=== PATIENT | female | born 1990 | race Caucasian/White ===

== ENCOUNTER 2020-04-08 22:27 | Inpatient (IN) | payer OTHER ==
[~2020-04-08] VITALS: Ht 165.1 cm; Wt 70.9 kg
[2020-04-08 22:45] VITALS: BP 185/108
--- NOTE | 2020-04-08 22:50 | NUR ---
Patient admitted to room 104 from [facility] ED via EMS at 2230, accompanied by Power Transformer Repairer/EMT. Patient alert, oriented to self, knows she is in the hospital but unable to recall which hospital, and is only oriented to year--unable to correctly state day, date, or year, and she is also very forgetful and impulsive. Patient oriented to ICU routine, Nursing call light, TV/Bed control, activity (BR), diet (NPO), Side rail policy, smoking policy, visitation policy with Covid patients, Numeric pain scale, and POC. Dr Wiggins called prior to patient arrival for admit orders to include ativan/haldol for alcohol withdrawal (CIWA)--see orders. See admission information/assessment/CIWA to follow.
[2020-04-08 23:00] VITALS: BP 164/118
--- NOTE | 2020-04-08 23:00 | NUR ---
After explanation to patient, #18 [place] inserted using sterile technique with immediate return of clear straw urine. Patient tolerated procedure well.
[2020-04-08 23:15] VITALS: BP 178/122
[2020-04-08 23:30] VITALS: BP 170/98
[2020-04-08] MEDS ORDERED: cloNIDine HCL 0.1 MG TABLET PO PRN (23:30)
[2020-04-08 23:45] VITALS: BP 162/119
[2020-04-08] MEDS: IV RINGERS,LACTATED 1000ML 1,000 ML IV SCH (23:53)
[2020-04-08 23:59] VITALS: BP 172/120
[2020-04-09] VITALS (24 sets, daily range): BP systolic 145–189; BP diastolic 89–124
[2020-04-09 00:31] LABS: CALCIUM 8.8 mg/dL (8.5-10.1); CREATININE 0.7 mg/dL (0.6-1.0); GFR 98.3; MAGNESIUM 1.9 mg/dL (1.8-2.4); POTASSIUM 3.7 mmol/L (3.5-5.1)
[2020-04-09] MEDS: HALOPERIDOL LACTATE 5 MG/ML VIAL. IVP PRN (01:46)
[2020-04-09] MEDS ORDERED: ATROPINE 0.5 MG/5 ML DISP.SYRINGE. IV PRN (03:00)
[2020-04-09] MEDS ORDERED: IV NORMAL SALINE 500ML BAG 500 ML IV PRN ×2 (03:00→11:30)
[2020-04-09] MEDS: DEXMEDETOMIDINE 400 MCG in IV NORMAL SALINE 100ML 96 ML IV PRN ×4 (03:27→21:22)
[2020-04-09] MEDS: LABETALOL 20 MG/4 ML DISP.SYRIN. IVP PRN ×2 (03:57→17:10)
--- NOTE | 2020-04-09 04:15 | NUR ---
From 49 to 249 patient was given total 14MG Ativan IVP plus 5MG Haldol IVP and patient continued to be veru restless and getting out of bed with CIWA as high as 26 even after medications, SBP elevated to 180's with DBP up to 120's. Patient snoring respirations are now much louder, speech is more garbled and swelling of tongue ahd increased involving almost the entirety of the tongue; RR mid to upper 20's and O2 saturation 92-95%. Dr Feliciano hansen, returned page at 249 and notified of above. Orders received to start Precedex for sedation and give Labetalol 10MG Q2HR PRN IVP and may give up to 30MG Q10MIN until SBP <180. See orders, CIWA, and Vital signs. Right nare nasopharyngeal airway placed for worsening snoring respiration and concern with airway; snoring immediately stopped, RR dropped to 16 and O2 saturation increased consistently to the mid 90's. Will continue to monitor and titrate Precedex for CIWA <6.
[2020-04-09 08:00] LABS: BASO # 0.1 x10^3/uL (0.0-0.2); BASO % 1 % (0-3); EOS % 0 % (0-3); HEMATOCRIT 45.5 % (36.0-47.0); HEMOGLOBIN 15.2 g/dL (12.0-15.5); LYMPH # 0.8 x10^3/uL (1.0-4.8); LYMPH % 10 % (24-48); MEAN CORPUSCULAR HEMOGLOBIN 33 pg (25-35); MEAN CORPUSCULAR HGB CONC 34 g/dL (31-37); MEAN CORPUSCULAR VOLUME 98 fL (79-100); MONO # 0.6 x10^3/uL (0.0-1.1); MONO % 8 % (0-9); NEUT # 6.1 x10^3/uL (1.8-7.7); NEUT % 80 % (31-73); PLATELET COUNT 135 x10^3/uL (140-400); RED BLOOD COUNT 4.65 x10^6/uL (3.50-5.40); RED CELL DISTRIBUTION WIDTH 13.4 % (11.5-14.5); WHITE BLOOD COUNT 7.6 x10^3/uL (4.0-11.0)
--- NOTE | 2020-04-09 08:19 | PDOC1 ---
History and Physical Date of Admission Date of Admission DATE: 04/09/20 TIME: 08:17 Identification/Chief Complaint Chief Complaint dictated Past Medical History Psych: Addictions Family History Family History: Hypertension Social History Smoke: <1 pack per day ALCOHOL: heavy Drugs: Cocaine Current Medications Current Medications Current Medications Lorazepam (Ativan) 4 mg PRN Q1HR PRN PO For CIWA 8-14; Start 04/08/20 at 23:30 Lorazepam (Ativan) 8 mg PRN Q1HR PRN PO For CIWA 15 or greater; Start 04/08/20 at 23:30 Lorazepam (Ativan Inj) 2 mg PRN Q1HR PRN IV For CIWA 8-14; Start 04/08/20 at 23:30 Lorazepam (Ativan Inj) 4 mg PRN Q1HR PRN IV For CIWA 15 or greater Last administered on 04/09/20at 00:52; Start 04/08/20 at 23:30 Haloperidol Lactate (Haldol Inj) 5 mg PRN Q4HRS PRN IVP Hallucinatns,Confusn,Delirium Last administered on 04/09/20at 01:46; Start 04/08/20 at 23:30 Clonidine HCl (Catapres) 0.1 mg PRN Q1HR PRN PO SBP > 180 OR DBP > 100, MRX3 Last administered on 04/09/20at 00:15; Start 04/08/20 at 23:30 Lorazepam (Ativan Inj) 2 mg PRN Q15MIN PRN IV SEE COMMENTS Last administered on 04/08/20at 23:48; Start 04/08/20 at 23:30 Lorazepam (Ativan Inj) 4 mg PRN Q15MIN PRN IV SEE COMMENTS Last administered on 04/09/20at 02:34; Start 04/08/20 at 23:30 Levetiracetam 500 mg/Dextrose 105 ml @ 420 mls/hr Q12HR IV ; Start 04/09/20 at 09:00 Ringer's Solution 1,000 ml @ 100 mls/hr Q10H IV Last administered on 04/08/20at 23:53; Start 04/08/20 at 23:30 Labetalol HCl (Normodyne Iv Push) 10 mg PRN Q2HRS PRN IVP HYPERTENSION Last administered on 04/09/20at 03:57; Start 04/09/20 at 03:00 Dexmedetomidine HCl 400 mcg/ Sodium Chloride 100 ml @ 0 mls/hr CONT PRN IV PER PROTOCOL Last administered on 04/09/20at 03:27; Start 04/09/20 at 03:00 Sodium Chloride 500 ml @ 500 mls/hr 1X PRN PRN IV SEE COMMENTS; Start 04/09/20 at 03:00 Atropine Sulfate (ATROPINE 0.5mg SYRINGE) 0.5 mg PRN Q5MIN PRN IV SEE COMMENTS; Start 04/09/20 at 03:00 Allergies Allergies: Coded Allergies: No Known Drug Allergies (Unverified , 04/08/20) ROS Review of System unable to participate General: YES: Chills Physical Exam General: Cooperative, Other (sedated) Lungs: Clear to auscultation Heart: RRR Breasts: Not examined Abdomen: Normal bowel sounds, Soft Rectal Exam: not examined PELVIC: Examination not indicated Extremities: No cyanosis Vitals Vitals Vital Signs Date Time Temp Pulse Resp B/P (MAP) Pulse Ox O2 Delivery O2 Flow Rate FiO2 04/09/20 07:48 Room Air 04/09/20 07:00 77 14 146/109 (121) 95 04/09/20 04:00 98.8 98.8 Labs Labs Laboratory Tests Test 04/08/20 23:51 04/09/20 07:30 Sodium Level 134 mmol/L (136-145) Potassium Level 3.7 mmol/L (3.5-5.1) Chloride Level 98 mmol/L (98-107) Carbon Dioxide Level 27 mmol/L (21-32) Anion Gap 9 (6-14) Blood Urea Nitrogen 8 mg/dL (7-20) Creatinine 0.7 mg/dL (0.6-1.0) Estimated GFR (Cockcroft-Gault) 98.3 Glucose Level 81 mg/dL (70-99) Calcium Level 8.8 mg/dL (8.5-10.1) Magnesium Level 1.9 mg/dL (1.8-2.4) White Blood Count 7.6 x10^3/uL (4.0-11.0) Red Blood Count 4.65 x10^6/uL (3.50-5.40) Hemoglobin 15.2 g/dL (12.0-15.5) Hematocrit 45.5 % (36.0-47.0) Mean Corpuscular Volume 98 fL (79-100) Mean Corpuscular Hemoglobin 33 pg (25-35) Mean Corpuscular Hemoglobin Concent 34 g/dL (31-37) Red Cell Distribution Width 13.4 % (11.5-14.5) Platelet Count 135 x10^3/uL (140-400) Neutrophils (%) (Auto) 80 % (31-73) Lymphocytes (%) (Auto) 10 % (24-48) Monocytes (%) (Auto) 8 % (0-9) Eosinophils (%) (Auto) 0 % (0-3) Basophils (%) (Auto) 1 % (0-3) Neutrophils # (Auto) 6.1 x10^3/uL (1.8-7.7) Lymphocytes # (Auto) 0.8 x10^3/uL (1.0-4.8) Monocytes # (Auto) 0.6 x10^3/uL (0.0-1.1) Eosinophils # (Auto) 0.0 x10^3/uL (0.0-0.7) Basophils # (Auto) 0.1 x10^3/uL (0.0-0.2) Laboratory Tests Test 04/08/20 23:51 04/09/20 07:30 Sodium Level 134 mmol/L (136-145) Potassium Level 3.7 mmol/L (3.5-5.1) Chloride Level 98 mmol/L (98-107) Carbon Dioxide Level 27 mmol/L (21-32) Anion Gap 9 (6-14) Blood Urea Nitrogen 8 mg/dL (7-20) Creatinine 0.7 mg/dL (0.6-1.0) Estimated GFR (Cockcroft-Gault) 98.3 Glucose Level 81 mg/dL (70-99) Calcium Level 8.8 mg/dL (8.5-10.1) Magnesium Level 1.9 mg/dL (1.8-2.4) White Blood Count 7.6 x10^3/uL (4.0-11.0) Red Blood Count 4.65 x10^6/uL (3.50-5.40) Hemoglobin 15.2 g/dL (12.0-15.5) Hematocrit 45.5 % (36.0-47.0) Mean Corpuscular Volume 98 fL (79-100) Mean Corpuscular Hemoglobin 33 pg (25-35) Mean Corpuscular Hemoglobin Concent 34 g/dL (31-37) Red Cell Distribution Width 13.4 % (11.5-14.5) Platelet Count 135 x10^3/uL (140-400) Neutrophils (%) (Auto) 80 % (31-73) Lymphocytes (%) (Auto) 10 % (24-48) Monocytes (%) (Auto) 8 % (0-9) Eosinophils (%) (Auto) 0 % (0-3) Basophils (%) (Auto) 1 % (0-3) Neutrophils # (Auto) 6.1 x10^3/uL (1.8-7.7) Lymphocytes # (Auto) 0.8 x10^3/uL (1.0-4.8) Monocytes # (Auto) 0.6 x10^3/uL (0.0-1.1) Eosinophils # (Auto) 0.0 x10^3/uL (0.0-0.7) Basophils # (Auto) 0.1 x10^3/uL (0.0-0.2) VTE Prophylaxis Ordered VTE Prophylaxis Devices: No VTE Pharmacological Prophylaxi: Yes Assessment/Plan Assessment/Plan impression SEIZURE, Suspect from alcohol withdrawal, Recurrent hx BINGE DRINKING POLYSUBSTANCE ABUSE HX AMS with disconjugate gaze possible aspiration pneumonia lactic acidosis, possibly from seizure, r/o sepsis ELEVATED LFT'S, TREND TONGUE EDEMA plan blood and urine cultures seizure precautions emperic iv antibiotics ID CONSULT Neurology consult MRI BRAIN dvt prophylaxis GI PROPHYLAXIS ASPIRATION PRECAUTIONS BEAUTY ADVISOR CONSULT IV FLUID SUPPORT NASAL TRUMPET iv thiamine dictated 43 min cc time Justifications for Admission Other Justification BRISA GARRETT MD Apr 09, 2020 08:19
[2020-04-09] MEDS ORDERED: IV NORMAL SALINE 1000ML BAG 1,000 ML IV SCH ×2 (08:45→11:30)
[2020-04-09] MEDS: IV RINGERS,LACTATED 1000ML 1,000 ML IV SCH (08:57)
[2020-04-09] MEDS: levETIRAcetam 500 MG in IV DEXTROSE 5% 100ML 100 ML IV SCH ×2 (08:58→20:54)
--- NOTE | 2020-04-09 09:10 | PDOC2 ---
NEUROLOGY CONSULT Date of Service DOS: DATE: 04/09/20 TIME: 08:53 Reason for Consult Reason for Consult: Seizures, altered mental status Referring Physician Referring Physician: Dr. Ramirez Source Source: Chart review History of Present Illness History of Present Illness The patient is a 29-year-old female brought to the [facility] emergency department by emergency medical services with seizure activity. She was with a friend visiting from [place] for a . They had been drinking a lot of alcohol 04/03-04/04, less on 04/05, last drink on 04/07. The patient also did cocaine a couple weeks ago. 04/08, patient was complaining of fevers, chills, later found by the friend on the floor with abnormal body movements. Emergency medical services arrived, patient declined transfer, but shortly after that, she had another seizure, emergency medical services returned and transferred her to the emergency department. She was somewhat confused in the emergency depar tment. She had another seizure in the emergency department and bit her tongue. There was tongue swelling. Patient reduced [place] Coma Scale to 7, intubation was contemplated, but mental status rapidly improved. She still has a swollen tongue, though. Apparently there is no past history of stroke, seizure, or head injury. No one is available to give further history. She was started on levetiracetam. Here in the [place] intensive care unit the patient is on a Precedex drip and a nasal trumpet, but has not required intubation. She has had no further seizures. Past Medical History Cardiovascular: HTN Psych: Anxiety, Addictions, Depression, Other (Bulimia) Past Surgical History Past Surgical History: No pertinent history Family History Family History: CAD, Hypertension Social History Social History Does drink alcohol, use cocaine, is employed, single, lives in [place] Current Medications Current Medications Current Medications Lorazepam (Ativan) 4 mg PRN Q1HR PRN PO For CIWA 8-14; Start 04/08/20 at 23:30 Lorazepam (Ativan) 8 mg PRN Q1HR PRN PO For CIWA 15 or greater; Start 04/08/20 at 23:30 Lorazepam (Ativan Inj) 2 mg PRN Q1HR PRN IV For CIWA 8-14; Start 04/08/20 at 23:30 Lorazepam (Ativan Inj) 4 mg PRN Q1HR PRN IV For CIWA 15 or greater Last administered on 04/09/20at 00:52; Start 04/08/20 at 23:30 Haloperidol Lactate (Haldol Inj) 5 mg PRN Q4HRS PRN IVP Hallucinatns,Confusn,Delirium Last administered on 04/09/20at 01:46; Start 04/08/20 at 23:30 Clonidine HCl (Catapres) 0.1 mg PRN Q1HR PRN PO SBP > 180 OR DBP > 100, MRX3 Last administered on 04/09/20at 00:15; Start 04/08/20 at 23:30 Lorazepam (Ativan Inj) 2 mg PRN Q15MIN PRN IV SEE COMMENTS Last administered on 04/08/20at 23:48; Start 04/08/20 at 23:30 Lorazepam (Ativan Inj) 4 mg PRN Q15MIN PRN IV SEE COMMENTS Last administered on 04/09/20at 02:34; Start 04/08/20 at 23:30 Levetiracetam 500 mg/Dextrose 105 ml @ 420 mls/hr Q12HR IV ; Start 04/09/20 at 09:00 Ringer's Solution 1,000 ml @ 100 mls/hr Q10H IV Last administered on 04/08/20at 23:53; Start 04/08/20 at 23:30 Labetalol HCl (Normodyne Iv Push) 10 mg PRN Q2HRS PRN IVP HYPERTENSION Last administered on 04/09/20at 03:57; Start 04/09/20 at 03:00 Dexmedetomidine HCl 400 mcg/ Sodium Chloride 100 ml @ 0 mls/hr CONT PRN IV PER PROTOCOL Last administered on 04/09/20at 03:27; Start 04/09/20 at 03:00 Sodium Chloride 500 ml @ 500 mls/hr 1X PRN PRN IV SEE COMMENTS; Start 04/09/20 at 03:00 Atropine Sulfate (ATROPINE 0.5mg SYRINGE) 0.5 mg PRN Q5MIN PRN IV SEE COMMENTS; Start 04/09/20 at 03:00 Sodium Chloride 1,000 ml @ 50 mls/hr Q20H IV ; Start 04/09/20 at 08:45 Allergies Allergies: Coded Allergies: No Known Drug Allergies (Unverified , 04/08/20) ROS Review of System Unobtainable Physical Exam Physical Examination General: Well-developed, well-nourished white female in no acute distress HEENT: Normocephalic. Tongue is swollen. Temporal arteriespulsatile and nontender. Neck: Supple without bruit, no meningismus Musculoskeletal: Stability:see neurologic. Gait exam:see neurologic. Tone:see neurologic.Strength:see neurologic. Neurological: Mental Status:orientation, memory, attention span/concentration, language, fund of knowledge: Sedated, nasal trumpet in place, minimal response to pain. Cranial Nerves:Pupils equal and reactive to light, extraocular movements areintact, but gaze is disconjugate. There is no facial asymmetry.All other cranial related problems are negative except as mentioned before.Reflexes:2+ and symmetric with flexor plantar responses. Motor:Slight withdrawal to pain, with normal tone and bulk. Coordination and gait:Not cooperative. Sensory:Not cooperative. Vitals VITALS Vital Signs Date Time Temp Pulse Resp B/P (MAP) Pulse Ox O2 Delivery O2 Flow Rate FiO2 04/09/20 07:48 Room Air 04/09/20 07:00 77 14 146/109 (121) 95 04/09/20 04:00 98.8 98.8 Labs Labs Laboratory Tests Test 04/08/20 23:51 04/09/20 07:30 Sodium Level 134 mmol/L (136-145) Potassium Level 3.7 mmol/L (3.5-5.1) Chloride Level 98 mmol/L (98-107) Carbon Dioxide Level 27 mmol/L (21-32) Anion Gap 9 (6-14) Blood Urea Nitrogen 8 mg/dL (7-20) Creatinine 0.7 mg/dL (0.6-1.0) Estimated GFR (Cockcroft-Gault) 98.3 Glucose Level 81 mg/dL (70-99) Calcium Level 8.8 mg/dL (8.5-10.1) Magnesium Level 1.9 mg/dL (1.8-2.4) White Blood Count 7.6 x10^3/uL (4.0-11.0) Red Blood Count 4.65 x10^6/uL (3.50-5.40) Hemoglobin 15.2 g/dL (12.0-15.5) Hematocrit 45.5 % (36.0-47.0) Mean Corpuscular Volume 98 fL (79-100) Mean Corpuscular Hemoglobin 33 pg (25-35) Mean Corpuscular Hemoglobin Concent 34 g/dL (31-37) Red Cell Distribution Width 13.4 % (11.5-14.5) Platelet Count 135 x10^3/uL (140-400) Neutrophils (%) (Auto) 80 % (31-73) Lymphocytes (%) (Auto) 10 % (24-48) Monocytes (%) (Auto) 8 % (0-9) Eosinophils (%) (Auto) 0 % (0-3) Basophils (%) (Auto) 1 % (0-3) Neutrophils # (Auto) 6.1 x10^3/uL (1.8-7.7) Lymphocytes # (Auto) 0.8 x10^3/uL (1.0-4.8) Monocytes # (Auto) 0.6 x10^3/uL (0.0-1.1) Eosinophils # (Auto) 0.0 x10^3/uL (0.0-0.7) Basophils # (Auto) 0.1 x10^3/uL (0.0-0.2) Laboratory Tests Test 04/08/20 23:51 04/09/20 07:30 Sodium Level 134 mmol/L (136-145) Potassium Level 3.7 mmol/L (3.5-5.1) Chloride Level 98 mmol/L (98-107) Carbon Dioxide Level 27 mmol/L (21-32) Anion Gap 9 (6-14) Blood Urea Nitrogen 8 mg/dL (7-20) Creatinine 0.7 mg/dL (0.6-1.0) Estimated GFR (Cockcroft-Gault) 98.3 Glucose Level 81 mg/dL (70-99) Calcium Level 8.8 mg/dL (8.5-10.1) Magnesium Level 1.9 mg/dL (1.8-2.4) White Blood Count 7.6 x10^3/uL (4.0-11.0) Red Blood Count 4.65 x10^6/uL (3.50-5.40) Hemoglobin 15.2 g/dL (12.0-15.5) Hematocrit 45.5 % (36.0-47.0) Mean Corpuscular Volume 98 fL (79-100) Mean Corpuscular Hemoglobin 33 pg (25-35) Mean Corpuscular Hemoglobin Concent 34 g/dL (31-37) Red Cell Distribution Width 13.4 % (11.5-14.5) Platelet Count 135 x10^3/uL (140-400) Neutrophils (%) (Auto) 80 % (31-73) Lymphocytes (%) (Auto) 10 % (24-48) Monocytes (%) (Auto) 8 % (0-9) Eosinophils (%) (Auto) 0 % (0-3) Basophils (%) (Auto) 1 % (0-3) Neutrophils # (Auto) 6.1 x10^3/uL (1.8-7.7) Lymphocytes # (Auto) 0.8 x10^3/uL (1.0-4.8) Monocytes # (Auto) 0.6 x10^3/uL (0.0-1.1) Eosinophils # (Auto) 0.0 x10^3/uL (0.0-0.7) Basophils # (Auto) 0.1 x10^3/uL (0.0-0.2) [facility] labs: Laboratory Tests Test 04/08/20 16:15 04/08/20 16:55 04/08/20 17:55 White Blood Count 5.1 x10^3/uL (4.0-11.0) Red Blood Count 5.16 x10^6/uL (3.50-5.40) Hemoglobin 17.0 g/dL (12.0-15.5) H Hematocrit 51.4 % (36.0-47.0) H Mean Corpuscular Volume 100 fL (79-100) Mean Corpuscular Hemoglobin 33 pg (25-35) Mean Corpuscular Hemoglobin Concent 33 g/dL (31-37) Red Cell Distribution Width 13.4 % (11.5-14.5) Platelet Count 150 x10^3/uL (140-400) Neutrophils (%) (Auto) 71 % (31-73) Lymphocytes (%) (Auto) 19 % (24-48) L Monocytes (%) (Auto) 8 % (0-9) Eosinophils (%) (Auto) 1 % (0-3) Basophils (%) (Auto) 1 % (0-3) Neutrophils # (Auto) 3.6 x10^3uL (1.8-7.7) Lymphocytes # (Auto) 1.0 x10^3/uL (1.0-4.8) Monocytes # (Auto) 0.4 x10^3/uL (0.0-1.1) Eosinophils # (Auto) 0.0 x10^3/uL (0.0-0.7) Basophils # (Auto) 0.1 x10^3/uL (0.0-0.2) Sodium Level 137 mmol/L (136-145) Potassium Level 3.9 mmol/L (3.5-5.1) Chloride Level 98 mmol/L (98-107) Carbon Dioxide Level 21 mmol/L (21-32) Anion Gap 18 (6-14) H Blood Urea Nitrogen 10 mg/dL (7-20) Creatinine 1.0 mg/dL (0.6-1.0) Estimated GFR (Cockcroft-Gault) 65.1 BUN/Creatinine Ratio 10 (6-20) Glucose Level 154 mg/dL (70-99) H Calcium Level 10.2 mg/dL (8.5-10.1) H Magnesium Level 1.3 mg/dL (1.8-2.4) L Total Bilirubin 1.5 mg/dL (0.2-1.0) H Aspartate Amino Transferase (AST) 215 U/L (15-37) H Alanine Aminotransferase (ALT) 117 U/L (14-59) H Alkaline Phosphatase 90 U/L (46-116) Troponin I Quantitative < 0.017 ng/mL (0-0.055) Total Protein 8.7 g/dL (6.4-8.2) H Albumin 3.8 g/dL (3.4-5.0) Albumin/Globulin Ratio 0.8 (1.0-1.7) L Lipase 235 U/L (73-393) Serum Test, Qualitative Negative (NEG) Salicylates Level < 2.8 mg/dL (2.8-20.0) L Salicylate Last Dose Date Unknown Salicylate Last Dose Time Unknown Acetaminophen Level < 2.0 mcg/mL (10-30) L Acetaminophen Last Dose Date Unknown Acetaminophen Last Dose Time Unknown Ethyl Alcohol Level < 10 mg/dL (0-10) Lactic Acid Level 9.3 mmol/L (0.4-2.0) *H Ammonia 22 mcmol/L (11-34) Urine Collection Type U cath Urine Color Yellow Urine Clarity Clear Urine pH 6.0 Urine Specific [place] 1.025 Urine Protein >100 mg/dl (NEG-TRACE) Urine Glucose (UA) Neg mg/dL (NEG) Urine Ketones (Stick) Neg mg/dL (NEG) Urine Blood Mod (NEG) Urine Nitrite Neg (NEG) Urine Bilirubin Neg (NEG) Urine Urobilinogen Dipstick 0.2 mg/dL (0.2 mg/dL) Urine Leukocyte Esterase Neg (NEG) Urine RBC 6-10 /HPF (0-2) Urine WBC 1-4 /HPF (0-4) Urine Squamous Epithelial Cells Few /LPF Urine Bacteria 0 /HPF (0-FEW) Urine Hyaline Casts Occ /HPF Urine Mucus Slight /LPF Urine Opiates Screen Neg (NEG) Urine Methadone Screen Neg (NEG) Urine Barbiturates Neg (NEG) Urine Phencyclidine Screen Neg (NEG) Urine Amphetamine/Methamphetamine Neg (NEG) Urine Benzodiazepines Screen Neg (NEG) Urine Cocaine Screen Neg (NEG) Urine Cannabinoids Screen Neg (NEG) Urine Ethyl Alcohol Neg (NEG) Vital Signs: Vital Signs Date Time Temp Pulse Resp B/P (MAP) Pulse Ox O2 Delivery O2 Flow Rate FiO2 04/08/20 18:26 94 16 142/102 (115) 97 Room Air 04/08/20 17:[address] head and cervical spine. CTA head and neck INDICATION: Altered mental status TECHNIQUE: Sequential axial images through the head and cervical spine were obtained without the administration of IV contrast. Sequential axial images through the head and neck were obtained following the administration of 100 mL of Isovue-370. 3-D reformatted images were reconstructed from the axial data and reviewed. Comparisons: None FINDINGS: Head: No focal parenchymal lesion or hemorrhage is identified. There is no midline shift or sulcal effacement. No acute vascular territory infarction is identified. Berrios-white distinction is preserved. The ventricular system is within normal limits without compression hydrocephalus. The basal cisterns are well maintained. The visualized portions of the paranasal sinuses and mastoid air cells are well- pneumatized. No acute fractures. Cervical spine: Straightening of the cervical spine which may be positional. Vertebral body heights are well-maintained. Fracture to the cervical spine is not identified. No significant spondylotic change in the cervical spine. Visualized paraspinal soft tissues are unremarkable. CTA NECK: Visualized portions of thoracic aorta are unremarkable. Standard three-vessel aortic arch anatomy. Right common carotid artery is patent without evidence of stenosis, occlusion or aneurysm. Cervical segment of the right internal carotid artery is patent without evidence of stenosis, occlusion or aneurysm. Left common carotid artery is patent without evidence stenosis, occlusion or aneurysm. Cervical segment of the left internal carotid artery is patent without evidence stenosis, occlusion or aneurysm. Right vertebral artery is patent to the basilar confluence without evidence of stenosis, occlusion or aneurysm. Left vertebral artery is patent to basilar confluence without evidence of stenosis, occlusion or aneurysm. Visualized paraspinal soft tissues are unremarkable. CTA head: Intracranial segments of the right internal carotid artery are patent without evidence of stenosis, occlusion or aneurysm. Right MCA is patent. Right RONI is patent. Cranial segments of the left internal carotid artery are patent without evidence of stenosis, occlusion or aneurysm. Left MCA is patent. Left RONI is patent. Basilar artery is patent without evidence of stenosis, occlusion or aneurysm. service center coordinator are patent bilaterally. origin of the left JUKEBOX OPERATOR. IMPRESSION: 1. No acute intracranial abnormality. 2. Negative CT C-spine for acute traumatic injury. 3. Patent intracranial and cervical arterial vasculature without evidence of stenosis, occlusion or aneurysm. Assessment/Plan Assessment/Plan Impression: New seizures in a patient with drug and substance abuse, psychiatric disease, stress from friend's , but she also had some fevers and chills raising the possibility of infection Disconjugate gaze Initially had lactic acidosis Recommendations: Stat MRI of the brain Continue levetiracetam Continue Precedex Thiamine Discussed with Dr. Ramirez Thank you for letting me help with the patient's care. RASHEED TRACY MD Apr 09, 2020 09:10
[2020-04-09 09:33] LABS: ALBUMIN 3.2 g/dL (3.4-5.0); ALBUMIN/GLOBULIN RATIO 0.7 (1.0-1.7); CALCIUM 8.6 mg/dL (8.5-10.1); CREATININE 0.7 mg/dL (0.6-1.0); GFR 98.3; MAGNESIUM 1.8 mg/dL (1.8-2.4); POTASSIUM 3.4 mmol/L (3.5-5.1); TOTAL BILIRUBIN 1.6 mg/dL (0.2-1.0); TOTAL PROTEIN 7.6 g/dL (6.4-8.2)
[2020-04-09 09:34] LABS: BILIRUBIN,URINE NEGATIVE (NEG); CLARITY,URINE CLEAR; COLOR,URINE YELLOW; NITRITE,URINE NEGATIVE (NEG); PROTEIN,URINE 100 mg/dL (NEG-TRACE)
[2020-04-09 09:35] LABS: BASE EXCESS ABG -3 mmol/L (-3-3); HCO3 ABG 20 mmol/L (21-28); PCO2 ABG 31 mmHg (35-46); PO2 ABG 70 mmHg (85-108); SAT O2 ABG 95 % (92-99)
[2020-04-09 09:38] LABS: FIO2 ABG 21/RA
[2020-04-09 09:43] LABS: AMPHETAMINE/METHAMPHETAMINE NEG (NEG); BARBITURATES NEG (NEG); BENZODIAZEPINES NEG (NEG); CANNABINOIDS NEG (NEG); COCAINE NEG (NEG); METHADONE NEG (NEG); OPIATES NEG (NEG); PHENCYCLIDINE NEG (NEG)
[2020-04-09 09:46] LABS: BACTERIA,URINE FEW /HPF (0-FEW)
[2020-04-09] MEDS: THIAMINE IM 200 MG/2 ML VIAL. IM SCH (09:55)
[2020-04-09] MEDS ORDERED: ONDANSETRON PF 4 MG/2 ML VIAL. IVP PRN (10:15)
[2020-04-09] MEDS ORDERED: MAGNESIUM HYDROXIDE 2,400 MG/30 ML ORAL.SUSP. PO PRN (10:15)
[2020-04-09] MEDS ORDERED: hydrALAZINE 20 MG/ML VIAL. IVP PRN (10:15)
[2020-04-09] MEDS ORDERED: MAG HYDROX/ALUMINUM HYD/SIMETH 30 ML ORAL.SUSP PO PRN (10:15)
[2020-04-09] MEDS ORDERED: CALCIUM CARBONATE 500 MG TAB.CHEW PO PRN (10:15)
[2020-04-09] MEDS ORDERED: 0.9 % SODIUM CHLORIDE 10 ML DISP.SYRIN. IV PRN (10:15)
[2020-04-09] MEDS ORDERED: POTASSIUM CHLORIDE 20 MEQ TABLET.ER. PO ONE (10:15)
[2020-04-09] MEDS ORDERED: PROCHLORPERAZINE 25 MG SUPP.RECT. PR PRN (10:15)
[2020-04-09] MEDS: hydrALAZINE 20 MG/ML VIAL. IVP PRN ×2 (10:50→23:04)
[2020-04-09] MEDS ORDERED: cefTRIAXone IV Push 1 GM VIAL. IVP SCH (11:00)
[2020-04-09] MEDS ORDERED: cloNIDine TTS-1 1 PATCH PATCH.TDWK TD SCH (11:00)
[2020-04-09] MEDS ORDERED: VANCOMYCIN PER PHARMACY MC PRN (11:15)
--- NOTE | 2020-04-09 11:28 | PDOC ---
Infectious Disease Note Vital Sign Vital Signs Vital Signs Date Time Temp Pulse Resp B/P (MAP) Pulse Ox O2 Delivery O2 Flow Rate FiO2 04/09/20 11:00 82 16 146/95 (112) 94 Room Air 04/09/20 08:00 98.1 98.1 Labs Lab Laboratory Tests Test 04/08/20 23:51 04/09/20 07:30 04/09/20 09:08 04/09/20 09:10 Sodium Level 134 mmol/L (136-145) 138 mmol/L (136-145) Potassium Level 3.7 mmol/L (3.5-5.1) 3.4 mmol/L (3.5-5.1) Chloride Level 98 mmol/L (98-107) 100 mmol/L (98-107) Carbon Dioxide Level 27 mmol/L (21-32) 25 mmol/L (21-32) Anion Gap 9 (6-14) 13 (6-14) Blood Urea Nitrogen 8 mg/dL (7-20) 7 mg/dL (7-20) Creatinine 0.7 mg/dL (0.6-1.0) 0.7 mg/dL (0.6-1.0) Estimated GFR (Cockcroft-Gault) 98.3 98.3 Glucose Level 81 mg/dL (70-99) 99 mg/dL (70-99) Calcium Level 8.8 mg/dL (8.5-10.1) 8.6 mg/dL (8.5-10.1) Magnesium Level 1.9 mg/dL (1.8-2.4) 1.8 mg/dL (1.8-2.4) White Blood Count 7.6 x10^3/uL (4.0-11.0) Red Blood Count 4.65 x10^6/uL (3.50-5.40) Hemoglobin 15.2 g/dL (12.0-15.5) Hematocrit 45.5 % (36.0-47.0) Mean Corpuscular Volume 98 fL (79-100) Mean Corpuscular Hemoglobin 33 pg (25-35) Mean Corpuscular Hemoglobin Concent 34 g/dL (31-37) Red Cell Distribution Width 13.4 % (11.5-14.5) Platelet Count 135 x10^3/uL (140-400) Neutrophils (%) (Auto) 80 % (31-73) Lymphocytes (%) (Auto) 10 % (24-48) Monocytes (%) (Auto) 8 % (0-9) Eosinophils (%) (Auto) 0 % (0-3) Basophils (%) (Auto) 1 % (0-3) Neutrophils # (Auto) 6.1 x10^3/uL (1.8-7.7) Lymphocytes # (Auto) 0.8 x10^3/uL (1.0-4.8) Monocytes # (Auto) 0.6 x10^3/uL (0.0-1.1) Eosinophils # (Auto) 0.0 x10^3/uL (0.0-0.7) Basophils # (Auto) 0.1 x10^3/uL (0.0-0.2) BUN/Creatinine Ratio 10 (6-20) Total Bilirubin 1.6 mg/dL (0.2-1.0) Aspartate Amino Transf (AST/SGOT) 106 U/L (15-37) Alanine Aminotransferase (ALT/SGPT) 86 U/L (14-59) Alkaline Phosphatase 69 U/L (46-116) Lactate Dehydrogenase 347 U/L (81-234) Total Protein 7.6 g/dL (6.4-8.2) Albumin 3.2 g/dL (3.4-5.0) Albumin/Globulin Ratio 0.7 (1.0-1.7) Thyroid Stimulating Hormone (TSH) 3.111 uIU/mL (0.358-3.74) Ethyl Alcohol Level < 10 mg/dL (0-10) O2 Saturation 95 % (92-99) Arterial Blood pH 7.43 (7.35-7.45) Arterial Blood pCO2 at Patient Temp 31 mmHg (35-46) Arterial Blood pO2 at Patient Temp 70 mmHg (85-108) Arterial Blood HCO3 20 mmol/L (21-28) Arterial Blood Base Excess -3 mmol/L (-3-3) FiO2 21/ SARS-CoV-2 Antigen (Rapid) Negative (NEGATIVE) Test 04/09/20 09:20 Urine Collection Type Unknown Urine Color Yellow Urine Clarity Clear Urine pH 7.0 (<5.0-8.0) Urine Specific [place] 1.010 (1.000-1.030) Urine Protein 100 mg/dL (NEG-TRACE) Urine Glucose (UA) Negative mg/dL (NEG) Urine Ketones (Stick) 15 mg/dL (NEG) Urine Blood Large (NEG) Urine Nitrite Negative (NEG) Urine Bilirubin Negative (NEG) Urine Urobilinogen Dipstick 1.0 mg/dL (0.2 mg/dL) Urine Leukocyte Esterase Trace (NEG) Urine RBC 3-5 /HPF (0-2) Urine WBC 5-10 /HPF (0-4) Urine Bacteria Few /HPF (0-FEW) Urine Opiates Screen Neg (NEG) Urine Methadone Screen Neg (NEG) Urine Barbiturates Neg (NEG) Urine Phencyclidine Screen Neg (NEG) Urine Amphetamine/Methamphetamine Neg (NEG) Urine Benzodiazepines Screen Neg (NEG) Urine Cocaine Screen Neg (NEG) Urine Cannabinoids Screen Neg (NEG) Urine Ethyl Alcohol Neg (NEG) Objective Assessment Encephalopathy, post-ictal New-onset seizure Aspiration suspected Lactic acidosis Transaminitis Hypertension h/o ETOH/drug abuse Plan Plan of Care Discussed with nursing MRI brain pending Change ceftriaxone to cefepime Continue Vanco Start acyclovir, Monitor renal functions closely Maintain aspiration precaution Follow-up labs and cultures Thank you Attending Co-Sign Patient seen and examined. Discussed with DIRECTOR QUALITY SYSTEMS. Co- formulated assessment and plan, Critically ill MIGUEL ÁNGEL COPELAND APRN Apr 09, 2020 11:28 PEPE GALEANO MD Apr 09, 2020 12:11
[2020-04-09] MEDS ORDERED: IV NORMAL SALINE 1000ML BAG 1,000 ML IV PRN (11:30)
[2020-04-09 11:41] LABS: D-DIMER 2.09 ug/mlFEU (0.00-0.50)
--- NOTE | 2020-04-09 11:51 | PDOC ---
PULMONARY PROGRESS NOTES DATE: 04/09/20 TIME: 11:44 Vitals Vital Signs Date Time Temp Pulse Resp B/P (MAP) Pulse Ox O2 Delivery O2 Flow Rate FiO2 04/09/20 11:33 Room Air 04/09/20 11:00 82 16 146/95 (112) 94 04/09/20 08:00 98.1 98.1 Labs Laboratory Tests Test 04/08/20 23:51 04/09/20 07:30 04/09/20 09:08 04/09/20 09:10 Sodium Level 134 mmol/L (136-145) 138 mmol/L (136-145) Potassium Level 3.7 mmol/L (3.5-5.1) 3.4 mmol/L (3.5-5.1) Chloride Level 98 mmol/L (98-107) 100 mmol/L (98-107) Carbon Dioxide Level 27 mmol/L (21-32) 25 mmol/L (21-32) Anion Gap 9 (6-14) 13 (6-14) Blood Urea Nitrogen 8 mg/dL (7-20) 7 mg/dL (7-20) Creatinine 0.7 mg/dL (0.6-1.0) 0.7 mg/dL (0.6-1.0) Estimated GFR (Cockcroft-Gault) 98.3 98.3 Glucose Level 81 mg/dL (70-99) 99 mg/dL (70-99) Calcium Level 8.8 mg/dL (8.5-10.1) 8.6 mg/dL (8.5-10.1) Magnesium Level 1.9 mg/dL (1.8-2.4) 1.8 mg/dL (1.8-2.4) White Blood Count 7.6 x10^3/uL (4.0-11.0) Red Blood Count 4.65 x10^6/uL (3.50-5.40) Hemoglobin 15.2 g/dL (12.0-15.5) Hematocrit 45.5 % (36.0-47.0) Mean Corpuscular Volume 98 fL (79-100) Mean Corpuscular Hemoglobin 33 pg (25-35) Mean Corpuscular Hemoglobin Concent 34 g/dL (31-37) Red Cell Distribution Width 13.4 % (11.5-14.5) Platelet Count 135 x10^3/uL (140-400) Neutrophils (%) (Auto) 80 % (31-73) Lymphocytes (%) (Auto) 10 % (24-48) Monocytes (%) (Auto) 8 % (0-9) Eosinophils (%) (Auto) 0 % (0-3) Basophils (%) (Auto) 1 % (0-3) Neutrophils # (Auto) 6.1 x10^3/uL (1.8-7.7) Lymphocytes # (Auto) 0.8 x10^3/uL (1.0-4.8) Monocytes # (Auto) 0.6 x10^3/uL (0.0-1.1) Eosinophils # (Auto) 0.0 x10^3/uL (0.0-0.7) Basophils # (Auto) 0.1 x10^3/uL (0.0-0.2) Fibrinogen 400 mg/dL (200-440) D-Dimer (Nica) 2.09 ug/mlFEU (0.00-0.50) BUN/Creatinine Ratio 10 (6-20) Total Bilirubin 1.6 mg/dL (0.2-1.0) Aspartate Amino Transf (AST/SGOT) 106 U/L (15-37) Alanine Aminotransferase (ALT/SGPT) 86 U/L (14-59) Alkaline Phosphatase 69 U/L (46-116) Lactate Dehydrogenase 347 U/L (81-234) C-Reactive Protein, Quantitative 0.8 mg/L (0-3.3) Total Protein 7.6 g/dL (6.4-8.2) Albumin 3.2 g/dL (3.4-5.0) Albumin/Globulin Ratio 0.7 (1.0-1.7) Thyroid Stimulating Hormone (TSH) 3.111 uIU/mL (0.358-3.74) Ethyl Alcohol Level < 10 mg/dL (0-10) O2 Saturation 95 % (92-99) Arterial Blood pH 7.43 (7.35-7.45) Arterial Blood pCO2 at Patient Temp 31 mmHg (35-46) Arterial Blood pO2 at Patient Temp 70 mmHg (85-108) Arterial Blood HCO3 20 mmol/L (21-28) Arterial Blood Base Excess -3 mmol/L (-3-3) FiO2 21/ra SARS-CoV-2 Antigen (Rapid) Negative (NEGATIVE) Test 04/09/20 09:20 Urine Collection Type Unknown Urine Color Yellow Urine Clarity Clear Urine pH 7.0 (<5.0-8.0) Urine Specific [place] 1.010 (1.000-1.030) Urine Protein 100 mg/dL (NEG-TRACE) Urine Glucose (UA) Negative mg/dL (NEG) Urine Ketones (Stick) 15 mg/dL (NEG) Urine Blood Large (NEG) Urine Nitrite Negative (NEG) Urine Bilirubin Negative (NEG) Urine Urobilinogen Dipstick 1.0 mg/dL (0.2 mg/dL) Urine Leukocyte Esterase Trace (NEG) Urine RBC 3-5 /HPF (0-2) Urine WBC 5-10 /HPF (0-4) Urine Bacteria Few /HPF (0-FEW) Urine Opiates Screen Neg (NEG) Urine Methadone Screen Neg (NEG) Urine Barbiturates Neg (NEG) Urine Phencyclidine Screen Neg (NEG) Urine Amphetamine/Methamphetamine Neg (NEG) Urine Benzodiazepines Screen Neg (NEG) Urine Cocaine Screen Neg (NEG) Urine Cannabinoids Screen Neg (NEG) Urine Ethyl Alcohol Neg (NEG) Laboratory Tests Test 04/08/20 23:51 04/09/20 07:30 04/09/20 09:08 04/09/20 09:10 Sodium Level 134 mmol/L (136-145) 138 mmol/L (136-145) Potassium Level 3.7 mmol/L (3.5-5.1) 3.4 mmol/L (3.5-5.1) Chloride Level 98 mmol/L (98-107) 100 mmol/L (98-107) Carbon Dioxide Level 27 mmol/L (21-32) 25 mmol/L (21-32) Anion Gap 9 (6-14) 13 (6-14) Blood Urea Nitrogen 8 mg/dL (7-20) 7 mg/dL (7-20) Creatinine 0.7 mg/dL (0.6-1.0) 0.7 mg/dL (0.6-1.0) Estimated GFR (Cockcroft-Gault) 98.3 98.3 Glucose Level 81 mg/dL (70-99) 99 mg/dL (70-99) Calcium Level 8.8 mg/dL (8.5-10.1) 8.6 mg/dL (8.5-10.1) Magnesium Level 1.9 mg/dL (1.8-2.4) 1.8 mg/dL (1.8-2.4) White Blood Count 7.6 x10^3/uL (4.0-11.0) Red Blood Count 4.65 x10^6/uL (3.50-5.40) Hemoglobin 15.2 g/dL (12.0-15.5) Hematocrit 45.5 % (36.0-47.0) Mean Corpuscular Volume 98 fL (79-100) Mean Corpuscular Hemoglobin 33 pg (25-35) Mean Corpuscular Hemoglobin Concent 34 g/dL (31-37) Red Cell Distribution Width 13.4 % (11.5-14.5) Platelet Count 135 x10^3/uL (140-400) Neutrophils (%) (Auto) 80 % (31-73) Lymphocytes (%) (Auto) 10 % (24-48) Monocytes (%) (Auto) 8 % (0-9) Eosinophils (%) (Auto) 0 % (0-3) Basophils (%) (Auto) 1 % (0-3) Neutrophils # (Auto) 6.1 x10^3/uL (1.8-7.7) Lymphocytes # (Auto) 0.8 x10^3/uL (1.0-4.8) Monocytes # (Auto) 0.6 x10^3/uL (0.0-1.1) Eosinophils # (Auto) 0.0 x10^3/uL (0.0-0.7) Basophils # (Auto) 0.1 x10^3/uL (0.0-0.2) Fibrinogen 400 mg/dL (200-440) D-Dimer (Nica) 2.09 ug/mlFEU (0.00-0.50) BUN/Creatinine Ratio 10 (6-20) Total Bilirubin 1.6 mg/dL (0.2-1.0) Aspartate Amino Transf (AST/SGOT) 106 U/L (15-37) Alanine Aminotransferase (ALT/SGPT) 86 U/L (14-59) Alkaline Phosphatase 69 U/L (46-116) Lactate Dehydrogenase 347 U/L (81-234) C-Reactive Protein, Quantitative 0.8 mg/L (0-3.3) Total Protein 7.6 g/dL (6.4-8.2) Albumin 3.2 g/dL (3.4-5.0) Albumin/Globulin Ratio 0.7 (1.0-1.7) Thyroid Stimulating Hormone (TSH) 3.111 uIU/mL (0.358-3.74) Ethyl Alcohol Level < 10 mg/dL (0-10) O2 Saturation 95 % (92-99) Arterial Blood pH 7.43 (7.35-7.45) Arterial Blood pCO2 at Patient Temp 31 mmHg (35-46) Arterial Blood pO2 at Patient Temp 70 mmHg (85-108) Arterial Blood HCO3 20 mmol/L (21-28) Arterial Blood Base Excess -3 mmol/L (-3-3) FiO2 SARS-CoV-2 Antigen (Rapid) Negative (NEGATIVE) Test 04/09/20 09:20 Urine Collection Type Unknown Urine Color Yellow Urine Clarity Clear Urine pH 7.0 (<5.0-8.0) Urine Specific [place] 1.010 (1.000-1.030) Urine Protein 100 mg/dL (NEG-TRACE) Urine Glucose (UA) Negative mg/dL (NEG) Urine Ketones (Stick) 15 mg/dL (NEG) Urine Blood Large (NEG) Urine Nitrite Negative (NEG) Urine Bilirubin Negative (NEG) Urine Urobilinogen Dipstick 1.0 mg/dL (0.2 mg/dL) Urine Leukocyte Esterase Trace (NEG) Urine RBC 3-5 /HPF (0-2) Urine WBC 5-10 /HPF (0-4) Urine Bacteria Few /HPF (0-FEW) Urine Opiates Screen Neg (NEG) Urine Methadone Screen Neg (NEG) Urine Barbiturates Neg (NEG) Urine Phencyclidine Screen Neg (NEG) Urine Amphetamine/Methamphetamine Neg (NEG) Urine Benzodiazepines Screen Neg (NEG) Urine Cocaine Screen Neg (NEG) Urine Cannabinoids Screen Neg (NEG) Urine Ethyl Alcohol Neg (NEG) Impression . Full note dictated Respiratory distress secondary to recent seizure swollen tongue Fever work-up in progress MRI of the head pending. TONNY PYLE MD Apr 09, 2020 11:51
[2020-04-09] MEDS ORDERED: VANCOMYCIN 1.75 GM in IV NORMAL SALINE 500ML BAG 500 ML IV ONE (12:00)
[2020-04-09] MEDS: IPRATRPIUM/ALBUTEROL 0.5/2.5MG 3 ML NEBU. NEB SCH ×3 (12:00→20:20)
--- NOTE | 2020-04-09 12:12 | PDOC2 ---
JOI FRANCOIS [employer] PIPE FINISHER 04/09/20 1212: CARDIAC CONSULT DATE OF CONSULT Date of Consult DATE: 04/09/20 TIME: 11:45 REASON FOR CONSULT Reason for Consult: Severe HTN REFERRING PHYSICIAN Referring Physician: Fullbright SOURCE Source: Chart review HISTORY OF PRESENT ILLNESS HISTORY OF PRESENT ILLNESS This is a 29 yo female admitted for altered mental status. Pt recently attended a and was noted to be heavily druinking ETOH. Unclear what type and how often. She does have hx of alcoholism as well as cocaine use. She was noted by her friend on the floor having seizure like activity and unresponsive and noted that she bit her tongue. [facility] already lucid only for EMS to come back as she had another seizure like activity. It appears that she is visiting from [place]. No family is available at this time. She was then transferred to [facility] for further neuro evaluation and treatment. Presently she is sedated and has a nasal trumphe t due to swollen tongue from injury. Consult is for uncontrolled HTN. No associated chest pain SOA at the time of seizures. No arrhythmia episodes so far. No known cardiac hx and no hx of seizures. Unclear exactly her underlying mental health issues and could not conffirm any home meds. PAST MEDICAL HISTORY Past Medical History HTN, addictions, Bulimia?, anxiety PAST SURGICAL HISTORY Past Surgical History: No pertinent history FAMILY HISTORY Family History: Family History Unknown SOCIAL HISTORY ALCOHOL: heavy Drugs: Cocaine CURRENT MEDICATIONS CURRENT MEDICATIONS Current Medications Medications (Trade) Dose Ordered Sig/Stephanie Route PRN Reason Start Time Stop Time Status Last Admin Dose Admin Lorazepam (Ativan Inj) 2 mg PRN Q1HR PRN IV For CIWA 8-14 04/08/20 23:30 04/09/20 09:52 Lorazepam (Ativan Inj) 4 mg PRN Q1HR PRN IV For CIWA 15 or greater 04/08/20 23:30 04/09/20 00:52 Haloperidol Lactate (Haldol Inj) 5 mg PRN Q4HRS PRN IVP Hallucinatns,Confusn,Delirium 04/08/20 23:30 04/09/20 01:46 Clonidine HCl (Catapres) 0.1 mg PRN Q1HR PRN PO SBP > 180 OR DBP > 100, MRX3 04/08/20 23:30 04/09/20 00:15 Lorazepam (Ativan Inj) 2 mg PRN Q15MIN PRN IV SEE COMMENTS 04/08/20 23:30 04/08/20 23:48 Lorazepam (Ativan Inj) 4 mg PRN Q15MIN PRN IV SEE COMMENTS 04/08/20 23:30 04/09/20 02:34 Levetiracetam 500 mg/Dextrose 105 ml @ 420 mls/hr Q12HR IV 04/09/20 09:00 04/09/20 08:58 Ringer's Solution 1,000 ml @ 100 mls/hr Q10H IV 04/08/20 23:30 04/09/20 08:57 Labetalol HCl (Normodyne Iv Push) 10 mg PRN Q2HRS PRN IVP HYPERTENSION-1ST CHOICE 04/09/20 03:00 04/09/20 03:57 Dexmedetomidine HCl 400 mcg/ Sodium Chloride 100 ml @ 0 mls/hr CONT PRN IV PER PROTOCOL 04/09/20 03:00 04/09/20 09:15 Thiamine HCl (Thiamine Im) 100 mg DAILY IM 04/09/20 10:00 04/09/20 09:55 Hydralazine HCl (Apresoline Inj) 10 mg PRN Q4HRS PRN IVP ELEVATED BP, SEE COMMENTS 04/09/20 10:15 04/09/20 10:50 Ceftriaxone Sodium (Rocephin) 1 gm Q24H IVP 04/09/20 11:00 04/09/20 10:53 Clonidine HCl (Catapres Tts-1) 1 patch WEEKLY TD 04/09/20 11:00 04/09/20 10:57 ALLERGIES ALLERGIES: Coded Allergies: No Known Drug Allergies (Unverified , 04/08/20) ROS Review of System unreliable, sedated PHYSICAL EXAM General: Oriented X3, No acute distress HEENT: Atraumatic, Other (swollen tongue, nasal trumphet in place) Lungs: Other (diminished bases) Heart: Regular rate (SR), Normal S1, Normal S2, No murmurs Extremities: No cyanosis, No edema Skin: Other (tongue injury) Neuro: Sensation intact, Other (sedated) MUSCULOSKELETAL: No deformity VITALS/I&O VITALS/I&O: Vital Signs Date Time Temp Pulse Resp B/P (MAP) Pulse Ox O2 Delivery O2 Flow Rate FiO2 04/09/20 11:33 Room Air 04/09/20 11:00 82 16 146/95 (112) 94 04/09/20 08:00 98.1 98.1 I & O 04/08/20 04/08/20 04/09/20 15:00 23:00 07:00 Output Total 810 ml Balance -810 ml LABS Lab: Laboratory Tests Test 04/08/20 23:51 04/09/20 07:30 04/09/20 09:08 04/09/20 09:10 Sodium Level 134 mmol/L (136-145) L 138 mmol/L (136-145) Potassium Level 3.7 mmol/L (3.5-5.1) 3.4 mmol/L (3.5-5.1) L Chloride Level 98 mmol/L (98-107) 100 mmol/L (98-107) Carbon Dioxide Level 27 mmol/L (21-32) 25 mmol/L (21-32) Anion Gap 9 (6-14) 13 (6-14) Blood Urea Nitrogen 8 mg/dL (7-20) 7 mg/dL (7-20) Creatinine 0.7 mg/dL (0.6-1.0) 0.7 mg/dL (0.6-1.0) Estimated GFR (Cockcroft-Gault) 98.3 98.3 Glucose Level 81 mg/dL (70-99) 99 mg/dL (70-99) Calcium Level 8.8 mg/dL (8.5-10.1) 8.6 mg/dL (8.5-10.1) Magnesium Level 1.9 mg/dL (1.8-2.4) 1.8 mg/dL (1.8-2.4) White Blood Count 7.6 x10^3/uL (4.0-11.0) Red Blood Count 4.65 x10^6/uL (3.50-5.40) Hemoglobin 15.2 g/dL (12.0-15.5) Hematocrit 45.5 % (36.0-47.0) Mean Corpuscular Volume 98 fL (79-100) Mean Corpuscular Hemoglobin 33 pg (25-35) Mean Corpuscular Hemoglobin Concent 34 g/dL (31-37) Red Cell Distribution Width 13.4 % (11.5-14.5) Platelet Count 135 x10^3/uL (140-400) L Neutrophils (%) (Auto) 80 % (31-73) H Lymphocytes (%) (Auto) 10 % (24-48) L Monocytes (%) (Auto) 8 % (0-9) Eosinophils (%) (Auto) 0 % (0-3) Basophils (%) (Auto) 1 % (0-3) Neutrophils # (Auto) 6.1 x10^3/uL (1.8-7.7) Lymphocytes # (Auto) 0.8 x10^3/uL (1.0-4.8) L Monocytes # (Auto) 0.6 x10^3/uL (0.0-1.1) Eosinophils # (Auto) 0.0 x10^3/uL (0.0-0.7) Basophils # (Auto) 0.1 x10^3/uL (0.0-0.2) Fibrinogen 400 mg/dL (200-440) D-Dimer (Nica) 2.09 ug/mlFEU (0.00-0.50) H BUN/Creatinine Ratio 10 (6-20) Total Bilirubin 1.6 mg/dL (0.2-1.0) H Aspartate Amino Transferase (AST) 106 U/L (15-37) H Alanine Aminotransferase (ALT) 86 U/L (14-59) H Alkaline Phosphatase 69 U/L (46-116) Lactate Dehydrogenase 347 U/L (81-234) H C-Reactive Protein, Quantitative 0.8 mg/L (0-3.3) Total Protein 7.6 g/dL (6.4-8.2) Albumin 3.2 g/dL (3.4-5.0) L Albumin/Globulin Ratio 0.7 (1.0-1.7) L Thyroid Stimulating Hormone (TSH) 3.111 uIU/mL (0.358-3.74) Ethyl Alcohol Level < 10 mg/dL (0-10) O2 Saturation 95 % (92-99) Arterial Blood pH 7.43 (7.35-7.45) Arterial Blood pCO2 at Patient Temp 31 mmHg (35-46) L Arterial Blood pO2 at Patient Temp 70 mmHg (85-108) L Arterial Blood HCO3 20 mmol/L (21-28) L Arterial Blood Base Excess -3 mmol/L (-3-3) FiO2 21/ra SARS-CoV-2 Antigen (Rapid) Negative (NEGATIVE) Test 04/09/20 09:20 04/09/20 11:43 Urine Collection Type Unknown Urine Color Yellow Urine Clarity Clear Urine pH 7.0 (<5.0-8.0) Urine Specific [place] 1.010 (1.000-1.030) Urine Protein 100 mg/dL (NEG-TRACE) Urine Glucose (UA) Negative mg/dL (NEG) Urine Ketones (Stick) 15 mg/dL (NEG) Urine Blood Large (NEG) Urine Nitrite Negative (NEG) Urine Bilirubin Negative (NEG) Urine Urobilinogen Dipstick 1.0 mg/dL (0.2 mg/dL) Urine Leukocyte Esterase Trace (NEG) Urine RBC 3-5 /HPF (0-2) Urine WBC 5-10 /HPF (0-4) Urine Bacteria Few /HPF (0-FEW) Urine Opiates Screen Neg (NEG) Urine Methadone Screen Neg (NEG) Urine Barbiturates Neg (NEG) Urine Phencyclidine Screen Neg (NEG) Urine Amphetamine/Methamphetamine Neg (NEG) Urine Benzodiazepines Screen Neg (NEG) Urine Cocaine Screen Neg (NEG) Urine Cannabinoids Screen Neg (NEG) Urine Ethyl Alcohol Neg (NEG) Glucose (Fingerstick) 105 mg/dL (70-99) H Laboratory Tests 04/09/20 07:30 Laboratory Tests 04/08/20 23:51 04/09/20 07:30 ASSESSMENT/PLAN ASSESSMENT/PLAN 1. New onset seizure with tongue injury and possible fall. Neurology following 2. ?Binge alcoholism with suspected withdrawal 3. Hypomagnesemia: corrected 4. Lactic acidosis 5. Hx of cocaine use: unclear last use 6. HTN urgency: possibly from withdrawal although EKG noted with LVH Recommendations 1. Currently on precedex, treat with PRN benzo per CIWA protocol 2. Currently NPO. Start on clonidine TTS-1, Hydralazine IV PRN 3. Will obtain TTE prior to DC. 4. IVF will add K 5. Supportive care CHANA REDDY MD 04/09/20 1682: CARDIAC CONSULT ASSESSMENT/PLAN ASSESSMENT/PLAN Patient seen and evaluated. I agree with our nurse practitioners assessment and plan. New onset seizure with tongue injury and possible fall. Neurology following Alcoholism with suspected withdrawal. Withdrawal protocol. Hypomagnesemia: corrected Hx of cocaine use HTN urgency: possibly from withdrawal although EKG noted with LVH. Continuing present medications as noted above. IV fluids. Echocardiogram. JOI FRANCOIS APRN Apr 09, 2020 12:12 CHANA REDDY MD Apr 09, 2020 17:56
[2020-04-09] MEDS: methylPREDNISolone SOD SUCC PF 125 MG/2 ML VIAL. IV SCH ×2 (13:10→21:58)
[2020-04-09] MEDS: CEFEPIME HCL IV Push 2 GM VIAL. IVP SCH ×2 (13:13→22:01)
[2020-04-09] MEDS: HEPARIN for SUB-Q USE 5,000 UNIT/ML VIAL. SQ SCH ×2 (13:19→22:01)
--- NOTE | 2020-04-09 13:33 | HP ---
ADMIT DATE: 04/08/2020 REASON FOR ADMISSION: Altered mental status, alcohol withdrawal, possible aspiration, apparent seizure. HISTORY OF PRESENT ILLNESS: This 29-year-old female was brought to the ER in [place] with seizure activity. She apparently had been visiting a friend from [place] for a and consumed a lot of alcohol 4 days prior to admission. Her last drink was 04/07/2020. Yesterday, she complained of fever and chills and was found by the friend on the apartment floor with abnormal activity, which appeared to be due to seizures. The patient declined transfer initially and then had another seizure. She was confused in the Emergency Room and thought that she was in [place]. There was tongue swelling however. The patient had a [place] coma scale of 7. Intubation was considered, though instead a nasal trumpet was inserted. She was started on IV Keppra and a Precedex drip. She has had no further seizures. Apparently, family states that she has a history of binge alcohol consumption. PAST MEDICAL HISTORY: Significant for alcohol abuse. Other than that, no other past history is available. The patient is sedated and unable to give an adequate history. There are no family members present. She is hypertensive. FAMILY HISTORY: Positive for hypertension. SOCIAL HISTORY: High alcohol consumption. Occasional tobacco use. Occasional cocaine abuse. REVIEW OF SYSTEMS: The patient is unable to provide history due to sedation, altered mental status. PHYSICAL EXAMINATION: VITAL SIGNS: Blood pressure is 146/109, temperature 98.8, O2 sat 95%. GENERAL: She is in no acute distress. NECK: Supple. HEENT: Tongue is swollen. LUNGS: Clear. NEUROLOGIC: Minimal response to pain. Gaze is disconjugate. There is no facial drooping. Reflexes are 2+ and symmetric. She has slight withdrawal to pain. Normal muscular tone and bulk. She is unable to provide gait testing, not cooperative with sensory and motor exam. ABDOMEN: Soft without tenderness. EXTREMITIES: Without edema. MRI of the head is currently pending. LABORATORY DATA: Sodium 134, potassium 3.7, BUN 8, creatinine 0.7, glucose 81, calcium 8.8, magnesium 1.9. White count 7.6, hemoglobin 15, MCV 98. Differential: 88% segs, 10% lymphocytes. Alcohol level is less than 10. Anion gap is 18. Repeat glucose is 154. Troponin less than 0.17. Lipase 235. Salicylate is less than 3.8. Ammonia level is 22. Lactic acid 9.3. UA, greater than 100 mg/dL protein. Moderate blood on UA. Leukocyte esterase is negative. Hyaline casts, occasional. Negative screen for THC, cocaine, PCP. Repeat blood pressure 142/107. CT head shows no fracture of the cervical spine. Ventricular system is within normal limits without compression or hydrocephalus. No vascular territory infarction is seen. No hemorrhage is identified. CTA of the neck shows negative C-spine for acute trauma. There is patent intracranial and cervical arterial vasculature without stenosis, occlusion or aneurysm. ASSESSMENT: 1. New-onset seizures. 2. History of polysubstance abuse. 3. History of psychiatric disease associated with stress. 4. ____ fever and chills, rule out sepsis. 5. Disconjugate gaze. 6. Lactic acidosis, which could be from alcohol withdrawal. 7. Possible aspiration. 8. Binge drinking. Plan: Continue IV Keppra, Precedex, thiamine. Stat MRI of the brain. Discussed the patient's initial care with Dr. Ward. We will plan to consult ID as well as Dr. Fitzpatrick, education coordinator. Blood cultures and urine culture. Initial series rapid test is negative. We will await PCR. She is currently PUI. Prognosis is guarded with her disconjugate gaze. Initially, she received Rocephin. We will add vancomycin pending ID consult. Sepsis bundle. BRISA GARRETT MD DR: TULIO/len JOB#: [id number] / [id number]
--- NOTE | 2020-04-09 13:39 | CONS ---
DATE OF CONSULTATION: 04/09/2020 INFECTIOUS DISEASE CONSULTATION REFERRING PHYSICIAN: Dr. Ramirez. REASON FOR CONSULTATION: Possible sepsis and aspiration. HISTORY OF PRESENT ILLNESS: This patient is a 29-year-old female who is encephalopathic, unable to provide history of present illness, past medical history or review of systems. According to the medical record, she has a history of alcoholism and drug abuse, who presented to [facility] after she was found down seizing. She was started on Keppra. She is in town from [place] for a . Apparently, she complained of having subjective fevers and chills earlier to her friend. In the Emergency Department, she was afebrile with a normal white blood cell count and a lactic acid of 9.3. Urine toxicology was negative. CT head, C-spine, and chest x-ray were negative. She was started on vancomycin and ceftriaxone. She was transferred to [place] for further evaluation and management. PAST MEDICAL HISTORY: Hypertension, bulimia, depression, anxiety, alcoholism, drug abuse, tobaccoism. REVIEW OF SYSTEMS: Unable to obtain as the patient is encephalopathic. FAMILY HISTORY: Hypertension, coronary artery disease. SOCIAL HISTORY: The patient lives at [place]. History of heavy alcohol and cocaine. ALLERGIES: No known drug allergies. MEDICATIONS: Vancomycin, ceftriaxone, Keppra. Other medications are available and have been reviewed on the MAR. REVIEW OF SYSTEMS: Unobtainable as the patient is encephalopathic. PHYSICAL EXAMINATION: VITAL SIGNS: Temperature 98.1, blood pressure 146/95, heart rate 82, respiratory rate 16, pulse oximetry 94% on room air. GENERAL: The patient is in bed, lethargic, fidgety with mittens on.. HEENT: Pupils equally round. Oral cavity is pink, swollen tongue. NECK: Supple. No nuchal rigidity. LUNGS: Mild congestion. No accessory muscle use. HEART: Normal S1 and S2 regular. ABDOMEN: Not distended, soft. No guarding. Bowel sounds present. EXTREMITIES: No gross edema or cyanosis. DERMATOLOGIC: Warm to touch. No signs of generalized rash. She has some acne on her face. Multiple tattoos. NEUROLOGIC: Very lethargic, does not respond to questions or follow commands and fidgety. LINES: Peripheral IV looks okay. LABORATORY DATA: Today's WBC 7.6, hemoglobin 15.2, platelets 135,000. Sodium 138, potassium 3.4, creatinine 0.7 with BUN at 7, glucose 99, lactic acid 0.9, total bilirubin 1.6, AST 106, ALT 86, LDH 347. Albumin 3.2. TSH 3.111. Procalcitonin 0.19. Urine toxicology negative. Urinalysis is positive for few WBC, trace leukocyte esterase, large blood, a few bacteria. Urine and blood cultures pending. COVID-19 negative. IMAGING: Per HPI. IMPRESSION: 1. Encephalopathy, postictal. 2. New-onset seizure. 3. Aspiration suspected. 4. Lactic acidosis. 5. Transaminitis. 6. Hypertension. 7. History of alcohol and drug abuse. PLAN: 1. MRI has been ordered. 2. Recommend switching ceftriaxone to cefepime and add acyclovir. 3. Continue the vancomycin per pharmacy protocol and monitor renal functions closely. 4. Continue vancomycin per pharmacy protocol. 5. Monitor renal function closely. 6. Maintain aspiration precautions. 7. Follow up culture results. 8. Supportive care. 9. Discussed with nursing. 10. Critically ill. Thank you, Dr. Ramirez, for asking us to participate in this patient's care. Should you have further questions or concerns, please call. The patient is seen and examined and plan of care implemented by Dr. Valentina Galeano. Pt seen and examined . D/W [employer]. Coformulated A/P with [employer]> VALENTINA GALEANO MD DR: MICHAEL/len JOB#: [id number] / [id number] TRENT
[2020-04-09] MEDS: ACYCLOVIR SODIUM IV SCH ×2 (14:20→22:00)
[2020-04-09] MEDS: DEXTROSE 5% IV SCH ×2 (14:20→22:00)
--- NOTE | 2020-04-09 15:34 | RAD ---
Portable chest x-ray without comparison for possible aspiration. FINDINGS: The lungs are clear. Cardiac mediastinum is unremarkable. No significant soft tissue or oss eous abnormalities are identified. IMPRESSION: 1. No acute cardiopulmonary abnormality. Electronically signed by: Steffen Mccurdy MD (04/09/2020 3:32 PM) [id number]
--- NOTE | 2020-04-09 16:12 | NUR ---
SS following for discharge planning. SS reviewed pt chart and discussed with pt RN. Pt is from home and is currently on room air. COVID19 negative. Pt has ETOH and alcohol withdrawal. Pt had seizure and bit her tongue causing severe swelling. Pt has Mitts. Pt on IV Acyclovir, IV Vancomycin, and IV Cefepime. Pt will need PAT team referral when medically appropriate. SS will continue to follow for discharge planning.
[2020-04-09] MEDS ORDERED: ACETAMINOPHEN 650 MG SUPP.RECT. PR PRN (19:30)
[2020-04-09] MEDS: VANCOMYCIN 1 GM in IV NORMAL SALINE 250ML 250 ML IV SCH (19:47)
[2020-04-09] MEDS: DOCUSATE SODIUM 100 MG CAPSULE. PO SCH (20:41)
[2020-04-09] MEDS: FAMOTIDINE 20 MG/2 ML VIAL IVP SCH (20:51)
--- NOTE | 2020-04-09 21:00 | CONS ---
DATE OF CONSULTATION: 04/09/2020 ATTENDING PHYSICIAN: Dr. Ramirez. REASON FOR CONSULTATION: The patient is seen in pulmonary consultation at the request of Dr. Ramirez for respiratory distress. HISTORY OF PRESENT ILLNESS: The patient is a 29-year-old brought from [facility] with seizure activity. She was visiting a friend from [place]. Apparently, she had some intake of alcohol on the , and . She also utilized some cocaine. She was complaining of fever, later she was found on the floor by a friend with abnormal movement. EMS was summoned. Initially, the patient declined transfer, but shortly thereafter she had another seizure. EMS returned and transferred to the Emergency Room. The patient had a postictal state and was confused. In the Emergency Department, she had another seizure, bit her tongue. The tongue currently is swollen. The patient does have some respiratory distress. As a consequence, I was asked to see her in consultation. She is currently not requiring any oxygen supplementation. She is on Precedex drip. She has been receiving some IV Keppra. She has a nasal trumpet. Respiratory status appears to be compensated at this time. She has been seen in consultation by Neurology, who recommended MRI. Continue levetiracetam and continue Precedex. She has been seen by Infectious Disease Service. She is currently on some antibiotics. She is on vancomycin and ceftriaxone. REVIEW OF SYSTEMS: Unobtainable secondary to the patient's condition. PAST MEDICAL HISTORY: Otherwise remarkable for anxiety, addiction, depression and bulimia. PAST SURGICAL HISTORY: No major surgeries recently. FAMILY HISTORY: Coronary artery disease and hypertension. SOCIAL HISTORY: She has a history of tobacco use and drug use. CURRENT MEDICATIONS: List was reviewed. PHYSICAL EXAMINATION: GENERAL: The patient did not appear to be in any respiratory distress. VITAL SIGNS: Stable. She is currently sedated with Precedex. She is on oxygen supplementation. Her tongue is swollen. LUNGS: Anteriorly scattered rhonchi. CARDIOVASCULAR: Regular rate and rhythm with S1 and S2, no S3. ABDOMEN: Soft, nontender and nondistended. EXTREMITIES: No clubbing or cyanosis. Minimal edema. NEUROLOGIC: The patient was sedated with Precedex. LABORATORY DATA: SARS-CoV-2 rapid test was negative. Toxicology screen was negative. UA was noted. Electrolytes: Potassium is low. AST and ALT are elevated. Albumin is low. Coags revealed an elevated D-dimer. White count was 7.6. Arterial blood gas; pH of 7.43, PaCO2 of 31 and PaO2 of 70 on room air. Chest x-ray was reviewed, clear. IMPRESSION: 1. Respiratory distress secondary to recent seizure, combination with swollen tongue, patient bit her tongue. She is currently not having any significant respiratory distress requiring intubation, no any additional measures. 2. Seizures. 3. History of polysubstance use. 4. Lactic acidosis secondary to seizures. 5. Fever, source of fever unclear. PLAN: 1. We will continue current support with empiric antibiotics, the patient has been seen by Infectious Disease Service. 2. MRI brain is pending. 3. Continue Precedex. 4. Anti-seizure medication per Neurology. I do appreciate the privilege in sharing in this patient's care. Total cumulative critical care time from 11:10 to 11:50. TONNY PYLE MD DR: LISA/len JOB#: [id number] / [id number]
[2020-04-09] MEDS: fentaNYL PF VIAL 100 MCG/2 ML VIAL IVP PRN (22:43)
[2020-04-09] MEDS ORDERED: IV RINGERS,LACTATED 1000ML 1,000 ML IV SCH (23:00)
[2020-04-10] VITALS (24 sets, daily range): BP systolic 107–185; BP diastolic 68–120
[2020-04-10] MEDS: VANCOMYCIN 1 GM in IV NORMAL SALINE 250ML 250 ML IV SCH (04:57)
[2020-04-10] MEDS: fentaNYL PF VIAL 100 MCG/2 ML VIAL IVP PRN (04:58)
--- NOTE | 2020-04-10 05:22 | RAD ---
Study: XR CHEST 1V Indication: Pneumonia. Comparison: 04/09/2020 Findings: Faint progression of hazy attenuation at the infrahilar right lung and basilar left lung. The costoph renic angles are able to be delineated. No pneumothorax. Unchanged cardiomediastinal silhouette and h sourav. Impression: Faintly more pronounced haziness at the infrahilar right lung and basilar left lung. This could be in part technical though atelectasis or evolving infiltrates are possible as well. Electronically signed by: ALEJANDRO ALMARAZ MD (04/10/2020 5:20 AM) [facility]
[2020-04-10 05:27] LABS: BASO % 0 % (0-3); EOS % 0 % (0-3); HEMOGLOBIN 15.3 g/dL (12.0-15.5); LYMPH # 0.3 x10^3/uL (1.0-4.8); LYMPH % 8 % (24-48); MEAN CORPUSCULAR HEMOGLOBIN 34 pg (25-35); MEAN CORPUSCULAR HGB CONC 34 g/dL (31-37); MEAN CORPUSCULAR VOLUME 99 fL (79-100); MONO # 0.1 x10^3/uL (0.0-1.1); MONO % 2 % (0-9); NEUT # 4.2 x10^3/uL (1.8-7.7); NEUT % 91 % (31-73); PLATELET COUNT 126 x10^3/uL (140-400); RED BLOOD COUNT 4.57 x10^6/uL (3.50-5.40); RED CELL DISTRIBUTION WIDTH 13.5 % (11.5-14.5); WHITE BLOOD COUNT 4.6 x10^3/uL (4.0-11.0)
[2020-04-10 05:37] LABS: PROTHROMBIN TIME PATIENT 12.6 SEC (11.7-14.0)
[2020-04-10 05:59] LABS: ALBUMIN/GLOBULIN RATIO 0.7 (1.0-1.7); CALCIUM 8.4 mg/dL (8.5-10.1); CREATININE 0.7 mg/dL (0.6-1.0); GFR 98.3; POTASSIUM 4.1 mmol/L (3.5-5.1); TOTAL BILIRUBIN 0.9 mg/dL (0.2-1.0); TOTAL PROTEIN 7.4 g/dL (6.4-8.2)
[2020-04-10] MEDS: methylPREDNISolone SOD SUCC PF 125 MG/2 ML VIAL. IV SCH ×3 (06:35→21:12)
[2020-04-10] MEDS: HEPARIN for SUB-Q USE 5,000 UNIT/ML VIAL. SQ SCH ×3 (06:36→21:14)
[2020-04-10] MEDS: CEFEPIME HCL IV Push 2 GM VIAL. IVP SCH ×3 (06:39→21:05)
[2020-04-10] MEDS: DEXTROSE 5% IV SCH (06:44)
[2020-04-10] MEDS: ACYCLOVIR SODIUM IV SCH (06:44)
[2020-04-10] MEDS: POTASSIUM CHLORIDE 20 MEQ TABLET.ER. PO SCH (07:51)
[2020-04-10] MEDS: DOCUSATE SODIUM 100 MG CAPSULE. PO SCH ×2 (07:51→19:47)
[2020-04-10] MEDS: FAMOTIDINE 20 MG/2 ML VIAL IVP SCH ×2 (08:19→21:12)
[2020-04-10] MEDS: levETIRAcetam 500 MG in IV DEXTROSE 5% 100ML 100 ML IV SCH ×2 (08:19→21:06)
[2020-04-10] MEDS: THIAMINE IM 200 MG/2 ML VIAL. IM SCH (08:19)
[2020-04-10] MEDS: DEXMEDETOMIDINE 400 MCG in IV NORMAL SALINE 100ML 96 ML IV PRN ×3 (08:25→19:40)
--- NOTE | 2020-04-10 08:36 | PDOC ---
PROGRESS NOTES Date of Service: DATE: 04/10/20 TIME: 08:[address] head shows no fracture of the cervical spine. Ventricular system is within normal limits without compression or hydrocephalus. No vascular territory infarction is seen. No hemorrhage is identified. CTA of the neck shows negative C-spine for acute trauma. There is patent intracranial and cervical arterial vasculature without stenosis, occlusion or aneurysm. ASSESSMENT: 1. New-onset seizures. 2. History of polysubstance abuse. 3. History of psychiatric disease associated with stress. 4. fever and chills, rule out sepsis. 5. Disconjugate gaze. possible cva 6. Lactic acidosis, which could be from alcohol withdrawal. 7. Possible aspiration. 8. Binge drinking.by hx Plan: Continue IV Keppra, Precedex, thiamine. MRI of the brain. Discussed the patient's initial care with Dr. Ward. plan icu bed consult ID consult Dr. Fitzpatrick, senior regulatory affairs specialist. Blood cultures and urine culture. Initial covid rapid test is negative. await PCR. currently PUI. Prognosis is guarded with her disconjugate gaze. received Rocephin. , start iv cefipime, acyclovir add vancomycin pending ID consult. Sepsis bundle. 04/10 nasal trumpet out, more alert, but encephalopathic Continue cefepime DC IV Vanco and acyclovir 34 min cc time CLAUDINE BERG MD,TONNY CHAN,KRISHNA STODDARD ORDERED: BCULT Procedure Result BLOOD CULTURE Preliminary NO GROWTH AFTER 1 DAY History of Present Illness History of Present Illness HISTORY OF PRESENT ILLNESS: This 29-year-old female was brought to the ER in [place] with seizure activity. She apparently had been visiting a friend from [place] for a and consumed a lot of alcohol 4 days prior to admission. Her last drink was 04/07/2020. Yesterday, she complained of fever and chills and was found by the friend on the apartment floor with abnormal activity, which appeared to be due to seizures. The patient declined transfer initially and then had another seizure. She was confused in the Emergency Room and thought that she was in [place]. There was tongue swelling however. The patient had a Yg coma scale of 7. Intubation was considered, though instead a nasal trumpet was inserted. She was started on IV Keppra and a Precedex drip. She has had no further seizures. Apparently, family states that she has a history of binge alcohol consumption. PAST MEDICAL HISTORY: Significant for alcohol abuse. Other than that, no other past history is available. The patient is sedated and unable to give an adequate history. There are no family members present. She is hypertensive. FAMILY HISTORY: Positive for hypertension. SOCIAL HISTORY: High alcohol consumption. Occasional tobacco use. Occasional cocaine abuse. REVIEW OF SYSTEMS: The patient is unable to provide history due to sedation, altered mental status. Vitals Vitals Vital Signs Date Time Temp Pulse Resp B/P (MAP) Pulse Ox O2 Delivery O2 Flow Rate FiO2 04/10/20 08:02 98.7 84 20 152/98 (116) 97 Venturi Mask 98.7 04/10/20 04:58 6.0 Physical Exam General: Alert, Cooperative, No acute distress Heart: Regular rate (SR), Normal S1, Normal S2, No murmurs Abdomen: Normal bowel sounds, Soft Extremities: No clubbing, No cyanosis, No edema Skin: Other (tongue injury) Labs LABS CLAUDINE BERG MD,TONNY CHAN,KRISHNA STODDARD ORDERED: BCULT Procedure Result BLOOD CULTURE Preliminary NO GROWTH AFTER 1 DAY Laboratory Tests Test 04/09/20 09:08 04/09/20 09:10 04/09/20 09:20 04/09/20 11:29 O2 Saturation 95 % (92-99) Arterial Blood pH 7.43 (7.35-7.45) Arterial Blood pCO2 at Patient Temp 31 mmHg (35-46) Arterial Blood pO2 at Patient Temp 70 mmHg (85-108) Arterial Blood HCO3 20 mmol/L (21-28) Arterial Blood Base Excess -3 mmol/L (-3-3) FiO2 21/ra SARS-CoV-2 Antigen (Rapid) Negative (NEGATIVE) Urine Collection Type Unknown Urine Color Yellow Urine Clarity Clear Urine pH 7.0 (<5.0-8.0) Urine Specific [place] 1.010 (1.000-1.030) Urine Protein 100 mg/dL (NEG-TRACE) Urine Glucose (UA) Negative mg/dL (NEG) Urine Ketones (Stick) 15 mg/dL (NEG) Urine Blood Large (NEG) Urine Nitrite Negative (NEG) Urine Bilirubin Negative (NEG) Urine Urobilinogen Dipstick 1.0 mg/dL (0.2 mg/dL) Urine Leukocyte Esterase Trace (NEG) Urine RBC 3-5 /HPF (0-2) Urine WBC 5-10 /HPF (0-4) Urine Bacteria Few /HPF (0-FEW) Urine Opiates Screen Neg (NEG) Urine Methadone Screen Neg (NEG) Urine Barbiturates Neg (NEG) Urine Phencyclidine Screen Neg (NEG) Urine Amphetamine/Methamphetamine Neg (NEG) Urine Benzodiazepines Screen Neg (NEG) Urine Cocaine Screen Neg (NEG) Urine Cannabinoids Screen Neg (NEG) Urine Ethyl Alcohol Neg (NEG) Lactic Acid Level 0.9 mmol/L (0.4-2.0) Test 04/09/20 11:43 04/09/20 15:53 04/10/20 04:30 Glucose (Fingerstick) 105 mg/dL (70-99) 150 mg/dL (70-99) White Blood Count 4.6 x10^3/uL (4.0-11.0) Red Blood Count 4.57 x10^6/uL (3.50-5.40) Hemoglobin 15.3 g/dL (12.0-15.5) Hematocrit 45.0 % (36.0-47.0) Mean Corpuscular Volume 99 fL (79-100) Mean Corpuscular Hemoglobin 34 pg (25-35) Mean Corpuscular Hemoglobin Concent 34 g/dL (31-37) Red Cell Distribution Width 13.5 % (11.5-14.5) Platelet Count 126 x10^3/uL (140-400) Neutrophils (%) (Auto) 91 % (31-73) Lymphocytes (%) (Auto) 8 % (24-48) Monocytes (%) (Auto) 2 % (0-9) Eosinophils (%) (Auto) 0 % (0-3) Basophils (%) (Auto) 0 % (0-3) Neutrophils # (Auto) 4.2 x10^3/uL (1.8-7.7) Lymphocytes # (Auto) 0.3 x10^3/uL (1.0-4.8) Monocytes # (Auto) 0.1 x10^3/uL (0.0-1.1) Eosinophils # (Auto) 0.0 x10^3/uL (0.0-0.7) Basophils # (Auto) 0.0 x10^3/uL (0.0-0.2) Prothrombin Time 12.6 SEC (11.7-14.0) Prothromb Time International Ratio 1.0 (0.8-1.1) Activated Partial Thromboplast Time 27 SEC (24-38) Sodium Level 137 mmol/L (136-145) Potassium Level 4.1 mmol/L (3.5-5.1) Chloride Level 102 mmol/L (98-107) Carbon Dioxide Level 19 mmol/L (21-32) Anion Gap 16 (6-14) Blood Urea Nitrogen 13 mg/dL (7-20) Creatinine 0.7 mg/dL (0.6-1.0) Estimated GFR (Cockcroft-Gault) 98.3 BUN/Creatinine Ratio 19 (6-20) Glucose Level 152 mg/dL (70-99) Calcium Level 8.4 mg/dL (8.5-10.1) Total Bilirubin 0.9 mg/dL (0.2-1.0) Aspartate Amino Transf (AST/SGOT) 55 U/L (15-37) Alanine Aminotransferase (ALT/SGPT) 61 U/L (14-59) Alkaline Phosphatase 61 U/L (46-116) Total Protein 7.4 g/dL (6.4-8.2) Albumin 3.0 g/dL (3.4-5.0) Albumin/Globulin Ratio 0.7 (1.0-1.7) Comment Review of Relevant I have reviewed the following items celsa (where applicable) has been applied. Labs Laboratory Tests Test 04/08/20 23:51 04/09/20 07:30 04/09/20 09:08 04/09/20 09:10 Sodium Level 134 mmol/L (136-145) 138 mmol/L (136-145) Potassium Level 3.7 mmol/L (3.5-5.1) 3.4 mmol/L (3.5-5.1) Chloride Level 98 mmol/L (98-107) 100 mmol/L (98-107) Carbon Dioxide Level 27 mmol/L (21-32) 25 mmol/L (21-32) Anion Gap 9 (6-14) 13 (6-14) Blood Urea Nitrogen 8 mg/dL (7-20) 7 mg/dL (7-20) Creatinine 0.7 mg/dL (0.6-1.0) 0.7 mg/dL (0.6-1.0) Estimated GFR (Cockcroft-Gault) 98.3 98.3 Glucose Level 81 mg/dL (70-99) 99 mg/dL (70-99) Calcium Level 8.8 mg/dL (8.5-10.1) 8.6 mg/dL (8.5-10.1) Magnesium Level 1.9 mg/dL (1.8-2.4) 1.8 mg/dL (1.8-2.4) White Blood Count 7.6 x10^3/uL (4.0-11.0) Red Blood Count 4.65 x10^6/uL (3.50-5.40) Hemoglobin 15.2 g/dL (12.0-15.5) Hematocrit 45.5 % (36.0-47.0) Mean Corpuscular Volume 98 fL (79-100) Mean Corpuscular Hemoglobin 33 pg (25-35) Mean Corpuscular Hemoglobin Concent 34 g/dL (31-37) Red Cell Distribution Width 13.4 % (11.5-14.5) Platelet Count 135 x10^3/uL (140-400) Neutrophils (%) (Auto) 80 % (31-73) Lymphocytes (%) (Auto) 10 % (24-48) Monocytes (%) (Auto) 8 % (0-9) Eosinophils (%) (Auto) 0 % (0-3) Basophils (%) (Auto) 1 % (0-3) Neutrophils # (Auto) 6.1 x10^3/uL (1.8-7.7) Lymphocytes # (Auto) 0.8 x10^3/uL (1.0-4.8) Monocytes # (Auto) 0.6 x10^3/uL (0.0-1.1) Eosinophils # (Auto) 0.0 x10^3/uL (0.0-0.7) Basophils # (Auto) 0.1 x10^3/uL (0.0-0.2) Fibrinogen 400 mg/dL (200-440) D-Dimer (Nica) 2.09 ug/mlFEU (0.00-0.50) BUN/Creatinine Ratio 10 (6-20) Total Bilirubin 1.6 mg/dL (0.2-1.0) Aspartate Amino Transf (AST/SGOT) 106 U/L (15-37) Alanine Aminotransferase (ALT/SGPT) 86 U/L (14-59) Alkaline Phosphatase 69 U/L (46-116) Lactate Dehydrogenase 347 U/L (81-234) C-Reactive Protein, Quantitative 0.8 mg/L (0-3.3) Total Protein 7.6 g/dL (6.4-8.2) Albumin 3.2 g/dL (3.4-5.0) Albumin/Globulin Ratio 0.7 (1.0-1.7) Procalcitonin 0.19 ng/mL (0.00-0.10) Thyroid Stimulating Hormone (TSH) 3.111 uIU/mL (0.358-3.74) Ethyl Alcohol Level < 10 mg/dL (0-10) O2 Saturation 95 % (92-99) Arterial Blood pH 7.43 (7.35-7.45) Arterial Blood pCO2 at Patient Temp 31 mmHg (35-46) Arterial Blood pO2 at Patient Temp 70 mmHg (85-108) Arterial Blood HCO3 20 mmol/L (21-28) Arterial Blood Base Excess -3 mmol/L (-3-3) FiO2 21/ SARS-CoV-2 Antigen (Rapid) Negative (NEGATIVE) Test 04/09/20 09:20 04/09/20 11:29 04/09/20 11:43 04/09/20 15:53 Urine Collection Type Unknown Urine Color Yellow Urine Clarity Clear Urine pH 7.0 (<5.0-8.0) Urine Specific [place] 1.010 (1.000-1.030) Urine Protein 100 mg/dL (NEG-TRACE) Urine Glucose (UA) Negative mg/dL (NEG) Urine Ketones (Stick) 15 mg/dL (NEG) Urine Blood Large (NEG) Urine Nitrite Negative (NEG) Urine Bilirubin Negative (NEG) Urine Urobilinogen Dipstick 1.0 mg/dL (0.2 mg/dL) Urine Leukocyte Esterase Trace (NEG) Urine RBC 3-5 /HPF (0-2) Urine WBC 5-10 /HPF (0-4) Urine Bacteria Few /HPF (0-FEW) Urine Opiates Screen Neg (NEG) Urine Methadone Screen Neg (NEG) Urine Barbiturates Neg (NEG) Urine Phencyclidine Screen Neg (NEG) Urine Amphetamine/Methamphetamine Neg (NEG) Urine Benzodiazepines Screen Neg (NEG) Urine Cocaine Screen Neg (NEG) Urine Cannabinoids Screen Neg (NEG) Urine Ethyl Alcohol Neg (NEG) Lactic Acid Level 0.9 mmol/L (0.4-2.0) Glucose (Fingerstick) 105 mg/dL (70-99) 150 mg/dL (70-99) Test 04/10/20 04:30 White Blood Count 4.6 x10^3/uL (4.0-11.0) Red Blood Count 4.57 x10^6/uL (3.50-5.40) Hemoglobin 15.3 g/dL (12.0-15.5) Hematocrit 45.0 % (36.0-47.0) Mean Corpuscular Volume 99 fL (79-100) Mean Corpuscular Hemoglobin 34 pg (25-35) Mean Corpuscular Hemoglobin Concent 34 g/dL (31-37) Red Cell Distribution Width 13.5 % (11.5-14.5) Platelet Count 126 x10^3/uL (140-400) Neutrophils (%) (Auto) 91 % (31-73) Lymphocytes (%) (Auto) 8 % (24-48) Monocytes (%) (Auto) 2 % (0-9) Eosinophils (%) (Auto) 0 % (0-3) Basophils (%) (Auto) 0 % (0-3) Neutrophils # (Auto) 4.2 x10^3/uL (1.8-7.7) Lymphocytes # (Auto) 0.3 x10^3/uL (1.0-4.8) Monocytes # (Auto) 0.1 x10^3/uL (0.0-1.1) Eosinophils # (Auto) 0.0 x10^3/uL (0.0-0.7) Basophils # (Auto) 0.0 x10^3/uL (0.0-0.2) Prothrombin Time 12.6 SEC (11.7-14.0) Prothromb Time International Ratio 1.0 (0.8-1.1) Activated Partial Thromboplast Time 27 SEC (24-38) Sodium Level 137 mmol/L (136-145) Potassium Level 4.1 mmol/L (3.5-5.1) Chloride Level 102 mmol/L (98-107) Carbon Dioxide Level 19 mmol/L (21-32) Anion Gap 16 (6-14) Blood Urea Nitrogen 13 mg/dL (7-20) Creatinine 0.7 mg/dL (0.6-1.0) Estimated GFR (Cockcroft-Gault) 98.3 BUN/Creatinine Ratio 19 (6-20) Glucose Level 152 mg/dL (70-99) Calcium Level 8.4 mg/dL (8.5-10.1) Total Bilirubin 0.9 mg/dL (0.2-1.0) Aspartate Amino Transf (AST/SGOT) 55 U/L (15-37) Alanine Aminotransferase (ALT/SGPT) 61 U/L (14-59) Alkaline Phosphatase 61 U/L (46-116) Total Protein 7.4 g/dL (6.4-8.2) Albumin 3.0 g/dL (3.4-5.0) Albumin/Globulin Ratio 0.7 (1.0-1.7) Laboratory Tests Test 04/09/20 09:08 04/09/20 09:10 04/09/20 09:20 04/09/20 11:29 O2 Saturation 95 % (92-99) Arterial Blood pH 7.43 (7.35-7.45) Arterial Blood pCO2 at Patient Temp 31 mmHg (35-46) Arterial Blood pO2 at Patient Temp 70 mmHg (85-108) Arterial Blood HCO3 20 mmol/L (21-28) Arterial Blood Base Excess -3 mmol/L (-3-3) FiO2 21/ SARS-CoV-2 Antigen (Rapid) Negative (NEGATIVE) Urine Collection Type Unknown Urine Color Yellow Urine Clarity Clear Urine pH 7.0 (<5.0-8.0) Urine Specific [place] 1.010 (1.000-1.030) Urine Protein 100 mg/dL (NEG-TRACE) Urine Glucose (UA) Negative mg/dL (NEG) Urine Ketones (Stick) 15 mg/dL (NEG) Urine Blood Large (NEG) Urine Nitrite Negative (NEG) Urine Bilirubin Negative (NEG) Urine Urobilinogen Dipstick 1.0 mg/dL (0.2 mg/dL) Urine Leukocyte Esterase Trace (NEG) Urine RBC 3-5 /HPF (0-2) Urine WBC 5-10 /HPF (0-4) Urine Bacteria Few /HPF (0-FEW) Urine Opiates Screen Neg (NEG) Urine Methadone Screen Neg (NEG) Urine Barbiturates Neg (NEG) Urine Phencyclidine Screen Neg (NEG) Urine Amphetamine/Methamphetamine Neg (NEG) Urine Benzodiazepines Screen Neg (NEG) Urine Cocaine Screen Neg (NEG) Urine Cannabinoids Screen Neg (NEG) Urine Ethyl Alcohol Neg (NEG) Lactic Acid Level 0.9 mmol/L (0.4-2.0) Test 04/09/20 11:43 04/09/20 15:53 04/10/20 04:30 Glucose (Fingerstick) 105 mg/dL (70-99) 150 mg/dL (70-99) White Blood Count 4.6 x10^3/uL (4.0-11.0) Red Blood Count 4.57 x10^6/uL (3.50-5.40) Hemoglobin 15.3 g/dL (12.0-15.5) Hematocrit 45.0 % (36.0-47.0) Mean Corpuscular Volume 99 fL (79-100) Mean Corpuscular Hemoglobin 34 pg (25-35) Mean Corpuscular Hemoglobin Concent 34 g/dL (31-37) Red Cell Distribution Width 13.5 % (11.5-14.5) Platelet Count 126 x10^3/uL (140-400) Neutrophils (%) (Auto) 91 % (31-73) Lymphocytes (%) (Auto) 8 % (24-48) Monocytes (%) (Auto) 2 % (0-9) Eosinophils (%) (Auto) 0 % (0-3) Basophils (%) (Auto) 0 % (0-3) Neutrophils # (Auto) 4.2 x10^3/uL (1.8-7.7) Lymphocytes # (Auto) 0.3 x10^3/uL (1.0-4.8) Monocytes # (Auto) 0.1 x10^3/uL (0.0-1.1) Eosinophils # (Auto) 0.0 x10^3/uL (0.0-0.7) Basophils # (Auto) 0.0 x10^3/uL (0.0-0.2) Prothrombin Time 12.6 SEC (11.7-14.0) Prothromb Time International Ratio 1.0 (0.8-1.1) Activated Partial Thromboplast Time 27 SEC (24-38) Sodium Level 137 mmol/L (136-145) Potassium Level 4.1 mmol/L (3.5-5.1) Chloride Level 102 mmol/L (98-107) Carbon Dioxide Level 19 mmol/L (21-32) Anion Gap 16 (6-14) Blood Urea Nitrogen 13 mg/dL (7-20) Creatinine 0.7 mg/dL (0.6-1.0) Estimated GFR (Cockcroft-Gault) 98.3 BUN/Creatinine Ratio 19 (6-20) Glucose Level 152 mg/dL (70-99) Calcium Level 8.4 mg/dL (8.5-10.1) Total Bilirubin 0.9 mg/dL (0.2-1.0) Aspartate Amino Transf (AST/SGOT) 55 U/L (15-37) Alanine Aminotransferase (ALT/SGPT) 61 U/L (14-59) Alkaline Phosphatase 61 U/L (46-116) Total Protein 7.4 g/dL (6.4-8.2) Albumin 3.0 g/dL (3.4-5.0) Albumin/Globulin Ratio 0.7 (1.0-1.7) Medications Current Medications Lorazepam (Ativan) 4 mg PRN Q1HR PRN PO For CIWA 8-14; Start 04/08/20 at 23:30 Lorazepam (Ativan) 8 mg PRN Q1HR PRN PO For CIWA 15 or greater; Start 04/08/20 at 23:30 Lorazepam (Ativan Inj) 2 mg PRN Q1HR PRN IV For CIWA 8-14 Last administered on 04/09/20at 09:52; Start 04/08/20 at 23:30 Lorazepam (Ativan Inj) 4 mg PRN Q1HR PRN IV For CIWA 15 or greater Last administered on 04/10/20at 05:00; Start 04/08/20 at 23:30 Haloperidol Lactate (Haldol Inj) 5 mg PRN Q4HRS PRN IVP Hallucinatns,Confusn,Delirium Last administered on 04/09/20at 01:46; Start 04/08/20 at 23:30 Clonidine HCl (Catapres) 0.1 mg PRN Q1HR PRN PO SBP > 180 OR DBP > 100, MRX3 Last administered on 04/09/20at 00:15; Start 04/08/20 at 23:30 Lorazepam (Ativan Inj) 2 mg PRN Q15MIN PRN IV SEE COMMENTS Last administered on 04/08/20at 23:48; Start 04/08/20 at 23:30 Lorazepam (Ativan Inj) 4 mg PRN Q15MIN PRN IV SEE COMMENTS Last administered on 04/09/20at 02:34; Start 04/08/20 at 23:30 Levetiracetam 500 mg/Dextrose 105 ml @ 420 mls/hr Q12HR IV Last administered on 04/10/20at 08:19; Start 04/09/20 at 09:00 Ringer's Solution 1,000 ml @ 100 mls/hr Q10H IV Last administered on 04/09/20at 08:57; Start 04/08/20 at 23:30; Stop 04/09/20 at 12:09; Status DC Labetalol HCl (Normodyne Iv Push) 10 mg PRN Q2HRS PRN IVP HYPERTENSION-1ST CHO ICE Last administered on 04/09/20at 17:10; Start 04/09/20 at 03:00 Dexmedetomidine HCl 400 mcg/ Sodium Chloride 100 ml @ 0 mls/hr CONT PRN IV PER PROTOCOL Last administered on 04/10/20at 08:25; Start 04/09/20 at 03:00 Sodium Chloride 500 ml @ 500 mls/hr 1X PRN PRN IV SEE COMMENTS; Start 04/09/20 at 03:00 Atropine Sulfate (ATROPINE 0.5mg SYRINGE) 0.5 mg PRN Q5MIN PRN IV SEE COMMENTS; Start 04/09/20 at 03:00 Sodium Chloride 1,000 ml @ 50 mls/hr Q20H IV ; Start 04/09/20 at 08:45; Stop 04/09/20 at 09:01; Status DC Thiamine HCl (Thiamine Im) 100 mg DAILY IM Last administered on 04/10/20at 08:19; Start 04/09/20 at 10:00 Hydralazine HCl (Apresoline Inj) 10 mg PRN Q4HRS PRN IVP ELEVATED BP, SEE COMMENTS Last administered on 04/09/20at 23:04; Start 04/09/20 at 10:15 Amlodipine Besylate (Norvasc) 5 mg DAILY PO ; Start 04/09/20 at 10:15 Ceftriaxone Sodium (Rocephin) 1 gm Q24H IVP Last administered on 04/09/20at 10:53; Start 04/09/20 at 11:00; Stop 04/09/20 at 12:06; Status DC Potassium Chloride (Klor-Con) 40 meq 1X ONCE PO ; Start 04/09/20 at 10:15; Stop 04/09/20 at 10:16; Status DC Potassium Chloride (Klor-Con) 20 meq DAILYWBKFT PO ; Start 04/10/20 at 08:00 Hydralazine HCl (Apresoline Inj) 10 mg PRN Q4HRS PRN IVP ELEVATED BP, SEE COMMENTS; Start 04/09/20 at 10:15; Status UNV Clonidine HCl (Catapres Tts-1) 1 patch WEEKLY TD Last administered on 04/09/20at 10:57; Start 04/09/20 at 11:00 Acetaminophen (Tylenol) 650 mg PRN Q6HRS PRN PO Headaches, Temp > 101.5'; Start 04/09/20 at 10:15 Lorazepam (Ativan Inj) 0.5 mg PRN Q6HRS PRN IVP ANXIETY / AGITATION; Start 04/09/20 at 10:15 Ondansetron HCl (Zofran) 4 mg PRN Q6HRS PRN IVP NAUSEA/VOMITING; Start 04/09/20 at 10:15 Prochlorperazine (Compazine) [address] NAUSEA/VOMITING; Start 04/09/20 at 10:15 Al Hydroxide/Mg Hydroxide (Mylanta Plus Xs) 30 ml PRN Q3HRS PRN PO HEARTBURN / GAS; Start 04/09/20 at 10:15 Calcium Carbonate/ Glycine (Tums) 500 mg PRN Q3HRS PRN PO HEARTBURN / GAS; Start 04/09/20 at 10:15 Famotidine (Pepcid Vial) 20 mg BID IVP Last administered on 04/10/20at 08:19; Start 04/09/20 at 21:00 Heparin Sodium (Porcine) (Heparin Sodium) 5,000 unit Q8HRS SQ Last administered on 04/10/20at 06:36; Start 04/09/20 at 14:00 Sodium Chloride (Normal Saline Flush) 3 ml QSHIFT PRN IV AFTER MEDS AND BLOOD DRAWS; Start 04/09/20 at 10:15 Docusate Sodium (Colace) 100 mg BID PO ; Start 04/09/20 at 21:00 Magnesium Hydroxide (Milk Of Magnesia) 2,400 mg PRN Q12HR PRN PO CONSTIPATION; Start 04/09/20 at 10:15 Vancomycin HCl (Vanco Per Pharmacy) 1 each PRN DAILY PRN MC SEE COMMENTS Last administered on 04/09/20at 13:43; Start 04/09/20 at 11:15 Sodium Chloride 1,000 ml @ 1,710 mls/hr Q36M IV ; Start 04/09/20 at 11:30; Stop 04/09/20 at 11:27; Status DC Sodium Chloride 500 ml @ 1,000 mls/hr PRN Q30MIN PRN IV SEE COMMENTS; Start 04/09/20 at 11:30; Stop 04/09/20 at 12:13; Status DC Albuterol/ Ipratropium (Duoneb) 3 ml RTQID NEB Last administered on 04/09/20at 20:20; Start 04/09/20 at 12:00 Sodium Chloride 1,000 ml @ 1,710 mls/hr Q36M PRN IV SEE COMMENTS; Start 04/09/20 at 11:30 Vancomycin HCl 1.75 gm/Sodium Chloride 500 ml @ 250 mls/hr 1X ONCE IV Last administered on 04/09/20at 12:06; Start 04/09/20 at 12:00; Stop 04/09/20 at 13:59; Status DC Acyclovir Sodium 575 mg/Dextrose 111.5 ml @ 111.5 mls/ hr Q8HRS IV Last admi nistered on 04/10/20at 06:44; Start 04/09/20 at 14:00 Cefepime HCl (Maxipime) 2 gm Q8HRS IVP Last administered on 04/10/20at 06:39; Start 04/09/20 at 14:00 Potassium Chloride/Sodium Chloride 1,000 ml @ 100 mls/hr Q10H IV Last administered on 04/09/20at 13:08; Start 04/09/20 at 12:15; Stop 04/09/20 at 22:14; Status DC Ringer's Solution 1,000 ml @ 100 mls/hr Q10H IV ; Start 04/09/20 at 23:00; Stop 04/10/20 at 01:06; Status DC Methylprednisolone Sodium Succinate (SOLU-Medrol 125MG VIAL) 100 mg Q8HRS IV Last administered on 04/10/20at 06:35; Start 04/09/20 at 14:00 Vancomycin HCl 1 gm/Sodium Chloride 250 ml @ 250 mls/hr Q8H IV Last administered on 04/10/20at 04:57; Start 04/09/20 at 20:00 Vancomycin HCl (Vancomycin Trough Level) 1 each 1X ONCE MC ; Start 04/10/20 at 11:30; Stop 04/10/20 at 11:31 Acetaminophen (Tylenol Supp) [address] Q6[address]RS [address] MILD PAIN / TEMP > 100.3'F Last administered on 04/09/20at 19:42; Start 04/09/20 at 19:30 Fentanyl Citrate (Fentanyl 2ml Vial) 50 mcg PRN Q2HR PRN IVP SEVERE PAIN 7-10 Last administered on 04/10/20at 04:58; Start 04/09/20 at 22:45 Vitals/I & O Vital Sign - Last 24 Hours 04/09/20 04/09/20 04/09/20 04/09/20 09:00 10:00 10:50 11:00 Pulse 68 70 70 82 Resp 18 16 16 B/P (MAP) 168/113 (131) 174/115 (134) 174/115 146/95 (112) Pulse Ox 96 95 94 O2 Delivery Room Air Room Air Room Air 04/09/20 04/09/20 04/09/20 04/09/20 11:33 12:00 12:28 13:00 Temp 99.4 99.4 Pulse 80 66 Resp 16 16 B/P (MAP) 146/102 (117) 189/119 (142) Pulse Ox 93 95 96 O2 Delivery Room Air Room Air Venturi Mask Room Air O2 Flow Rate 6.0 04/09/20 04/09/20 04/09/20 04/09/20 13:35 15:00 15:36 15:43 Pulse 79 80 Resp 21 30 B/P (MAP) 145/103 (117) 167/99 (121) Pulse Ox 93 91 94 O2 Delivery Venturi Mask Venturi Mask Venturi Mask Venturi Mask O2 Flow Rate 6.0 204/09/20 04/09/20 04/09/20 16:00 17:00 17:10 18:00 Temp 98.2 98.2 Pulse 67 78 72 84 Resp 34 28 25 B/P (MAP) 152/94 (113) 170/102 (124) 170/102 159/113 (128) Pulse Ox 96 95 97 O2 Delivery Venturi Mask Venturi Mask Venturi Mask 04/09/20 04/09/20 04/09/20 04/09/20 19:13 19:34 20:04 20:22 Temp 100.4 100.4 100.4 100.4 Pulse 79 102 Resp 18 22 B/P (MAP) 168/102 (124) 161/102 (121) Pulse Ox 96 98 98 O2 Delivery Venturi Mask Venturi Mask Venturi Mask Venturi Mask O2 Flow Rate 6.0 6.0 6.0 6.0 04/09/20 04/09/20 04/09/20 04/09/20 20:48 21:55 22:43 22:56 Temp 99.3 99.0 99.0 99.3 99.0 99.0 Pulse 92 97 91 Resp 18 17 20 B/P (MAP) 156/93 (114) 172/110 (130) 175/110 (131) Pulse Ox 99 97 99 95 O2 Delivery Venturi Mask Venturi Mask Venturi Mask Venturi Mask O2 Flow Rate 6.0 6.0 6.0 04/09/20 04/09/20 04/09/20 04/10/20 23:04 23:21 23:29 00:02 Pulse 91 93 Resp 22 20 B/P (MAP) 175/110 107/68 (81) Pulse Ox 95 95 O2 Delivery Venturi Mask Venturi Mask Venturi Mask O2 Flow Rate 6.0 04/10/20 04/10/20 04/10/20 04/10/20 01:00 01:00 02:00 03:00 Pulse 87 93 87 Resp 24 24 22 B/P (MAP) 131/73 (92) 135/85 (102) 146/90 (108) Pulse Ox 96 95 94 O2 Delivery Venturi Mask Venturi Mask Venturi Mask Venturi Mask O2 Flow Rate 6.0 04/10/20 04/10/20 04/10/20 04/10/20 04:00 04:00 04:58 05:00 Temp 98.3 98.3 Pulse 80 92 Resp 18 26 B/P (MAP) 140/98 (112) 172/111 (131) Pulse Ox 95 94 95 O2 Delivery Venturi Mask Venturi Mask Venturi Mask Venturi Mask O2 Flow Rate 6.0 6.0 04/10/20 04/10/20 04/10/20 04/10/20 05:25 06:00 07:00 07:51 Pulse 86 92 87 Resp 24 20 20 B/P (MAP) 161/105 (123) 158/107 (124) 158/107 Pulse Ox 95 95 97 O2 Delivery Venturi Mask Venturi Mask Venturi Mask 04/10/20 08:02 Temp 98.7 98.7 Pulse 84 Resp 20 B/P (MAP) 152/98 (116) Pulse Ox 97 O2 Delivery Venturi Mask Intake and Output 04/09/20 04/09/20 04/10/20 15:00 23:00 07:00 Intake Total 0 ml 466.5 ml 3483 ml Output Total 250 ml 675 ml 270 ml Balance -250 ml -208.5 ml 3213 ml Justicifation of Admission Dx: Justifications for Admission: Justification of Admission Dx: Yes Comments: sepsis BRISA GARRETT MD Apr 10, 2020 08:36
--- NOTE | 2020-04-10 08:45 | PDOC ---
PROGRESS NOTES Date of Service DATE: 04/10/20 TIME: 08:43 Assessment New seizures in a patient with drug and substance abuse, psychiatric disease, stress from friend's , but she also had some fevers and chills raising the possibility of infection Disconjugate gaze has resolved Initially had lactic acidosis Plan MRI of the brain on hold because she was unable to lie flat safely, now is more agitated and probably will not be cooperative Try for electroencephalogram Continue levetiracetam Continue Precedex Thiamine Subjective Difficult to understand her Objective Vital Signs Date Time Temp Pulse Resp B/P (MAP) Pulse Ox O2 Delivery O2 Flow Rate FiO2 04/10/20 08:02 98.7 84 20 152/98 (116) 97 Venturi Mask 98.7 04/10/20 04:58 6.0 Intake and Output 04/10/20 07:00 Intake Total 3949.5 ml Output Total 1195 ml Balance 2754.5 ml Intake Oral 0 ml IV Total 3949.5 ml Output Urine Total 1195 ml PHYSICAL EXAM Alert. Follows commands, cannot understand her speech due to swollen tongue PERRL. EOMI. CN: no focal findings. Muscle tone: normal. Muscle strength: 5/5 DTR: 2+ Plantar reflex: Dr. Gait: not examined in bed. Sensory exam: no abnormal findings. Cerebellar: Uncooperative with exam, no obvious ataxia No evidence of tremulousness Review of Relevant I have reviewed the following items celsa (where applicable) has been applied. Labs Laboratory Tests Test 04/08/20 23:51 04/09/20 07:30 04/09/20 09:08 04/09/20 09:10 Sodium Level 134 mmol/L (136-145) 138 mmol/L (136-145) Potassium Level 3.7 mmol/L (3.5-5.1) 3.4 mmol/L (3.5-5.1) Chloride Level 98 mmol/L (98-107) 100 mmol/L (98-107) Carbon Dioxide Level 27 mmol/L (21-32) 25 mmol/L (21-32) Anion Gap 9 (6-14) 13 (6-14) Blood Urea Nitrogen 8 mg/dL (7-20) 7 mg/dL (7-20) Creatinine 0.7 mg/dL (0.6-1.0) 0.7 mg/dL (0.6-1.0) Estimated GFR (Cockcroft-Gault) 98.3 98.3 Glucose Level 81 mg/dL (70-99) 99 mg/dL (70-99) Calcium Level 8.8 mg/dL (8.5-10.1) 8.6 mg/dL (8.5-10.1) Magnesium Level 1.9 mg/dL (1.8-2.4) 1.8 mg/dL (1.8-2.4) White Blood Count 7.6 x10^3/uL (4.0-11.0) Red Blood Count 4.65 x10^6/uL (3.50-5.40) Hemoglobin 15.2 g/dL (12.0-15.5) Hematocrit 45.5 % (36.0-47.0) Mean Corpuscular Volume 98 fL (79-100) Mean Corpuscular Hemoglobin 33 pg (25-35) Mean Corpuscular Hemoglobin Concent 34 g/dL (31-37) Red Cell Distribution Width 13.4 % (11.5-14.5) Platelet Count 135 x10^3/uL (140-400) Neutrophils (%) (Auto) 80 % (31-73) Lymphocytes (%) (Auto) 10 % (24-48) Monocytes (%) (Auto) 8 % (0-9) Eosinophils (%) (Auto) 0 % (0-3) Basophils (%) (Auto) 1 % (0-3) Neutrophils # (Auto) 6.1 x10^3/uL (1.8-7.7) Lymphocytes # (Auto) 0.8 x10^3/uL (1.0-4.8) Monocytes # (Auto) 0.6 x10^3/uL (0.0-1.1) Eosinophils # (Auto) 0.0 x10^3/uL (0.0-0.7) Basophils # (Auto) 0.1 x10^3/uL (0.0-0.2) Fibrinogen 400 mg/dL (200-440) D-Dimer (Nica) 2.09 ug/mlFEU (0.00-0.50) BUN/Creatinine Ratio 10 (6-20) Total Bilirubin 1.6 mg/dL (0.2-1.0) Aspartate Amino Transf (AST/SGOT) 106 U/L (15-37) Alanine Aminotransferase (ALT/SGPT) 86 U/L (14-59) Alkaline Phosphatase 69 U/L (46-116) Lactate Dehydrogenase 347 U/L (81-234) C-Reactive Protein, Quantitative 0.8 mg/L (0-3.3) Total Protein 7.6 g/dL (6.4-8.2) Albumin 3.2 g/dL (3.4-5.0) Albumin/Globulin Ratio 0.7 (1.0-1.7) Procalcitonin 0.19 ng/mL (0.00-0.10) Thyroid Stimulating Hormone (TSH) 3.111 uIU/mL (0.358-3.74) Ethyl Alcohol Level < 10 mg/dL (0-10) O2 Saturation 95 % (92-99) Arterial Blood pH 7.43 (7.35-7.45) Arterial Blood pCO2 at Patient Temp 31 mmHg (35-46) Arterial Blood pO2 at Patient Temp 70 mmHg (85-108) Arterial Blood HCO3 20 mmol/L (21-28) Arterial Blood Base Excess -3 mmol/L (-3-3) FiO2 SARS-CoV-2 Antigen (Rapid) Negative (NEGATIVE) Test 04/09/20 09:20 04/09/20 11:29 04/09/20 11:43 04/09/20 15:53 Urine Collection Type Unknown Urine Color Yellow Urine Clarity Clear Urine pH 7.0 (<5.0-8.0) Urine Specific [place] 1.010 (1.000-1.030) Urine Protein 100 mg/dL (NEG-TRACE) Urine Glucose (UA) Negative mg/dL (NEG) Urine Ketones (Stick) 15 mg/dL (NEG) Urine Blood Large (NEG) Urine Nitrite Negative (NEG) Urine Bilirubin Negative (NEG) Urine Urobilinogen Dipstick 1.0 mg/dL (0.2 mg/dL) Urine Leukocyte Esterase Trace (NEG) Urine RBC 3-5 /HPF (0-2) Urine WBC 5-10 /HPF (0-4) Urine Bacteria Few /HPF (0-FEW) Urine Opiates Screen Neg (NEG) Urine Methadone Screen Neg (NEG) Urine Barbiturates Neg (NEG) Urine Phencyclidine Screen Neg (NEG) Urine Amphetamine/Methamphetamine Neg (NEG) Urine Benzodiazepines Screen Neg (NEG) Urine Cocaine Screen Neg (NEG) Urine Cannabinoids Screen Neg (NEG) Urine Ethyl Alcohol Neg (NEG) Lactic Acid Level 0.9 mmol/L (0.4-2.0) Glucose (Fingerstick) 105 mg/dL (70-99) 150 mg/dL (70-99) Test 04/10/20 04:30 White Blood Count 4.6 x10^3/uL (4.0-11.0) Red Blood Count 4.57 x10^6/uL (3.50-5.40) Hemoglobin 15.3 g/dL (12.0-15.5) Hematocrit 45.0 % (36.0-47.0) Mean Corpuscular Volume 99 fL (79-100) Mean Corpuscular Hemoglobin 34 pg (25-35) Mean Corpuscular Hemoglobin Concent 34 g/dL (31-37) Red Cell Distribution Width 13.5 % (11.5-14.5) Platelet Count 126 x10^3/uL (140-400) Neutrophils (%) (Auto) 91 % (31-73) Lymphocytes (%) (Auto) 8 % (24-48) Monocytes (%) (Auto) 2 % (0-9) Eosinophils (%) (Auto) 0 % (0-3) Basophils (%) (Auto) 0 % (0-3) Neutrophils # (Auto) 4.2 x10^3/uL (1.8-7.7) Lymphocytes # (Auto) 0.3 x10^3/uL (1.0-4.8) Monocytes # (Auto) 0.1 x10^3/uL (0.0-1.1) Eosinophils # (Auto) 0.0 x10^3/uL (0.0-0.7) Basophils # (Auto) 0.0 x10^3/uL (0.0-0.2) Prothrombin Time 12.6 SEC (11.7-14.0) Prothromb Time International Ratio 1.0 (0.8-1.1) Activated Partial Thromboplast Time 27 SEC (24-38) Sodium Level 137 mmol/L (136-145) Potassium Level 4.1 mmol/L (3.5-5.1) Chloride Level 102 mmol/L (98-107) Carbon Dioxide Level 19 mmol/L (21-32) Anion Gap 16 (6-14) Blood Urea Nitrogen 13 mg/dL (7-20) Creatinine 0.7 mg/dL (0.6-1.0) Estimated GFR (Cockcroft-Gault) 98.3 BUN/Creatinine Ratio 19 (6-20) Glucose Level 152 mg/dL (70-99) Calcium Level 8.4 mg/dL (8.5-10.1) Total Bilirubin 0.9 mg/dL (0.2-1.0) Aspartate Amino Transf (AST/SGOT) 55 U/L (15-37) Alanine Aminotransferase (ALT/SGPT) 61 U/L (14-59) Alkaline Phosphatase 61 U/L (46-116) Total Protein 7.4 g/dL (6.4-8.2) Albumin 3.0 g/dL (3.4-5.0) Albumin/Globulin Ratio 0.7 (1.0-1.7) Laboratory Tests Test 04/09/20 09:08 04/09/20 09:10 04/09/20 09:20 04/09/20 11:29 O2 Saturation 95 % (92-99) Arterial Blood pH 7.43 (7.35-7.45) Arterial Blood pCO2 at Patient Temp 31 mmHg (35-46) Arterial Blood pO2 at Patient Temp 70 mmHg (85-108) Arterial Blood HCO3 20 mmol/L (21-28) Arterial Blood Base Excess -3 mmol/L (-3-3) FiO2 21/ra SARS-CoV-2 Antigen (Rapid) Negative (NEGATIVE) Urine Collection Type Unknown Urine Color Yellow Urine Clarity Clear Urine pH 7.0 (<5.0-8.0) Urine Specific [place] 1.010 (1.000-1.030) Urine Protein 100 mg/dL (NEG-TRACE) Urine Glucose (UA) Negative mg/dL (NEG) Urine Ketones (Stick) 15 mg/dL (NEG) Urine Blood Large (NEG) Urine Nitrite Negative (NEG) Urine Bilirubin Negative (NEG) Urine Urobilinogen Dipstick 1.0 mg/dL (0.2 mg/dL) Urine Leukocyte Esterase Trace (NEG) Urine RBC 3-5 /HPF (0-2) Urine WBC 5-10 /HPF (0-4) Urine Bacteria Few /HPF (0-FEW) Urine Opiates Screen Neg (NEG) Urine Methadone Screen Neg (NEG) Urine Barbiturates Neg (NEG) Urine Phencyclidine Screen Neg (NEG) Urine Amphetamine/Methamphetamine Neg (NEG) Urine Benzodiazepines Screen Neg (NEG) Urine Cocaine Screen Neg (NEG) Urine Cannabinoids Screen Neg (NEG) Urine Ethyl Alcohol Neg (NEG) Lactic Acid Level 0.9 mmol/L (0.4-2.0) Test 04/09/20 11:43 04/09/20 15:53 04/10/20 04:30 Glucose (Fingerstick) 105 mg/dL (70-99) 150 mg/dL (70-99) White Blood Count 4.6 x10^3/uL (4.0-11.0) Red Blood Count 4.57 x10^6/uL (3.50-5.40) Hemoglobin 15.3 g/dL (12.0-15.5) Hematocrit 45.0 % (36.0-47.0) Mean Corpuscular Volume 99 fL (79-100) Mean Corpuscular Hemoglobin 34 pg (25-35) Mean Corpuscular Hemoglobin Concent 34 g/dL (31-37) Red Cell Distribution Width 13.5 % (11.5-14.5) Platelet Count 126 x10^3/uL (140-400) Neutrophils (%) (Auto) 91 % (31-73) Lymphocytes (%) (Auto) 8 % (24-48) Monocytes (%) (Auto) 2 % (0-9) Eosinophils (%) (Auto) 0 % (0-3) Basophils (%) (Auto) 0 % (0-3) Neutrophils # (Auto) 4.2 x10^3/uL (1.8-7.7) Lymphocytes # (Auto) 0.3 x10^3/uL (1.0-4.8) Monocytes # (Auto) 0.1 x10^3/uL (0.0-1.1) Eosinophils # (Auto) 0.0 x10^3/uL (0.0-0.7) Basophils # (Auto) 0.0 x10^3/uL (0.0-0.2) Prothrombin Time 12.6 SEC (11.7-14.0) Prothromb Time International Ratio 1.0 (0.8-1.1) Activated Partial Thromboplast Time 27 SEC (24-38) Sodium Level 137 mmol/L (136-145) Potassium Level 4.1 mmol/L (3.5-5.1) Chloride Level 102 mmol/L (98-107) Carbon Dioxide Level 19 mmol/L (21-32) Anion Gap 16 (6-14) Blood Urea Nitrogen 13 mg/dL (7-20) Creatinine 0.7 mg/dL (0.6-1.0) Estimated GFR (Cockcroft-Gault) 98.3 BUN/Creatinine Ratio 19 (6-20) Glucose Level 152 mg/dL (70-99) Calcium Level 8.4 mg/dL (8.5-10.1) Total Bilirubin 0.9 mg/dL (0.2-1.0) Aspartate Amino Transf (AST/SGOT) 55 U/L (15-37) Alanine Aminotransferase (ALT/SGPT) 61 U/L (14-59) Alkaline Phosphatase 61 U/L (46-116) Total Protein 7.4 g/dL (6.4-8.2) Albumin 3.0 g/dL (3.4-5.0) Albumin/Globulin Ratio 0.7 (1.0-1.7) Medications Current Medications Lorazepam (Ativan) 4 mg PRN Q1HR PRN PO For CIWA 8-14; Start 04/08/20 at 23:30 Lorazepam (Ativan) 8 mg PRN Q1HR PRN PO For CIWA 15 or greater; Start 04/08/20 at 23:30 Lorazepam (Ativan Inj) 2 mg PRN Q1HR PRN IV For CIWA 8-14 Last administered on 04/09/20at 09:52; Start 04/08/20 at 23:30 Lorazepam (Ativan Inj) 4 mg PRN Q1HR PRN IV For CIWA 15 or greater Last administered on 04/10/20at 05:00; Start 04/08/20 at 23:30 Haloperidol Lactate (Haldol Inj) 5 mg PRN Q4HRS PRN IVP Hallucinatns,Confusn,Delirium Last administered on 04/09/20at 01:46; Start 04/08/20 at 23:30 Clonidine HCl (Catapres) 0.1 mg PRN Q1HR PRN PO SBP > 180 OR DBP > 100, MRX3 Last administered on 04/09/20at 00:15; Start 04/08/20 at 23:30 Lorazepam (Ativan Inj) 2 mg PRN Q15MIN PRN IV SEE COMMENTS Last administered on 04/08/20at 23:48; Start 04/08/20 at 23:30 Lorazepam (Ativan Inj) 4 mg PRN Q15MIN PRN IV SEE COMMENTS Last administered on 04/09/20at 02:34; Start 04/08/20 at 23:30 Levetiracetam 500 mg/Dextrose 105 ml @ 420 mls/hr Q12HR IV Last administered on 04/10/20at 08:19; Start 04/09/20 at 09:00 Ringer's Solution 1,000 ml @ 100 mls/hr Q10H IV Last administered on 04/09/20at 08:57; Start 04/08/20 at 23:30; Stop 04/09/20 at 12:09; Status DC Labetalol HCl (Normodyne Iv Push) 10 mg PRN Q2HRS PRN IVP HYPERTENSION-1ST CHOICE Last administered on 04/09/20at 17:10; Start 04/09/20 at 03:00 Dexmedetomidine HCl 400 mcg/ Sodium Chloride 100 ml @ 0 mls/hr CONT PRN IV PER PROTOCOL Last administered on 04/10/20at 08:25; Start 04/09/20 at 03:00 Sodium Chloride 500 ml @ 500 mls/hr 1X PRN PRN IV SEE COMMENTS; Start 04/09/20 at 03:00 Atropine Sulfate (ATROPINE 0.5mg SYRINGE) 0.5 mg PRN Q5MIN PRN IV SEE COMMENTS; Start 04/09/20 at 03:00 Sodium Chloride 1,000 ml @ 50 mls/hr Q20H IV ; Start 04/09/20 at 08:45; Stop 04/09/20 at 09:01; Status DC Thiamine HCl (Thiamine Im) 100 mg DAILY IM Last administered on 04/10/20at 08:19; Start 04/09/20 at 10:00 Hydralazine HCl (Apresoline Inj) 10 mg PRN Q4HRS PRN IVP ELEVATED BP, SEE COMMENTS Last administered on 04/09/20at 23:04; Start 04/09/20 at 10:15 Amlodipine Besylate (Norvasc) 5 mg DAILY PO ; Start 04/09/20 at 10:15 Ceftriaxone Sodium (Rocephin) 1 gm Q24H IVP Last administered on 04/09/20at 10:53; Start 04/09/20 at 11:00; Stop 04/09/20 at 12:06; Status DC Potassium Chloride (Klor-Con) 40 meq 1X ONCE PO ; Start 04/09/20 at 10:15; Stop 04/09/20 at 10:16; Status DC Potassium Chloride (Klor-Con) 20 meq DAILYWBKFT PO ; Start 04/10/20 at 08:00 Hydralazine HCl (Apresoline Inj) 10 mg PRN Q4HRS PRN IVP ELEVATED BP, SEE COMMENTS; Start 04/09/20 at 10:15; Status UNV Clonidine HCl (Catapres Tts-1) 1 patch WEEKLY TD Last administered on 04/09/20at 10:57; Start 04/09/20 at 11:00 Acetaminophen (Tylenol) 650 mg PRN Q6HRS PRN PO Headaches, Temp > 101.5'; Start 04/09/20 at 10:15 Lorazepam (Ativan Inj) 0.5 mg PRN Q6HRS PRN IVP ANXIETY / AGITATION; Start 04/09/20 at 10:15 Ondansetron HCl (Zofran) 4 mg PRN Q6HRS PRN IVP NAUSEA/VOMITING; Start 04/09/20 at 10:15 Prochlorperazine (Compazine) 25 mg PRN Q12HR PRN ND NAUSEA/VOMITING; Start 04/09/20 at 10:15 Al Hydroxide/Mg Hydroxide (Mylanta Plus Xs) 30 ml PRN Q3HRS PRN PO HEARTBURN / GAS; Start 04/09/20 at 10:15 Calcium Carbonate/ Glycine (Tums) 500 mg PRN Q3HRS PRN PO HEARTBURN / GAS; Start 04/09/20 at 10:15 Famotidine (Pepcid Vial) 20 mg BID IVP Last administered on 04/10/20at 08:19; Start 04/09/20 at 21:00 Heparin Sodium (Porcine) (Heparin Sodium) 5,000 unit Q8HRS SQ Last administered on 04/10/20at 06:36; Start 04/09/20 at 14:00 Sodium Chloride (Normal Saline Flush) 3 ml QSHIFT PRN IV AFTER MEDS AND BLOOD DRAWS; Start 04/09/20 at 10:15 Docusate Sodium (Colace) 100 mg BID PO ; Start 04/09/20 at 21:00 Magnesium Hydroxide (Milk Of Magnesia) 2,400 mg PRN Q12HR PRN PO CONSTIPATION; Start 04/09/20 at 10:15 Vancomycin HCl (Vanco Per Pharmacy) 1 each PRN DAILY PRN MC SEE COMMENTS Last administered on 04/09/20at 13:43; Start 04/09/20 at 11:15 Sodium Chloride 1,000 ml @ 1,710 mls/hr Q36M IV ; Start 04/09/20 at 11:30; Stop 04/09/20 at 11:27; Status DC Sodium Chloride 500 ml @ 1,000 mls/hr PRN Q30MIN PRN IV SEE COMMENTS; Start 04/09/20 at 11:30; Stop 04/09/20 at 12:13; Status DC Albuterol/ Ipratropium (Duoneb) 3 ml RTQID NEB Last administered on 04/09/20at 20:20; Start 04/09/20 at 12:00 Sodium Chloride 1,000 ml @ 1,710 mls/hr Q36M PRN IV SEE COMMENTS; Start 04/09/20 at 11:30 Vancomycin HCl 1.75 gm/Sodium Chloride 500 ml @ 250 mls/hr 1X ONCE IV Last administered on 04/09/20at 12:06; Start 04/09/20 at 12:00; Stop 04/09/20 at 13:59; Status DC Acyclovir Sodium 575 mg/Dextrose 111.5 ml @ 111.5 mls/ hr Q8HRS IV Last administered on 04/10/20at 06:44; Start 04/09/20 at 14:00 Cefepime HCl (Maxipime) 2 gm Q8HRS IVP Last administered on 04/10/20at 06:39; Start 04/09/20 at 14:00 Potassium Chloride/Sodium Chloride 1,000 ml @ 100 mls/hr Q10H IV Last administered on 04/09/20at 13:08; Start 04/09/20 at 12:15; Stop 04/09/20 at 22:14; Status DC Ringer's Solution 1,000 ml @ 100 mls/hr Q10H IV ; Start 04/09/20 at 23:00; Stop 04/10/20 at 01:06; Status DC Methylprednisolone Sodium Succinate (SOLU-Medrol 125MG VIAL) 100 mg Q8HRS IV Last administered on 04/10/20at 06:35; Start 04/09/20 at 14:00 Vancomycin HCl 1 gm/Sodium Chloride 250 ml @ 250 mls/hr Q8H IV Last administered on 04/10/20at 04:57; Start 04/09/20 at 20:00 Vancomycin HCl (Vancomycin Trough Level) 1 each 1X ONCE MC ; Start 04/10/20 at 11:30; Stop 04/10/20 at 11:31 Acetaminophen (Tylenol Supp) 650 mg PRN Q6HRS PRN ND MILD PAIN / TEMP > 100.3'F Last administered on 04/09/20at 19:42; Start 04/09/20 at 19:30 Fentanyl Citrate (Fentanyl 2ml Vial) 50 mcg PRN Q2HR PRN IVP SEVERE PAIN 7-10 Last administered on 04/10/20at 04:58; Start 04/09/20 at 22:45 Vitals/I & O Vital Sign - Last 24 Hours 04/09/20 04/09/20 04/09/20 04/09/20 09:00 10:00 10:50 11:00 Pulse 68 70 70 82 Resp 18 16 16 B/P (MAP) 168/113 (131) 174/115 (134) 174/115 146/95 (112) Pulse Ox 96 95 94 O2 Delivery Room Air Room Air Room Air 04/09/20 04/09/20 04/09/20 04/09/20 11:33 12:00 12:28 13:00 Temp 99.4 99.4 Pulse 80 66 Resp 16 16 B/P (MAP) 146/102 (117) 189/119 (142) Pulse Ox 93 95 96 O2 Delivery Room Air Room Air Venturi Mask Room Air O2 Flow Rate 6.0 04/09/20 04/09/20 04/09/20 04/09/20 13:35 15:00 15:36 15:43 Pulse 79 80 Resp 21 30 B/P (MAP) 145/103 (117) 167/99 (121) Pulse Ox 93 91 94 O2 Delivery Venturi Mask Venturi Mask Venturi Mask Venturi Mask O2 Flow Rate 6.0 04/09/20 04/09/20 04/09/20 04/09/20 16:00 17:00 17:10 18:00 Temp 98.2 98.2 Pulse 67 78 72 84 Resp 34 28 25 B/P (MAP) 152/94 (113) 170/102 (124) 170/102 159/113 (128) Pulse Ox 96 95 97 O2 Delivery Venturi Mask Venturi Mask Venturi Mask 04/09/20 04/09/20 04/09/20 04/09/20 19:13 19:34 20:04 20:22 Temp 100.4 100.4 100.4 100.4 Pulse 79 102 Resp 18 22 B/P (MAP) 168/102 (124) 161/102 (121) Pulse Ox 96 98 98 O2 Delivery Venturi Mask Venturi Mask Venturi Mask Venturi Mask O2 Flow Rate 6.0 6.0 6.0 6.0 04/09/20 04/09/20 04/09/20 04/09/20 20:48 21:55 22:43 22:56 Temp 99.3 99.0 99.0 99.3 99.0 99.0 Pulse 92 97 91 Resp 18 17 20 B/P (MAP) 156/93 (114) 172/110 (130) 175/110 (131) Pulse Ox 99 97 99 95 O2 Delivery Venturi Mask Venturi Mask Venturi Mask Venturi Mask O2 Flow Rate 6.0 6.0 6.0 04/09/20 04/09/20 04/09/20 04/10/20 23:04 23:21 23:29 00:02 Pulse 91 93 Resp 22 20 B/P (MAP) 175/110 107/68 (81) Pulse Ox 95 95 O2 Delivery Venturi Mask Venturi Mask Venturi Mask O2 Flow Rate 6.0 04/10/20 04/10/20 04/10/20 04/10/20 01:00 01:00 02:00 03:00 Pulse 87 93 87 Resp 24 24 22 B/P (MAP) 131/73 (92) 135/85 (102) 146/90 (108) Pulse Ox 96 95 94 O2 Delivery Venturi Mask Venturi Mask Venturi Mask Venturi Mask O2 Flow Rate 6.0 2/04/10/20 04/10/20 04/10/20 04:00 04:00 04:58 05:00 Temp 98.3 98.3 Pulse 80 92 Resp 18 26 B/P (MAP) 140/98 (112) 172/111 (131) Pulse Ox 95 94 95 O2 Delivery Venturi Mask Venturi Mask Venturi Mask Venturi Mask O2 Flow Rate 6.0 6.0 04/10/20 04/10/20 04/10/20 04/10/20 05:25 06:00 07:00 07:51 Pulse 86 92 87 Resp 24 20 20 B/P (MAP) 161/105 (123) 158/107 (124) 158/107 Pulse Ox 95 95 97 O2 Delivery Venturi Mask Venturi Mask Venturi Mask 04/10/20 08:02 Temp 98.7 98.7 Pulse 84 Resp 20 B/P (MAP) 152/98 (116) Pulse Ox 97 O2 Delivery Venturi Mask Intake and Output 04/09/20 04/09/20 04/10/20 15:00 23:00 07:00 Intake Total 0 ml 466.5 ml 3483 ml Output Total 250 ml 675 ml 270 ml Balance -250 ml -208.5 ml 3213 ml Justicifation of Admission Dx: Justifications for Admission: Justification of Admission Dx: N/A RASHEED TRACY MD Apr 10, 2020 08:45
[2020-04-10] MEDS: IPRATRPIUM/ALBUTEROL 0.5/2.5MG 3 ML NEBU. NEB SCH ×4 (08:47→20:00)
--- NOTE | 2020-04-10 09:01 | PDOC ---
PULMONARY PROGRESS NOTES DATE: 04/10/20 TIME: 09:01 Subjective PT. is on Room air, remains on precedex gtt Tongue swelling has improved Vitals Vital Signs Date Time Temp Pulse Resp B/P (MAP) Pulse Ox O2 Delivery O2 Flow Rate FiO2 04/10/20 08:47 96 Room Air 04/10/20 08:02 98.7 84 20 152/98 (116) 98.7 04/10/20 04:58 6.0 ROS: No Nausea, No Chest Pain, No Abdominal Pain, No Increase Cough General: Alert, Confused Lungs: Clear Cardiovascular: S1, S2 Abdomen: Soft, Non-tender Neuro Exam: Alert Extremities: No Edema Skin: Warm, Dry Labs Laboratory Tests Test 04/08/20 23:51 04/09/20 07:30 04/09/20 09:08 04/09/20 09:10 Sodium Level 134 mmol/L (136-145) 138 mmol/L (136-145) Potassium Level 3.7 mmol/L (3.5-5.1) 3.4 mmol/L (3.5-5.1) Chloride Level 98 mmol/L (98-107) 100 mmol/L (98-107) Carbon Dioxide Level 27 mmol/L (21-32) 25 mmol/L (21-32) Anion Gap 9 (6-14) 13 (6-14) Blood Urea Nitrogen 8 mg/dL (7-20) 7 mg/dL (7-20) Creatinine 0.7 mg/dL (0.6-1.0) 0.7 mg/dL (0.6-1.0) Estimated GFR (Cockcroft-Gault) 98.3 98.3 Glucose Level 81 mg/dL (70-99) 99 mg/dL (70-99) Calcium Level 8.8 mg/dL (8.5-10.1) 8.6 mg/dL (8.5-10.1) Magnesium Level 1.9 mg/dL (1.8-2.4) 1.8 mg/dL (1.8-2.4) White Blood Count 7.6 x10^3/uL (4.0-11.0) Red Blood Count 4.65 x10^6/uL (3.50-5.40) Hemoglobin 15.2 g/dL (12.0-15.5) Hematocrit 45.5 % (36.0-47.0) Mean Corpuscular Volume 98 fL (79-100) Mean Corpuscular Hemoglobin 33 pg (25-35) Mean Corpuscular Hemoglobin Concent 34 g/dL (31-37) Red Cell Distribution Width 13.4 % (11.5-14.5) Platelet Count 135 x10^3/uL (140-400) Neutrophils (%) (Auto) 80 % (31-73) Lymphocytes (%) (Auto) 10 % (24-48) Monocytes (%) (Auto) 8 % (0-9) Eosinophils (%) (Auto) 0 % (0-3) Basophils (%) (Auto) 1 % (0-3) Neutrophils # (Auto) 6.1 x10^3/uL (1.8-7.7) Lymphocytes # (Auto) 0.8 x10^3/uL (1.0-4.8) Monocytes # (Auto) 0.6 x10^3/uL (0.0-1.1) Eosinophils # (Auto) 0.0 x10^3/uL (0.0-0.7) Basophils # (Auto) 0.1 x10^3/uL (0.0-0.2) Fibrinogen 400 mg/dL (200-440) D-Dimer (Nica) 2.09 ug/mlFEU (0.00-0.50) BUN/Creatinine Ratio 10 (6-20) Total Bilirubin 1.6 mg/dL (0.2-1.0) Aspartate Amino Transf (AST/SGOT) 106 U/L (15-37) Alanine Aminotransferase (ALT/SGPT) 86 U/L (14-59) Alkaline Phosphatase 69 U/L (46-116) Lactate Dehydrogenase 347 U/L (81-234) C-Reactive Protein, Quantitative 0.8 mg/L (0-3.3) Total Protein 7.6 g/dL (6.4-8.2) Albumin 3.2 g/dL (3.4-5.0) Albumin/Globulin Ratio 0.7 (1.0-1.7) Procalcitonin 0.19 ng/mL (0.00-0.10) Thyroid Stimulating Hormone (TSH) 3.111 uIU/mL (0.358-3.74) Ethyl Alcohol Level < 10 mg/dL (0-10) O2 Saturation 95 % (92-99) Arterial Blood pH 7.43 (7.35-7.45) Arterial Blood pCO2 at Patient Temp 31 mmHg (35-46) Arterial Blood pO2 at Patient Temp 70 mmHg (85-108) Arterial Blood HCO3 20 mmol/L (21-28) Arterial Blood Base Excess -3 mmol/L (-3-3) FiO2 21/ra SARS-CoV-2 Antigen (Rapid) Negative (NEGATIVE) Test 04/09/20 09:20 04/09/20 11:29 04/09/20 11:43 04/09/20 15:53 Urine Collection Type Unknown Urine Color Yellow Urine Clarity Clear Urine pH 7.0 (<5.0-8.0) Urine Specific [place] 1.010 (1.000-1.030) Urine Protein 100 mg/dL (NEG-TRACE) Urine Glucose (UA) Negative mg/dL (NEG) Urine Ketones (Stick) 15 mg/dL (NEG) Urine Blood Large (NEG) Urine Nitrite Negative (NEG) Urine Bilirubin Negative (NEG) Urine Urobilinogen Dipstick 1.0 mg/dL (0.2 mg/dL) Urine Leukocyte Esterase Trace (NEG) Urine RBC 3-5 /HPF (0-2) Urine WBC 5-10 /HPF (0-4) Urine Bacteria Few /HPF (0-FEW) Urine Opiates Screen Neg (NEG) Urine Methadone Screen Neg (NEG) Urine Barbiturates Neg (NEG) Urine Phencyclidine Screen Neg (NEG) Urine Amphetamine/Methamphetamine Neg (NEG) Urine Benzodiazepines Screen Neg (NEG) Urine Cocaine Screen Neg (NEG) Urine Cannabinoids Screen Neg (NEG) Urine Ethyl Alcohol Neg (NEG) Lactic Acid Level 0.9 mmol/L (0.4-2.0) Glucose (Fingerstick) 105 mg/dL (70-99) 150 mg/dL (70-99) Test 04/10/20 04:30 White Blood Count 4.6 x10^3/uL (4.0-11.0) Red Blood Count 4.57 x10^6/uL (3.50-5.40) Hemoglobin 15.3 g/dL (12.0-15.5) Hematocrit 45.0 % (36.0-47.0) Mean Corpuscular Volume 99 fL (79-100) Mean Corpuscular Hemoglobin 34 pg (25-35) Mean Corpuscular Hemoglobin Concent 34 g/dL (31-37) Red Cell Distribution Width 13.5 % (11.5-14.5) Platelet Count 126 x10^3/uL (140-400) Neutrophils (%) (Auto) 91 % (31-73) Lymphocytes (%) (Auto) 8 % (24-48) Monocytes (%) (Auto) 2 % (0-9) Eosinophils (%) (Auto) 0 % (0-3) Basophils (%) (Auto) 0 % (0-3) Neutrophils # (Auto) 4.2 x10^3/uL (1.8-7.7) Lymphocytes # (Auto) 0.3 x10^3/uL (1.0-4.8) Monocytes # (Auto) 0.1 x10^3/uL (0.0-1.1) Eosinophils # (Auto) 0.0 x10^3/uL (0.0-0.7) Basophils # (Auto) 0.0 x10^3/uL (0.0-0.2) Prothrombin Time 12.6 SEC (11.7-14.0) Prothromb Time International Ratio 1.0 (0.8-1.1) Activated Partial Thromboplast Time 27 SEC (24-38) Sodium Level 137 mmol/L (136-145) Potassium Level 4.1 mmol/L (3.5-5.1) Chloride Level 102 mmol/L (98-107) Carbon Dioxide Level 19 mmol/L (21-32) Anion Gap 16 (6-14) Blood Urea Nitrogen 13 mg/dL (7-20) Creatinine 0.7 mg/dL (0.6-1.0) Estimated GFR (Cockcroft-Gault) 98.3 BUN/Creatinine Ratio 19 (6-20) Glucose Level 152 mg/dL (70-99) Calcium Level 8.4 mg/dL (8.5-10.1) Total Bilirubin 0.9 mg/dL (0.2-1.0) Aspartate Amino Transf (AST/SGOT) 55 U/L (15-37) Alanine Aminotransferase (ALT/SGPT) 61 U/L (14-59) Alkaline Phosphatase 61 U/L (46-116) Total Protein 7.4 g/dL (6.4-8.2) Albumin 3.0 g/dL (3.4-5.0) Albumin/Globulin Ratio 0.7 (1.0-1.7) Laboratory Tests Test 04/09/20 09:08 04/09/20 09:10 04/09/20 09:20 04/09/20 11:29 O2 Saturation 95 % (92-99) Arterial Blood pH 7.43 (7.35-7.45) Arterial Blood pCO2 at Patient Temp 31 mmHg (35-46) Arterial Blood pO2 at Patient Temp 70 mmHg (85-108) Arterial Blood HCO3 20 mmol/L (21-28) Arterial Blood Base Excess -3 mmol/L (-3-3) FiO2 SARS-CoV-2 Antigen (Rapid) Negative (NEGATIVE) Urine Collection Type Unknown Urine Color Yellow Urine Clarity Clear Urine pH 7.0 (<5.0-8.0) Urine Specific [place] 1.010 (1.000-1.030) Urine Protein 100 mg/dL (NEG-TRACE) Urine Glucose (UA) Negative mg/dL (NEG) Urine Ketones (Stick) 15 mg/dL (NEG) Urine Blood Large (NEG) Urine Nitrite Negative (NEG) Urine Bilirubin Negative (NEG) Urine Urobilinogen Dipstick 1.0 mg/dL (0.2 mg/dL) Urine Leukocyte Esterase Trace (NEG) Urine RBC 3-5 /HPF (0-2) Urine WBC 5-10 /HPF (0-4) Urine Bacteria Few /HPF (0-FEW) Urine Opiates Screen Neg (NEG) Urine Methadone Screen Neg (NEG) Urine Barbiturates Neg (NEG) Urine Phencyclidine Screen Neg (NEG) Urine Amphetamine/Methamphetamine Neg (NEG) Urine Benzodiazepines Screen Neg (NEG) Urine Cocaine Screen Neg (NEG) Urine Cannabinoids Screen Neg (NEG) Urine Ethyl Alcohol Neg (NEG) Lactic Acid Level 0.9 mmol/L (0.4-2.0) Test 04/09/20 11:43 04/09/20 15:53 04/10/20 04:30 Glucose (Fingerstick) 105 mg/dL (70-99) 150 mg/dL (70-99) White Blood Count 4.6 x10^3/uL (4.0-11.0) Red Blood Count 4.57 x10^6/uL (3.50-5.40) Hemoglobin 15.3 g/dL (12.0-15.5) Hematocrit 45.0 % (36.0-47.0) Mean Corpuscular Volume 99 fL (79-100) Mean Corpuscular Hemoglobin 34 pg (25-35) Mean Corpuscular Hemoglobin Concent 34 g/dL (31-37) Red Cell Distribution Width 13.5 % (11.5-14.5) Platelet Count 126 x10^3/uL (140-400) Neutrophils (%) (Auto) 91 % (31-73) Lymphocytes (%) (Auto) 8 % (24-48) Monocytes (%) (Auto) 2 % (0-9) Eosinophils (%) (Auto) 0 % (0-3) Basophils (%) (Auto) 0 % (0-3) Neutrophils # (Auto) 4.2 x10^3/uL (1.8-7.7) Lymphocytes # (Auto) 0.3 x10^3/uL (1.0-4.8) Monocytes # (Auto) 0.1 x10^3/uL (0.0-1.1) Eosinophils # (Auto) 0.0 x10^3/uL (0.0-0.7) Basophils # (Auto) 0.0 x10^3/uL (0.0-0.2) Prothrombin Time 12.6 SEC (11.7-14.0) Prothromb Time International Ratio 1.0 (0.8-1.1) Activated Partial Thromboplast Time 27 SEC (24-38) Sodium Level 137 mmol/L (136-145) Potassium Level 4.1 mmol/L (3.5-5.1) Chloride Level 102 mmol/L (98-107) Carbon Dioxide Level 19 mmol/L (21-32) Anion Gap 16 (6-14) Blood Urea Nitrogen 13 mg/dL (7-20) Creatinine 0.7 mg/dL (0.6-1.0) Estimated GFR (Cockcroft-Gault) 98.3 BUN/Creatinine Ratio 19 (6-20) Glucose Level 152 mg/dL (70-99) Calcium Level 8.4 mg/dL (8.5-10.1) Total Bilirubin 0.9 mg/dL (0.2-1.0) Aspartate Amino Transf (AST/SGOT) 55 U/L (15-37) Alanine Aminotransferase (ALT/SGPT) 61 U/L (14-59) Alkaline Phosphatase 61 U/L (46-116) Total Protein 7.4 g/dL (6.4-8.2) Albumin 3.0 g/dL (3.4-5.0) Albumin/Globulin Ratio 0.7 (1.0-1.7) Comments CXR Impression: Faintly more pronounced haziness at the infrahilar right lung and basilar left lung. This could be in part technical though atelectasis or evolving infiltrates are possible as well. Impression . IMPRESSION: 1. Respiratory distress secondary to recent seizure, combination with swollen tongue, patient bit her tongue. She is currently not having any significant respiratory distress requiring intubation, no any additional measures. 2. Seizures. 3. History of polysubstance use. 4. Lactic acidosis secondary to seizures. 5. Fever, source of fever unclear. Plan . PLAN: Continue supplemental oxygen if needed, remains on room air Monitor airway, tongue swelling decreased today Follow Neurology recs Seizure precautions Follow ID recs for ABX Wean precedex as tolerated DVT/GI PPX D/W TONNY LISA MD Apr 10, 2020 09:01
[2020-04-10] MEDS: THIAMINE INJ 100 MG, FOLIC ACID INJ 1 MG in IV NORMAL SALINE 1000ML BAG 1,000 ML IV SCH (10:51)
[2020-04-10] MEDS ORDERED: ETOMIDATE 20 MG/10 ML VIAL. IV ONE (12:00)
[2020-04-10] MEDS ORDERED: SUCCINYLCHOLINE 200 MG/10 ML VIAL. IV ONE (12:00)
[2020-04-10 12:11] LABS: VANC TR 12.3 mcg/mL (10.0-20.0)
--- NOTE | 2020-04-10 12:29 | PDOC ---
Infectious Disease Note Subjective: Subjective Patient sedated Per discussion with RN patient had been alert answering a few questions earlier Able to sit edge of the bed and asked for water No fevers reported No more seizures No worsening of skin rash on the face Vital Signs: Vital Signs Vital Signs Date Time Temp Pulse Resp B/P (MAP) Pulse Ox O2 Delivery O2 Flow Rate FiO2 04/10/20 12:03 98.4 73 20 154/105 (121) 97 Room Air 98.4 04/10/20 08:00 6.0 Physical Exam: PHYSICAL EXAM GENERAL: The patient is in bed, sedated arousable but does not answer all questions HEENT: Pupils equally round. Oral cavity is pink, swollen tongue but less than yesterday. NECK: Supple. No nuchal rigidity. LUNGS: Mild congestion. No accessory muscle use. HEART: Normal S1 and S2 regular. ABDOMEN: Not distended, soft. No guarding. Bowel sounds present. EXTREMITIES: No gross edema or cyanosis. DERMATOLOGIC: Warm to touch. No signs of generalized rash. Some macular rash on the face , No open wounds, multiple tattoos. NEUROLOGIC: Drowsy , arousable, but does not answer all questions LINES: Peripheral IV looks okay. Medications: Inpatient Meds: Medications reviewed. Labs: Lab Laboratory Tests Test 04/09/20 15:53 04/10/20 04:30 04/10/20 10:02 04/10/20 11:40 Glucose (Fingerstick) 150 mg/dL (70-99) 206 mg/dL (70-99) White Blood Count 4.6 x10^3/uL (4.0-11.0) Red Blood Count 4.57 x10^6/uL (3.50-5.40) Hemoglobin 15.3 g/dL (12.0-15.5) Hematocrit 45.0 % (36.0-47.0) Mean Corpuscular Volume 99 fL (79-100) Mean Corpuscular Hemoglobin 34 pg (25-35) Mean Corpuscular Hemoglobin Concent 34 g/dL (31-37) Red Cell Distribution Width 13.5 % (11.5-14.5) Platelet Count 126 x10^3/uL (140-400) Neutrophils (%) (Auto) 91 % (31-73) Lymphocytes (%) (Auto) 8 % (24-48) Monocytes (%) (Auto) 2 % (0-9) Eosinophils (%) (Auto) 0 % (0-3) Basophils (%) (Auto) 0 % (0-3) Neutrophils # (Auto) 4.2 x10^3/uL (1.8-7.7) Lymphocytes # (Auto) 0.3 x10^3/uL (1.0-4.8) Monocytes # (Auto) 0.1 x10^3/uL (0.0-1.1) Eosinophils # (Auto) 0.0 x10^3/uL (0.0-0.7) Basophils # (Auto) 0.0 x10^3/uL (0.0-0.2) Prothrombin Time 12.6 SEC (11.7-14.0) Prothromb Time International Ratio 1.0 (0.8-1.1) Activated Partial Thromboplast Time 27 SEC (24-38) Sodium Level 137 mmol/L (136-145) Potassium Level 4.1 mmol/L (3.5-5.1) Chloride Level 102 mmol/L (98-107) Carbon Dioxide Level 19 mmol/L (21-32) Anion Gap 16 (6-14) Blood Urea Nitrogen 13 mg/dL (7-20) Creatinine 0.7 mg/dL (0.6-1.0) Estimated GFR (Cockcroft-Gault) 98.3 BUN/Creatinine Ratio 19 (6-20) Glucose Level 152 mg/dL (70-99) Calcium Level 8.4 mg/dL (8.5-10.1) Total Bilirubin 0.9 mg/dL (0.2-1.0) Aspartate Amino Transf (AST/SGOT) 55 U/L (15-37) Alanine Aminotransferase (ALT/SGPT) 61 U/L (14-59) Alkaline Phosphatase 61 U/L (46-116) Total Protein 7.4 g/dL (6.4-8.2) Albumin 3.0 g/dL (3.4-5.0) Albumin/Globulin Ratio 0.7 (1.0-1.7) Vancomycin Level Trough 12.3 mcg/mL (10.0-20.0) Vancomycin Last Dose Date 04/10/20 Vancomycin Last Dose Time 0400 Objective: Assessment: 1. Encephalopathy, postictal. 2. New-onset seizure. 3. Aspiration suspected. 4. Lactic acidosis. 5. Transaminitis. 6. Hypertension. 7. History of alcohol and drug abuse. Plan: Plan of Care Continue cefepime DC IV Vanco and acyclovir Doubt meningitis as patient has improved significantly today Likely withdrawal seizures MRI of the brain pending Neurology following Maintain aspiration precaution Follow-up labs and cultures Discussed with PEPE BUNN MD Apr 10, 2020 12:29
--- NOTE | 2020-04-10 12:54 | EEG ---
DATE OF SERVICE: 04/10/2020 EEG #: . OBJECTIVE: The patient is a 29-year-old female with new seizures. DESCRIPTION: This is a digital study. Electrodes are placed according to the international 10-20 system. Bipolar and referential montages are available. Activation procedures typically include hyperventilation and intermittent photic stimulation. INTERPRETATION: The waking background consists of 9-10 Hz, 50-100 microvolt activity. There is a large amount of beta activity artifact as the patient is still on Precedex. Sleep is not achieved. Hyperventilation is not performed. Intermittent photic stimulation is noncontributory. IMPRESSION: This electroencephalogram with the patient in a confused state shows no epileptic activity, but there is artifact due to the Precedex. Thank you for letting us help with the patient's care. RASHEED TRACY MD DR: ILENE/len JOB#: [id number] / [id number]
[2020-04-10] MEDS: LABETALOL 20 MG/4 ML DISP.SYRIN. IVP PRN (13:03)
[2020-04-10] MEDS: hydrALAZINE 20 MG/ML VIAL. IVP PRN (14:15)
--- NOTE | 2020-04-10 15:46 | NUR ---
SS following up with discharge planning. SS reviewed pt chart and discussed with pt RN. Pt is currently on room air. COVID19 negative. Pt on IV Zyvox and IV Cefepime. PT/OT ordered. NPO. ST ordered. Per RN, swelling in tongue has decreased some. Pt on CIWA protocol. Pt having confusion. Not ready for PAT team at this time. SS will continue to follow for discharge planning.
--- NOTE | 2020-04-10 16:51 | PDOC ---
JOI FRANCOIS IT INFRASTRUCTURE SPECIALIST 04/10/20 1651: CARDIO Progress Notes Date and Time Date of Service 04/10/2020 Time of Evaluation 1610 Subjective Subjective: Other (lethargic) Vitals Vitals Vital Signs Date Time Temp Pulse Resp B/P (MAP) Pulse Ox O2 Delivery O2 Flow Rate FiO2 04/10/20 16:02 82 18 142/93 (109) 95 Room Air 04/10/20 12:03 98.4 98.4 04/10/20 08:00 6.0 Weight Weight [ ] Input and Output Intake and Output Intake and Output 04/10/20 07:00 Intake Total 3949.5 ml Output Total 1195 ml Balance 2754.5 ml Intake Oral 0 ml IV Total 3949.5 ml Output Urine Total 1195 ml Laboratory Labs Laboratory Tests Test 04/10/20 04:30 04/10/20 10:02 04/10/20 11:40 04/10/20 13:54 White Blood Count 4.6 x10^3/uL (4.0-11.0) Red Blood Count 4.57 x10^6/uL (3.50-5.40) Hemoglobin 15.3 g/dL (12.0-15.5) Hematocrit 45.0 % (36.0-47.0) Mean Corpuscular Volume 99 fL (79-100) Mean Corpuscular Hemoglobin 34 pg (25-35) Mean Corpuscular Hemoglobin Concent 34 g/dL (31-37) Red Cell Distribution Width 13.5 % (11.5-14.5) Platelet Count 126 x10^3/uL (140-400) Neutrophils (%) (Auto) 91 % (31-73) Lymphocytes (%) (Auto) 8 % (24-48) Monocytes (%) (Auto) 2 % (0-9) Eosinophils (%) (Auto) 0 % (0-3) Basophils (%) (Auto) 0 % (0-3) Neutrophils # (Auto) 4.2 x10^3/uL (1.8-7.7) Lymphocytes # (Auto) 0.3 x10^3/uL (1.0-4.8) Monocytes # (Auto) 0.1 x10^3/uL (0.0-1.1) Eosinophils # (Auto) 0.0 x10^3/uL (0.0-0.7) Basophils # (Auto) 0.0 x10^3/uL (0.0-0.2) Prothrombin Time 12.6 SEC (11.7-14.0) Prothromb Time International Ratio 1.0 (0.8-1.1) Activated Partial Thromboplast Time 27 SEC (24-38) Sodium Level 137 mmol/L (136-145) Potassium Level 4.1 mmol/L (3.5-5.1) Chloride Level 102 mmol/L (98-107) Carbon Dioxide Level 19 mmol/L (21-32) Anion Gap 16 (6-14) Blood Urea Nitrogen 13 mg/dL (7-20) Creatinine 0.7 mg/dL (0.6-1.0) Estimated GFR (Cockcroft-Gault) 98.3 BUN/Creatinine Ratio 19 (6-20) Glucose Level 152 mg/dL (70-99) Calcium Level 8.4 mg/dL (8.5-10.1) Total Bilirubin 0.9 mg/dL (0.2-1.0) Aspartate Amino Transf (AST/SGOT) 55 U/L (15-37) Alanine Aminotransferase (ALT/SGPT) 61 U/L (14-59) Alkaline Phosphatase 61 U/L (46-116) Total Protein 7.4 g/dL (6.4-8.2) Albumin 3.0 g/dL (3.4-5.0) Albumin/Globulin Ratio 0.7 (1.0-1.7) Glucose (Fingerstick) 206 mg/dL (70-99) 182 mg/dL (70-99) Vancomycin Level Trough 12.3 mcg/mL (10.0-20.0) Vancomycin Last Dose Date 04/10/20 Vancomycin Last Dose Time 0400 Microbiology Micro Microbiology 04/09/20 Blood Culture - Preliminary, Resulted NO GROWTH AFTER 1 DAY 04/09/20 Urine Culture - Final, Complete Physical Exam HEENT: Neck Supple W Full Motion Chest: Symmetric LUNGS: Other (diminsihed) Heart: RRR Abdomen: Soft N/T Extremities: No Edema Neurology: confused Assessment Assessment 1. New onset seizure with tongue injury and possible fall. Neurology following 2. ?Binge alcoholism with suspected withdrawal 3. Hypomagnesemia/hypokalemia: corrected 4. Lactic acidosis 5. Hx of cocaine use: unclear last use 6. HTN urgency: possibly from withdrawal although EKG noted with LVH Remains with labile episodes Recommendations 1. PRN benzo per CIWA protocol 2. Currently NPO. Increase to TTS-2, Hydralazine IV PRN 3. Will obtain TTE prior to DC. 4. Supportive care Justicifation of Admission Dx: Justifications for Admission: Justification of Admission Dx: Yes CLAUDINE BERG MD 04/10/20 1851: CARDIO Progress Notes Assessment Assessment Patient seen and examined. Agree with ROTARY SHEAR OPERATOR's assessment and plan. BP better controlled but still labile Agree with increasing clonidine patch dose Check echo prior to DC for LVF Neuro following for new onset seizures JOI FRANCOIS APRN Apr 10, 2020 16:51 CLAUDINE BERG MD Apr 10, 2020 18:51
--- NOTE | 2020-04-10 21:58 | NUR ---
Pt found sitting up in bed, putting legs through siderails, and stating she needs her phone. Re-oriented and assisted back to bed. Precedex infusion increased to assist in pt remaining calm.
[2020-04-11] VITALS (24 sets, daily range): BP systolic 103–182; BP diastolic 66–119
[2020-04-11] MEDS: HALOPERIDOL LACTATE 5 MG/ML VIAL. IVP PRN ×2 (00:27→14:53)
[2020-04-11] MEDS: fentaNYL PF VIAL 100 MCG/2 ML VIAL IVP PRN ×2 (00:27→03:46)
[2020-04-11] MEDS: hydrALAZINE 20 MG/ML VIAL. IVP PRN ×2 (02:29→07:08)
[2020-04-11] MEDS: DEXMEDETOMIDINE 400 MCG in IV NORMAL SALINE 100ML 96 ML IV PRN ×3 (04:41→12:56)
[2020-04-11] MEDS: CEFEPIME HCL IV Push 2 GM VIAL. IVP SCH ×3 (05:43→20:44)
[2020-04-11] MEDS: HEPARIN for SUB-Q USE 5,000 UNIT/ML VIAL. SQ SCH ×3 (05:43→21:11)
[2020-04-11] MEDS: methylPREDNISolone SOD SUCC PF 125 MG/2 ML VIAL. IV SCH ×3 (05:43→20:42)
--- NOTE | 2020-04-11 07:11 | PDOC ---
PULMONARY PROGRESS NOTES DATE: 04/11/20 TIME: 07:11 Subjective PT. is on Room air, restless night ativan haldol given now sleep remains on precedex gtt Tongue swelling has improved Vitals Vital Signs Date Time Temp Pulse Resp B/P (MAP) Pulse Ox O2 Delivery O2 Flow Rate FiO2 04/11/20 07:08 84 182/106 04/11/20 06:00 17 94 Room Air 04/11/20 04:00 98.0 98.0 04/11/20 00:27 6.0 ROS: No Nausea, No Chest Pain, No Abdominal Pain, No Increase Cough General: Confused Lungs: Clear Cardiovascular: S1, S2 Abdomen: Soft, Non-tender Extremities: No Edema Skin: Warm, Dry Labs Laboratory Tests Test 04/09/20 07:30 04/09/20 09:08 04/09/20 09:10 04/09/20 09:20 White Blood Count 7.6 x10^3/uL (4.0-11.0) Red Blood Count 4.65 x10^6/uL (3.50-5.40) Hemoglobin 15.2 g/dL (12.0-15.5) Hematocrit 45.5 % (36.0-47.0) Mean Corpuscular Volume 98 fL (79-100) Mean Corpuscular Hemoglobin 33 pg (25-35) Mean Corpuscular Hemoglobin Concent 34 g/dL (31-37) Red Cell Distribution Width 13.4 % (11.5-14.5) Platelet Count 135 x10^3/uL (140-400) Neutrophils (%) (Auto) 80 % (31-73) Lymphocytes (%) (Auto) 10 % (24-48) Monocytes (%) (Auto) 8 % (0-9) Eosinophils (%) (Auto) 0 % (0-3) Basophils (%) (Auto) 1 % (0-3) Neutrophils # (Auto) 6.1 x10^3/uL (1.8-7.7) Lymphocytes # (Auto) 0.8 x10^3/uL (1.0-4.8) Monocytes # (Auto) 0.6 x10^3/uL (0.0-1.1) Eosinophils # (Auto) 0.0 x10^3/uL (0.0-0.7) Basophils # (Auto) 0.1 x10^3/uL (0.0-0.2) Fibrinogen 400 mg/dL (200-440) D-Dimer (Nica) 2.09 ug/mlFEU (0.00-0.50) Sodium Level 138 mmol/L (136-145) Potassium Level 3.4 mmol/L (3.5-5.1) Chloride Level 100 mmol/L (98-107) Carbon Dioxide Level 25 mmol/L (21-32) Anion Gap 13 (6-14) Blood Urea Nitrogen 7 mg/dL (7-20) Creatinine 0.7 mg/dL (0.6-1.0) Estimated GFR (Cockcroft-Gault) 98.3 BUN/Creatinine Ratio 10 (6-20) Glucose Level 99 mg/dL (70-99) Calcium Level 8.6 mg/dL (8.5-10.1) Magnesium Level 1.8 mg/dL (1.8-2.4) Total Bilirubin 1.6 mg/dL (0.2-1.0) Aspartate Amino Transf (AST/SGOT) 106 U/L (15-37) Alanine Aminotransferase (ALT/SGPT) 86 U/L (14-59) Alkaline Phosphatase 69 U/L (46-116) Lactate Dehydrogenase 347 U/L (81-234) C-Reactive Protein, Quantitative 0.8 mg/L (0-3.3) Total Protein 7.6 g/dL (6.4-8.2) Albumin 3.2 g/dL (3.4-5.0) Albumin/Globulin Ratio 0.7 (1.0-1.7) Procalcitonin 0.19 ng/mL (0.00-0.10) Thyroid Stimulating Hormone (TSH) 3.111 uIU/mL (0.358-3.74) Ethyl Alcohol Level < 10 mg/dL (0-10) O2 Saturation 95 % (92-99) Arterial Blood pH 7.43 (7.35-7.45) Arterial Blood pCO2 at Patient Temp 31 mmHg (35-46) Arterial Blood pO2 at Patient Temp 70 mmHg (85-108) Arterial Blood HCO3 20 mmol/L (21-28) Arterial Blood Base Excess -3 mmol/L (-3-3) FiO2 21/ra SARS-CoV-2 Antigen (Rapid) Negative (NEGATIVE) Urine Collection Type Unknown Urine Color Yellow Urine Clarity Clear Urine pH 7.0 (<5.0-8.0) Urine Specific Plaza 1.010 (1.000-1.030) Urine Protein 100 mg/dL (NEG-TRACE) Urine Glucose (UA) Negative mg/dL (NEG) Urine Ketones (Stick) 15 mg/dL (NEG) Urine Blood Large (NEG) Urine Nitrite Negative (NEG) Urine Bilirubin Negative (NEG) Urine Urobilinogen Dipstick 1.0 mg/dL (0.2 mg/dL) Urine Leukocyte Esterase Trace (NEG) Urine RBC 3-5 /HPF (0-2) Urine WBC 5-10 /HPF (0-4) Urine Bacteria Few /HPF (0-FEW) Urine Opiates Screen Neg (NEG) Urine Methadone Screen Neg (NEG) Urine Barbiturates Neg (NEG) Urine Phencyclidine Screen Neg (NEG) Urine Amphetamine/Methamphetamine Neg (NEG) Urine Benzodiazepines Screen Neg (NEG) Urine Cocaine Screen Neg (NEG) Urine Cannabinoids Screen Neg (NEG) Urine Ethyl Alcohol Neg (NEG) Test 04/09/20 11:29 04/09/20 11:43 04/09/20 15:53 04/10/20 04:30 Lactic Acid Level 0.9 mmol/L (0.4-2.0) Glucose (Fingerstick) 105 mg/dL (70-99) 150 mg/dL (70-99) White Blood Count 4.6 x10^3/uL (4.0-11.0) Red Blood Count 4.57 x10^6/uL (3.50-5.40) Hemoglobin 15.3 g/dL (12.0-15.5) Hematocrit 45.0 % (36.0-47.0) Mean Corpuscular Volume 99 fL (79-100) Mean Corpuscular Hemoglobin 34 pg (25-35) Mean Corpuscular Hemoglobin Concent 34 g/dL (31-37) Red Cell Distribution Width 13.5 % (11.5-14.5) Platelet Count 126 x10^3/uL (140-400) Neutrophils (%) (Auto) 91 % (31-73) Lymphocytes (%) (Auto) 8 % (24-48) Monocytes (%) (Auto) 2 % (0-9) Eosinophils (%) (Auto) 0 % (0-3) Basophils (%) (Auto) 0 % (0-3) Neutrophils # (Auto) 4.2 x10^3/uL (1.8-7.7) Lymphocytes # (Auto) 0.3 x10^3/uL (1.0-4.8) Monocytes # (Auto) 0.1 x10^3/uL (0.0-1.1) Eosinophils # (Auto) 0.0 x10^3/uL (0.0-0.7) Basophils # (Auto) 0.0 x10^3/uL (0.0-0.2) Prothrombin Time 12.6 SEC (11.7-14.0) Prothromb Time International Ratio 1.0 (0.8-1.1) Activated Partial Thromboplast Time 27 SEC (24-38) Sodium Level 137 mmol/L (136-145) Potassium Level 4.1 mmol/L (3.5-5.1) Chloride Level 102 mmol/L (98-107) Carbon Dioxide Level 19 mmol/L (21-32) Anion Gap 16 (6-14) Blood Urea Nitrogen 13 mg/dL (7-20) Creatinine 0.7 mg/dL (0.6-1.0) Estimated GFR (Cockcroft-Gault) 98.3 BUN/Creatinine Ratio 19 (6-20) Glucose Level 152 mg/dL (70-99) Calcium Level 8.4 mg/dL (8.5-10.1) Total Bilirubin 0.9 mg/dL (0.2-1.0) Aspartate Amino Transf (AST/SGOT) 55 U/L (15-37) Alanine Aminotransferase (ALT/SGPT) 61 U/L (14-59) Alkaline Phosphatase 61 U/L (46-116) Total Protein 7.4 g/dL (6.4-8.2) Albumin 3.0 g/dL (3.4-5.0) Albumin/Globulin Ratio 0.7 (1.0-1.7) Test 04/10/20 10:02 04/10/20 11:40 04/10/20 13:54 04/10/20 17:58 Glucose (Fingerstick) 206 mg/dL (70-99) 182 mg/dL (70-99) 151 mg/dL (70-99) Vancomycin Level Trough 12.3 mcg/mL (10.0-20.0) Vancomycin Last Dose Date 04/10/20 Vancomycin Last Dose Time 0400 Test 04/11/20 04:00 04/11/20 06:39 Glucose (Fingerstick) 189 mg/dL (70-99) 183 mg/dL (70-99) Laboratory Tests Test 04/10/20 10:02 04/10/20 11:40 04/10/20 13:54 04/10/20 17:58 Glucose (Fingerstick) 206 mg/dL (70-99) 182 mg/dL (70-99) 151 mg/dL (70-99) Vancomycin Level Trough 12.3 mcg/mL (10.0-20.0) Vancomycin Last Dose Date 04/10/20 Vancomycin Last Dose Time 0400 Test 04/11/20 04:00 04/11/20 06:39 Glucose (Fingerstick) 189 mg/dL (70-99) 183 mg/dL (70-99) Comments CXR Impression: Faintly more pronounced haziness at the infrahilar right lung and basilar left lung. This could be in part technical though atelectasis or evolving infiltrates are possible as well. Impression . IMPRESSION: 1. Respiratory distress secondary to recent seizure, combination with swollen tongue, patient bit her tongue. She is currently not having any significant respiratory distress requiring intubation, no any additional measures. 2. Seizures. 3. History of polysubstance use. 4. Lactic acidosis secondary to seizures. 5. Fever, source of fever unclear. resolved Plan . PLAN: Continue supplemental oxygen if needed, remains on room air avoid oversedation Monitor airway, tongue swelling decreased elevate hob Follow Neurology recs Seizure precautions Follow ID recs for ABX Wean precedex as tolerated DVT/GI PPX D/W PEARL CANNON MD Apr 11, 2020 07:11
--- NOTE | 2020-04-11 07:32 | EKG ---
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
[2020-04-11] MEDS: POTASSIUM CHLORIDE 20 MEQ TABLET.ER. PO SCH (08:00)
[2020-04-11] MEDS: IPRATRPIUM/ALBUTEROL 0.5/2.5MG 3 ML NEBU. NEB SCH ×4 (08:03→20:08)
[2020-04-11] MEDS: THIAMINE IM 200 MG/2 ML VIAL. IM SCH (08:29)
[2020-04-11] MEDS: FAMOTIDINE 20 MG/2 ML VIAL IVP SCH ×2 (08:29→20:43)
[2020-04-11] MEDS: DOCUSATE SODIUM 100 MG CAPSULE. PO SCH ×2 (08:30→21:00)
[2020-04-11] MEDS: levETIRAcetam 500 MG in IV DEXTROSE 5% 100ML 100 ML IV SCH ×2 (08:30→20:43)
[2020-04-11] MEDS: THIAMINE INJ 100 MG, FOLIC ACID INJ 1 MG in IV NORMAL SALINE 1000ML BAG 1,000 ML IV SCH (08:34)
--- NOTE | 2020-04-11 10:22 | PDOC ---
PROGRESS NOTES Date of Service: DATE: 04/11/20 TIME: 10:[address] Chief Complaint CT head shows no fracture of the cervical spine. Ventricular system is within normal limits without compression or hydrocephalus. No vascular territory infarction is seen. No hemorrhage is identified. CTA of the neck shows negative C-spine for acute trauma. There is patent intracranial and cervical arterial vasculature without stenosis, occlusion or aneurysm. ASSESSMENT: 1. New-onset seizures. 2. History of polysubstance abuse. 3. History of psychiatric disease associated with stress. 4. fever and chills, rule out sepsis. 5. Disconjugate gaze. possible cva 6. Lactic acidosis, which could be from alcohol withdrawal. 7. Possible aspiration. 8. Binge drinking.by hx 9. HX COCAINE ABUSE Plan: Continue IV Keppra, Precedex, thiamine. MRI of the brain. Discussed the patient's initial care with Dr. Ward. plan icu bed consult ID consult Dr. Fitzpatrick, school traffic guard. Blood cultures and urine culture. Initial covid rapid test is negative. await PCR. currently PUI. Prognosis is guarded with her disconjugate gaze. received Rocephin. , start iv cefipime, acyclovir add vancomycin pending ID consult. Sepsis bundle. Continue cefepime MRI of the brain TODAY, PENDING Neurology following 04/11 nasal trumpet out, more alert, but remains encephalopathic Continue cefepime DC IV Vanco and acyclovir restless night ativan haldol given MRI HEAD, CBC PENDING 37 MIN CC TIME TONNY FITZPATRICK MD,KRISHNA STODDARD ORDERED: BCULT Procedure Result BLOOD CULTURE Preliminary NO GROWTH AFTER 2 DAYS 33 min cc time 04/10 nasal trumpet out, more alert, but encephalopathic Continue cefepime DC IV Vanco and acyclovir 34 min cc time CLAUDINE BERG MD,TONNY CHAN,KRISHNA STODDARD ORDERED: BCULT Procedure Result BLOOD CULTURE Preliminary NO GROWTH AFTER 1 DAY History of Present Illness History of Present Illness HISTORY OF PRESENT ILLNESS: This 29-year-old female was brought to the ER in [place] with seizure activity. She apparently had been visiting a friend from [place] for a and consumed a lot of alcohol 4 days prior to admission. Her last drink was 04/07/2020. Yesterday, she complained of fever and chills and was found by the friend on the apartment floor with abnormal activity, which appeared to be due to seizures. The patient declined transfer initially and then had another seizure. She was confused in the Emergency Room and thought that she was in [place]. There was tongue swelling however. The patient had a Yg coma scale of 7. Intubation was considered, though instead a nasal trumpet was inserted. She was started on IV Keppra and a Precedex drip. She has had no further seizures. Apparently, family states that she has a history of binge alcohol consumption. PAST MEDICAL HISTORY: Significant for alcohol abuse. Other than that, no other past history is available. The patient is sedated and unable to give an adequate history. There are no family members present. She is hypertensive. FAMILY HISTORY: Positive for hypertension. SOCIAL HISTORY: High alcohol consumption. Occasional tobacco use. Occasional cocaine abuse. REVIEW OF SYSTEMS: The patient is unable to provide history due to sedation, altered mental status. Vitals Vitals Vital Signs Date Time Temp Pulse Resp B/P (MAP) Pulse Ox O2 Delivery O2 Flow Rate FiO2 04/11/20 10:00 68 124/86 (99) 97 Room Air 04/11/20 09:00 17 04/11/20 08:39 98.4 98.4 04/11/20 00:27 6.0 Physical Exam Physical Exam GENERAL: The patient is in bed, sedated arousable but does not answer all questions HEENT: Pupils equally round. Oral cavity is pink, swollen tongue but less than yesterday. NECK: Supple. No nuchal rigidity. LUNGS: Mild congestion. No accessory muscle use. HEART: Normal S1 and S2 regular. ABDOMEN: Not distended, soft. No guarding. Bowel sounds present. EXTREMITIES: No gross edema or cyanosis. DERMATOLOGIC: Warm to touch. No signs of generalized rash. Some macular rash on the face , No open wounds, multiple tattoos. NEUROLOGIC: Drowsy , arousable, but does not answer all questions LINES: Peripheral IV looks okay. General: Alert, Cooperative, No acute distress Heart: Regular rate (SR), Normal S1, Normal S2, No murmurs Lungs: Clear Abdomen: Normal bowel sounds, Soft Extremities: No clubbing, No cyanosis, No edema Skin: Other (tongue injury) Labs LABS Laboratory Tests Test 04/10/20 11:40 04/10/20 13:54 04/10/20 17:58 04/11/20 04:00 Vancomycin Level Trough 12.3 mcg/mL (10.0-20.0) Vancomycin Last Dose Date 04/10/20 Vancomycin Last Dose Time 0400 Glucose (Fingerstick) 182 mg/dL (70-99) 151 mg/dL (70-99) 189 mg/dL (70-99) Test 04/11/20 06:39 Glucose (Fingerstick) 183 mg/dL (70-99) Comment Review of Relevant I have reviewed the following items celsa (where applicable) has been applied. Labs Laboratory Tests Test 04/09/20 11:29 04/09/20 11:43 04/09/20 15:53 04/10/20 04:30 Lactic Acid Level 0.9 mmol/L (0.4-2.0) Glucose (Fingerstick) 105 mg/dL (70-99) 150 mg/dL (70-99) White Blood Count 4.6 x10^3/uL (4.0-11.0) Red Blood Count 4.57 x10^6/uL (3.50-5.40) Hemoglobin 15.3 g/dL (12.0-15.5) Hematocrit 45.0 % (36.0-47.0) Mean Corpuscular Volume 99 fL (79-100) Mean Corpuscular Hemoglobin 34 pg (25-35) Mean Corpuscular Hemoglobin Concent 34 g/dL (31-37) Red Cell Distribution Width 13.5 % (11.5-14.5) Platelet Count 126 x10^3/uL (140-400) Neutrophils (%) (Auto) 91 % (31-73) Lymphocytes (%) (Auto) 8 % (24-48) Monocytes (%) (Auto) 2 % (0-9) Eosinophils (%) (Auto) 0 % (0-3) Basophils (%) (Auto) 0 % (0-3) Neutrophils # (Auto) 4.2 x10^3/uL (1.8-7.7) Lymphocytes # (Auto) 0.3 x10^3/uL (1.0-4.8) Monocytes # (Auto) 0.1 x10^3/uL (0.0-1.1) Eosinophils # (Auto) 0.0 x10^3/uL (0.0-0.7) Basophils # (Auto) 0.0 x10^3/uL (0.0-0.2) Prothrombin Time 12.6 SEC (11.7-14.0) Prothromb Time International Ratio 1.0 (0.8-1.1) Activated Partial Thromboplast Time 27 SEC (24-38) Sodium Level 137 mmol/L (136-145) Potassium Level 4.1 mmol/L (3.5-5.1) Chloride Level 102 mmol/L (98-107) Carbon Dioxide Level 19 mmol/L (21-32) Anion Gap 16 (6-14) Blood Urea Nitrogen 13 mg/dL (7-20) Creatinine 0.7 mg/dL (0.6-1.0) Estimated GFR (Cockcroft-Gault) 98.3 BUN/Creatinine Ratio 19 (6-20) Glucose Level 152 mg/dL (70-99) Calcium Level 8.4 mg/dL (8.5-10.1) Total Bilirubin 0.9 mg/dL (0.2-1.0) Aspartate Amino Transf (AST/SGOT) 55 U/L (15-37) Alanine Aminotransferase (ALT/SGPT) 61 U/L (14-59) Alkaline Phosphatase 61 U/L (46-116) Total Protein 7.4 g/dL (6.4-8.2) Albumin 3.0 g/dL (3.4-5.0) Albumin/Globulin Ratio 0.7 (1.0-1.7) Test 04/10/20 10:02 04/10/20 11:40 04/10/20 13:54 04/10/20 17:58 Glucose (Fingerstick) 206 mg/dL (70-99) 182 mg/dL (70-99) 151 mg/dL (70-99) Vancomycin Level Trough 12.3 mcg/mL (10.0-20.0) Vancomycin Last Dose Date 04/10/20 Vancomycin Last Dose Time 0400 Test 04/11/20 04:00 04/11/20 06:39 Glucose (Fingerstick) 189 mg/dL (70-99) 183 mg/dL (70-99) Laboratory Tests Test 04/10/20 11:40 04/10/20 13:54 04/10/20 17:58 04/11/20 04:00 Vancomycin Level Trough 12.3 mcg/mL (10.0-20.0) Vancomycin Last Dose Date 04/10/20 Vancomycin Last Dose Time 0400 Glucose (Fingerstick) 182 mg/dL (70-99) 151 mg/dL (70-99) 189 mg/dL (70-99) Test 04/11/20 06:39 Glucose (Fingerstick) 183 mg/dL (70-99) Microbiology 04/09/20 Blood Culture - Preliminary, Resulted NO GROWTH AFTER 1 DAY 04/09/20 Urine Culture - Final, Complete Medications Current Medications Lorazepam (Ativan) 4 mg PRN Q1HR PRN PO For CIWA 8-14; Start 04/08/20 at 23:30 Lorazepam (Ativan) 8 mg PRN Q1HR PRN PO For CIWA 15 or greater; Start 04/08/20 at 23:30 Lorazepam (Ativan Inj) 2 mg PRN Q1HR PRN IV For CIWA 8-14 Last administered on 04/10/20at 19:54; Start 04/08/20 at 23:30 Lorazepam (Ativan Inj) 4 mg PRN Q1HR PRN IV For CIWA 15 or greater Last a dministered on 04/11/20at 06:50; Start 04/08/20 at 23:30 Haloperidol Lactate (Haldol Inj) 5 mg PRN Q4HRS PRN IVP Hallucinatns,Co nfusn,Delirium Last administered on 04/11/20at 00:27; Start 04/08/20 at 23:30 Clonidine HCl (Catapres) 0.1 mg PRN Q1HR PRN PO SBP > 180 OR DBP > 100, MRX3 Last administered on 04/09/20at 00:15; Start 04/08/20 at 23:30 Lorazepam (Ativan Inj) 2 mg PRN Q15MIN PRN IV SEE COMMENTS Last administered on 04/08/20at 23:48; Start 04/08/20 at 23:30 Lorazepam (Ativan Inj) 4 mg PRN Q15MIN PRN IV SEE COMMENTS Last administered on 04/09/20at 02:34; Start 04/08/20 at 23:30 Levetiracetam 500 mg/Dextrose 105 ml @ 420 mls/hr Q12HR IV Last administered on 04/11/20at 08:30; Start 04/09/20 at 09:00 Ringer's Solution 1,000 ml @ 100 mls/hr Q10H IV Last administered on 04/09/20at 08:57; Start 04/08/20 at 23:30; Stop 04/09/20 at 12:09; Status DC Labetalol HCl (Normodyne Iv Push) 10 mg PRN Q2HRS PRN IVP HYPERTENSION-1ST CHOICE Last administered on 04/10/20at 13:03; Start 04/09/20 at 03:00 Dexmedetomidine HCl 400 mcg/ Sodium Chloride 100 ml @ 0 mls/hr CONT PRN IV PER PROTOCOL Last administered on 04/11/20at 08:31; Start 04/09/20 at 03:00 Sodium Chloride 500 ml @ 500 mls/hr 1X PRN PRN IV SEE COMMENTS; Start 04/09/20 at 03:00 Atropine Sulfate (ATROPINE 0.5mg SYRINGE) 0.5 mg PRN Q5MIN PRN IV SEE COMMENTS; Start 04/09/20 at 03:00 Sodium Chloride 1,000 ml @ 50 mls/hr Q20H IV ; Start 04/09/20 at 08:45; Stop 04/09/20 at 09:01; Status DC Thiamine HCl (Thiamine Im) 100 mg DAILY IM Last administered on 04/11/20at 08 :29; Start 04/09/20 at 10:00 Hydralazine HCl (Apresoline Inj) 10 mg PRN Q4HRS PRN IVP ELEVATED BP, SEE COMMENTS Last administered on 04/11/20at 07:08; Start 04/09/20 at 10:15 Amlodipine Besylate (Norvasc) 5 mg DAILY PO ; Start 04/09/20 at 10:15 Ceftriaxone Sodium (Rocephin) 1 gm Q24H IVP Last administered on 04/09/20at 10:53; Start 04/09/20 at 11:00; Stop 04/09/20 at 12:06; Status DC Potassium Chloride (Klor-Con) 40 meq 1X ONCE PO ; Start 04/09/20 at 10:15; Stop 04/09/20 at 10:16; Status DC Potassium Chloride (Klor-Con) 20 meq DAILYWBKFT PO ; Start 04/10/20 at 08:00 Hydralazine HCl (Apresoline Inj) 10 mg PRN Q4HRS PRN IVP ELEVATED BP, SEE COMMENTS; Start 04/09/20 at 10:15; Status UNV Clonidine HCl (Catapres Tts-1) 1 patch WEEKLY TD Last administered on 04/09/20at 10:57; Start 04/09/20 at 11:00; Stop 04/10/20 at 16:49; Status DC Acetaminophen (Tylenol) 650 mg PRN Q6HRS PRN PO Headaches, Temp > 101.5'; Start 04/09/20 at 10:15 Lorazepam (Ativan Inj) 0.5 mg PRN Q6HRS PRN IVP ANXIETY / AGITATION; Start at 10:15 Ondansetron HCl (Zofran) 4 mg PRN Q6HRS PRN IVP NAUSEA/VOMITING; Start 04/09/20 at 10:15 Prochlorperazine (Compazine) 25 mg PRN Q12HR PRN IN NAUSEA/VOMITING; Start 04/09/20 at 10:15 Al Hydroxide/Mg Hydroxide (Mylanta Plus Xs) 30 ml PRN Q3HRS PRN PO HEARTBURN / GAS; Start 04/09/20 at 10:15 Calcium Carbonate/ Glycine (Tums) 500 mg PRN Q3HRS PRN PO HEARTBURN / GAS; Start 04/09/20 at 10:15 Famotidine (Pepcid Vial) 20 mg BID IVP Last administered on 04/11/20at 08:29; Start 04/09/20 at 21:00 Heparin Sodium (Porcine) (Heparin Sodium) 5,000 unit Q8HRS SQ Last administered on 04/11/20at 05:43; Start 04/09/20 at 14:00 Sodium Chloride (Normal Saline Flush) 3 ml QSHIFT PRN IV AFTER MEDS AND BLOOD DRAWS; Start 04/09/20 at 10:15 Docusate Sodium (Colace) 100 mg BID PO ; Start 04/09/20 at 21:00 Magnesium Hydroxide (Milk Of Magnesia) 2,400 mg PRN Q12HR PRN PO CONSTIPATION; Start 04/09/20 at 10:15 Vancomycin HCl (Vanco Per Pharmacy) 1 each PRN DAILY PRN MC SEE COMMENTS Last administered on 04/09/20at 13:43; Start 04/09/20 at 11:15; Stop 04/10/20 at 13:16; Status DC Sodium Chloride 1,000 ml @ 1,710 mls/hr Q36M IV ; Start 04/09/20 at 11:30; Stop 04/09/20 at 11:27; Status DC Sodium Chloride 500 ml @ 1,000 mls/hr PRN Q30MIN PRN IV SEE COMMENTS; Start 04/09/20 at 11:30; Stop 04/09/20 at 12:13; Status DC Albuterol/ Ipratropium (Duoneb) 3 ml RTQID NEB Last administered on 04/11/20at 08:03; Start 04/09/20 at 12:00 Sodium Chloride 1,000 ml @ 1,710 mls/hr Q36M PRN IV SEE COMMENTS; Start 04/09/20 at 11:30 Vancomycin HCl 1.75 gm/Sodium Chloride 500 ml @ 250 mls/hr 1X ONCE IV Last administered on 04/09/20at 12:06; Start 04/09/20 at 12:00; Stop 04/09/20 at 13:59; Status DC Acyclovir Sodium 575 mg/Dextrose 111.5 ml @ 111.5 mls/ hr Q8HRS IV Last administered on 04/10/20at 06:44; Start 04/09/20 at 14:00; Stop 04/10/20 at 12:30; Status DC Cefepime HCl (Maxipime) 2 gm Q8HRS IVP Last administered on 04/11/20at 05:43; Start 04/09/20 at 14:00 Potassium Chloride/Sodium Chloride 1,000 ml @ 100 mls/hr Q10H IV Last admini stered on 04/09/20at 13:08; Start 04/09/20 at 12:15; Stop 04/09/20 at 22:14; Status DC Ringer's Solution 1,000 ml @ 100 mls/hr Q10H IV ; Start 04/09/20 at 23:00; Stop 04/10/20 at 01:06; Status DC Methylprednisolone Sodium Succinate (SOLU-Medrol 125MG VIAL) 100 mg Q8HRS IV Last administered on 04/11/20at 05:43; Start 04/09/20 at 14:00 Vancomycin HCl 1 gm/Sodium Chloride 250 ml @ 250 mls/hr Q8H IV Last administered on 04/10/20at 04:57; Start 04/09/20 at 20:00; Stop 04/10/20 at 12:30; Status DC Vancomycin HCl (Vancomycin Trough Level) 1 each 1X ONCE MC Last administered on 04/10/20at 11:30; Start 04/10/20 at 11:30; Stop 04/10/20 at 11:31; Status DC Acetaminophen (Tylenol Supp) 650 mg PRN Q6HRS PRN IN MILD PAIN / TEMP > 100.3'F Last administered on 04/09/20at 19:42; Start 04/09/20 at 19:30 Fentanyl Citrate (Fentanyl 2ml Vial) 50 mcg PRN Q2HR PRN IVP SEVERE PAIN 7-10 Last administered on 04/11/20at 03:46; Start 04/09/20 at 22:45 Thiamine HCl 100 mg/Folic Acid 1 mg/Sodium Chloride 1,001.2 ml @ 100.012 mls/hr DAILY IV Last administered on 04/11/20at 08:34; Start 04/10/20 at 12:00 Succinylcholine Chloride (Anectine) 100 mg 1X ONCE IV ; Start 04/10/20 at 12:00; Stop 04/10/20 at 11:55; Status DC Etomidate (Amidate) 10 mg 1X ONCE IV ; Start 04/10/20 at 12:00; Stop 04/10/20 at 12:01; Status Cancel Linezolid/Dextrose 300 ml @ 300 mls/hr Q12HR IV Last administered on 04/11/20at 08:30; Start 04/10/20 at 13:00 Clonidine HCl (Catapres Tts-2) 1 patch Fr@0900 TD ; Start 04/17/20 at 09:00 Vitals/I & O Vital Sign - Last 24 Hours 04/10/20 04/10/20 04/10/20 04/10/20 11:02 11:49 12:03 13:01 Temp 98.4 98.4 Pulse 81 73 73 Resp 22 20 20 B/P (MAP) 154/107 (123) 154/105 (121) 183/120 (141) Pulse Ox 95 97 96 O2 Delivery Room Air Room Air Room Air Room Air 04/10/20 04/10/20 04/10/20 04/10/20 13:03 14:07 14:15 15:00 Pulse 70 72 75 93 Resp 22 20 B/P (MAP) 183/120 177/118 (137) 177/118 138/83 (101) Pulse Ox 95 96 O2 Delivery Room Air Room Air 04/10/20 04/10/20 04/10/20 04/10/20 15:50 15:59 16:02 17:05 Pulse 82 77 Resp 18 20 B/P (MAP) 142/93 (109) 153/91 (111) Pulse Ox 97 95 95 O2 Delivery Room Air Room Air Room Air Room Air 04/10/20 04/10/20 04/10/20 04/10/20 18:15 19:00 20:00 20:08 Temp 98.1 98.1 Pulse 70 78 68 Resp 20 15 16 B/P (MAP) 149/99 (116) 162/114 (130) 151/98 (115) Pulse Ox 96 96 95 O2 Delivery Room Air Room Air Room Air Room Air 04/10/20 04/10/20 04/10/20 04/10/20 20:43 21:00 22:00 23:00 Pulse 66 60 72 Resp 20 21 19 B/P (MAP) 163/111 (128) 147/90 (109) 160/108 (125) Pulse Ox 98 98 94 95 O2 Delivery Room Air Room Air Room Air Room Air 04/11/20 04/11/20 04/11/20 04/11/20 00:00 00:00 00:05 00:27 Temp 98.3 98.3 Pulse 58 Resp 23 B/P (MAP) 176/103 (127) Pulse Ox 94 94 O2 Delivery Room Air Room Air Room Air O2 Flow Rate 6.0 04/11/20 04/11/20 04/11/20 04/11/20 00:57 01:00 02:00 02:29 Pulse 60 84 58 Resp 19 19 23 B/P (MAP) 163/119 (134) 148/88 (108) 176/103 Pulse Ox 94 94 93 O2 Delivery Room Air Room Air Room Air 04/11/20 04/11/20 04/11/20 04/11/20 03:00 03:46 04:00 04:00 Temp 98.0 98.0 Pulse 72 76 Resp 14 19 21 B/P (MAP) 143/88 (106) 153/77 (102) Pulse Ox 96 93 94 O2 Delivery Room Air Room Air Room Air 04/11/20 04/11/20 04/11/20 04/11/20 04:00 04:23 05:00 06:00 Pulse 68 84 Resp 18 13 17 B/P (MAP) 140/97 (111) 154/99 (117) Pulse Ox 94 94 94 O2 Delivery Room Air Room Air Room Air Room Air 04/11/20 04/11/20 04/11/20 04/11/20 07:08 07:31 08:00 08:05 Temp 98.4 98.4 Pulse 84 79 Resp 18 B/P (MAP) 182/106 182/106 (131) Pulse Ox 96 98 O2 Delivery Room Air Room Air Room Air 04/11/20 04/11/20 04/11/20 04/11/20 08:30 08:39 09:00 10:00 Temp 98.4 98.4 Pulse 79 78 82 68 Resp 18 17 B/P (MAP) 182/106 109/83 (92) 103/69 (80) 124/86 (99) Pulse Ox 96 94 97 O2 Delivery Room Air Room Air Room Air Intake and Output 04/10/20 04/10/20 04/11/20 15:00 23:00 07:00 Intake Total 516.5 ml 0 ml 0 ml Output Total 380 ml 525 ml 1600 ml Balance 136.5 ml -525 ml -1600 ml Justicifation of Admission Dx: Justifications for Admission: Justification of Admission Dx: Yes BRISA GARRETT MD Apr 11, 2020 10:22
--- NOTE | 2020-04-11 12:10 | PDOC ---
Infectious Disease Note Subjective: Subjective Patient sedated No more seizures No fevers reported Vital Signs: Vital Signs Vital Signs Date Time Temp Pulse Resp B/P (MAP) Pulse Ox O2 Delivery O2 Flow Rate FiO2 04/11/20 12:03 96 Room Air 04/11/20 11:11 97.6 73 17 124/78 (93) 97.6 04/11/20 00:27 6.0 Physical Exam: PHYSICAL EXAM GENERAL: The patient is in bed, sedated arousable but does not answer all questions HEENT: Pupils equally round. Oral cavity is pink, swollen tongue but less than yesterday. NECK: Supple. No nuchal rigidity. LUNGS: Mild congestion. No accessory muscle use. HEART: Normal S1 and S2 regular. ABDOMEN: Not distended, soft. No guarding. Bowel sounds present. EXTREMITIES: No gross edema or cyanosis. DERMATOLOGIC: Warm to touch. No signs of generalized rash. Some macular rash on the face , No open wounds, multiple tattoos. NEUROLOGIC: Drowsy , arousable, but does not answer all questions LINES: Peripheral IV looks okay. Medications: Inpatient Meds: Medications reviewed. Labs: Lab Laboratory Tests Test 04/10/20 13:54 04/10/20 17:58 04/11/20 04:00 04/11/20 06:39 Glucose (Fingerstick) 182 mg/dL (70-99) 151 mg/dL (70-99) 189 mg/dL (70-99) 183 mg/dL (70-99) Objective: Assessment: 1. Encephalopathy, postictal. Improving slowly 2. New-onset seizure. Stable 3. Aspiration suspected. 4. Lactic acidosis. 5. Transaminitis. 6. Hypertension. 7. History of alcohol and drug abuse. Plan: Plan of Care Continue cefepime MRI of the brain pending Neurology following Maintain aspiration precaution Follow-up labs and cultures Discussed with PEPE BUNN MD Apr 11, 2020 12:09
[2020-04-11 16:43] LABS: BASO % 0 % (0-3); EOS % 0 % (0-3); HEMATOCRIT 45.2 % (36.0-47.0); HEMOGLOBIN 15.4 g/dL (12.0-15.5); LYMPH # 0.4 x10^3/uL (1.0-4.8); LYMPH % 5 % (24-48); MEAN CORPUSCULAR HEMOGLOBIN 33 pg (25-35); MEAN CORPUSCULAR HGB CONC 34 g/dL (31-37); MEAN CORPUSCULAR VOLUME 98 fL (79-100); MONO # 0.3 x10^3/uL (0.0-1.1); MONO % 4 % (0-9); NEUT # 7.5 x10^3/uL (1.8-7.7); NEUT % 91 % (31-73); PLATELET COUNT 161 x10^3/uL (140-400); RED BLOOD COUNT 4.62 x10^6/uL (3.50-5.40); RED CELL DISTRIBUTION WIDTH 13.5 % (11.5-14.5); WHITE BLOOD COUNT 8.3 x10^3/uL (4.0-11.0)
[2020-04-11 17:10] LABS: ALBUMIN 2.8 g/dL (3.4-5.0); ALBUMIN/GLOBULIN RATIO 0.7 (1.0-1.7); CALCIUM 8.3 mg/dL (8.5-10.1); CREATININE 0.7 mg/dL (0.6-1.0); GFR 98.3; POTASSIUM 3.8 mmol/L (3.5-5.1); TOTAL BILIRUBIN 1.3 mg/dL (0.2-1.0); TOTAL PROTEIN 6.7 g/dL (6.4-8.2)
[2020-04-11 17:12] LABS: % BANDS 4 % (0-9); % LYMPHS 4 % (24-48); % SEGS 92 % (35-66); PLT ESTIMATE ADEQUATE (ADEQUATE)
--- NOTE | 2020-04-11 19:32 | RAD ---
EXAM: MRI Brain without IV contrast INDICATION: Reason: seizures, dysconjugate gaze / Spl. Instructions: / History: . TECHNIQUE: Sagittal and axial T1-w and axial T2-w, FLAIR, GRE, coronal T2-w, and diffusion-w images o f the brain with ADC maps without IV contrast. COMPARISON: Noncontrast head CT of 04/08/2020 FINDINGS: BRAIN PARENCHYMA: No evidence of hyperacute, acute, or early subacute infarction. There is subcortica l white matter FLAIR signal hyperintensity in the bilateral occipital lobes and to lesser extent in t he parietal and posterior frontal lobes. VENTRICLES & EXTRA-AXIAL SPACES: Ventricles are within normal limits. Basilar cisterns are patent. No abnormal extra-axial fluid or mass. VESSELS: Normal signal voids in the larger intracranial vessels. ORBITS: Orbital contents are unremarkable. SINUSES: Paranasal sinuses are clear. Tympanic cavities and mastoid air cells are clear. OSSEOUS & SOFT TISSUES: Marrow signal is within normal limits. IMPRESSION: Marked signal abnormalities in the subcortical white matter primarily in the occipital lobes is anjana tible with posterior reversible encephalopathy in the appropriate clinical context. No evidence of ac kole infarct, hemorrhage or mass effect. Electronically signed by: Andrey Ramirez MD (04/11/2020 7:30 PM) [facility] [place]
[2020-04-12] VITALS (16 sets, daily range): BP systolic 110–179; BP diastolic 78–118
[2020-04-12] MEDS: hydrALAZINE 20 MG/ML VIAL. IVP PRN ×2 (01:10→09:24)
[2020-04-12] MEDS: methylPREDNISolone SOD SUCC PF 125 MG/2 ML VIAL. IV SCH ×3 (04:32→21:22)
[2020-04-12] MEDS: CEFEPIME HCL IV Push 2 GM VIAL. IVP SCH ×3 (04:32→21:23)
[2020-04-12] MEDS: HEPARIN for SUB-Q USE 5,000 UNIT/ML VIAL. SQ SCH ×3 (04:58→21:31)
[2020-04-12 05:03] LABS: BASO % 0 % (0-3); EOS % 0 % (0-3); HEMATOCRIT 44.1 % (36.0-47.0); HEMOGLOBIN 14.9 g/dL (12.0-15.5); LYMPH # 0.7 x10^3/uL (1.0-4.8); LYMPH % 7 % (24-48); MEAN CORPUSCULAR HEMOGLOBIN 33 pg (25-35); MEAN CORPUSCULAR HGB CONC 34 g/dL (31-37); MEAN CORPUSCULAR VOLUME 99 fL (79-100); MONO # 0.5 x10^3/uL (0.0-1.1); MONO % 5 % (0-9); NEUT % 87 % (31-73); PLATELET COUNT 209 x10^3/uL (140-400); RED BLOOD COUNT 4.47 x10^6/uL (3.50-5.40); RED CELL DISTRIBUTION WIDTH 13.2 % (11.5-14.5); WHITE BLOOD COUNT 9.2 x10^3/uL (4.0-11.0)
[2020-04-12 05:24] LABS: ALBUMIN 2.9 g/dL (3.4-5.0); ALBUMIN/GLOBULIN RATIO 0.7 (1.0-1.7); CALCIUM 8.4 mg/dL (8.5-10.1); CREATININE 0.7 mg/dL (0.6-1.0); GFR 98.3; POTASSIUM 3.6 mmol/L (3.5-5.1); TOTAL BILIRUBIN 1.3 mg/dL (0.2-1.0); TOTAL PROTEIN 6.8 g/dL (6.4-8.2)
--- NOTE | 2020-04-12 07:21 | PDOC ---
PULMONARY PROGRESS NOTES DATE: 04/12/20 TIME: 07:20 Subjective PT. is on Room air, denies sob cough off precedex gtt Tongue swelling has improved Vitals Vital Signs Date Time Temp Pulse Resp B/P (MAP) Pulse Ox O2 Delivery O2 Flow Rate FiO2 04/12/20 07:00 97.8 112 16 127/90 (102) 92 Room Air 97.8 04/11/20 23:47 6.0 ROS: No Nausea, No Chest Pain, No Abdominal Pain, No Increase Cough General: Confused Lungs: Clear Cardiovascular: S1, S2 Abdomen: Soft, Non-tender Extremities: No Edema Skin: Warm, Dry Labs Laboratory Tests Test 04/10/20 10:02 04/10/20 11:40 04/10/20 13:54 04/10/20 17:58 Glucose (Fingerstick) 206 mg/dL (70-99) 182 mg/dL (70-99) 151 mg/dL (70-99) Vancomycin Level Trough 12.3 mcg/mL (10.0-20.0) Vancomycin Last Dose Date 04/10/20 Vancomycin Last Dose Time 0400 Test 04/11/20 04:00 04/11/20 06:39 04/11/20 16:05 04/11/20 17:34 Glucose (Fingerstick) 189 mg/dL (70-99) 183 mg/dL (70-99) 145 mg/dL (70-99) White Blood Count 8.3 x10^3/uL (4.0-11.0) Red Blood Count 4.62 x10^6/uL (3.50-5.40) Hemoglobin 15.4 g/dL (12.0-15.5) Hematocrit 45.2 % (36.0-47.0) Mean Corpuscular Volume 98 fL (79-100) Mean Corpuscular Hemoglobin 33 pg (25-35) Mean Corpuscular Hemoglobin Concent 34 g/dL (31-37) Red Cell Distribution Width 13.5 % (11.5-14.5) Platelet Count 161 x10^3/uL (140-400) Neutrophils (%) (Auto) 91 % (31-73) Lymphocytes (%) (Auto) 5 % (24-48) Monocytes (%) (Auto) 4 % (0-9) Eosinophils (%) (Auto) 0 % (0-3) Basophils (%) (Auto) 0 % (0-3) Neutrophils # (Auto) 7.5 x10^3/uL (1.8-7.7) Lymphocytes # (Auto) 0.4 x10^3/uL (1.0-4.8) Monocytes # (Auto) 0.3 x10^3/uL (0.0-1.1) Eosinophils # (Auto) 0.0 x10^3/uL (0.0-0.7) Basophils # (Auto) 0.0 x10^3/uL (0.0-0.2) Segmented Neutrophils % 92 % (35-66) Band Neutrophils % 4 % (0-9) Lymphocytes % 4 % (24-48) Platelet Estimate Adequate (ADEQUATE) Sodium Level 136 mmol/L (136-145) Potassium Level 3.8 mmol/L (3.5-5.1) Chloride Level 105 mmol/L (98-107) Carbon Dioxide Level 21 mmol/L (21-32) Anion Gap 10 (6-14) Blood Urea Nitrogen 13 mg/dL (7-20) Creatinine 0.7 mg/dL (0.6-1.0) Estimated GFR (Cockcroft-Gault) 98.3 BUN/Creatinine Ratio 19 (6-20) Glucose Level 144 mg/dL (70-99) Calcium Level 8.3 mg/dL (8.5-10.1) Total Bilirubin 1.3 mg/dL (0.2-1.0) Aspartate Amino Transf (AST/SGOT) 32 U/L (15-37) Alanine Aminotransferase (ALT/SGPT) 45 U/L (14-59) Alkaline Phosphatase 51 U/L (46-116) Total Protein 6.7 g/dL (6.4-8.2) Albumin 2.8 g/dL (3.4-5.0) Albumin/Globulin Ratio 0.7 (1.0-1.7) Test 04/12/20 04:45 White Blood Count 9.2 x10^3/uL (4.0-11.0) Red Blood Count 4.47 x10^6/uL (3.50-5.40) Hemoglobin 14.9 g/dL (12.0-15.5) Hematocrit 44.1 % (36.0-47.0) Mean Corpuscular Volume 99 fL (79-100) Mean Corpuscular Hemoglobin 33 pg (25-35) Mean Corpuscular Hemoglobin Concent 34 g/dL (31-37) Red Cell Distribution Width 13.2 % (11.5-14.5) Platelet Count 209 x10^3/uL (140-400) Neutrophils (%) (Auto) 87 % (31-73) Lymphocytes (%) (Auto) 7 % (24-48) Monocytes (%) (Auto) 5 % (0-9) Eosinophils (%) (Auto) 0 % (0-3) Basophils (%) (Auto) 0 % (0-3) Neutrophils # (Auto) 8.0 x10^3/uL (1.8-7.7) Lymphocytes # (Auto) 0.7 x10^3/uL (1.0-4.8) Monocytes # (Auto) 0.5 x10^3/uL (0.0-1.1) Eosinophils # (Auto) 0.0 x10^3/uL (0.0-0.7) Basophils # (Auto) 0.0 x10^3/uL (0.0-0.2) Sodium Level 136 mmol/L (136-145) Potassium Level 3.6 mmol/L (3.5-5.1) Chloride Level 102 mmol/L (98-107) Carbon Dioxide Level 23 mmol/L (21-32) Anion Gap 11 (6-14) Blood Urea Nitrogen 9 mg/dL (7-20) Creatinine 0.7 mg/dL (0.6-1.0) Estimated GFR (Cockcroft-Gault) 98.3 BUN/Creatinine Ratio 13 (6-20) Glucose Level 140 mg/dL (70-99) Calcium Level 8.4 mg/dL (8.5-10.1) Total Bilirubin 1.3 mg/dL (0.2-1.0) Aspartate Amino Transf (AST/SGOT) 35 U/L (15-37) Alanine Aminotransferase (ALT/SGPT) 44 U/L (14-59) Alkaline Phosphatase 50 U/L (46-116) Total Protein 6.8 g/dL (6.4-8.2) Albumin 2.9 g/dL (3.4-5.0) Albumin/Globulin Ratio 0.7 (1.0-1.7) Laboratory Tests Test 04/11/20 16:05 04/11/20 17:34 04/12/20 04:45 White Blood Count 8.3 x10^3/uL (4.0-11.0) 9.2 x10^3/uL (4.0-11.0) Red Blood Count 4.62 x10^6/uL (3.50-5.40) 4.47 x10^6/uL (3.50-5.40) Hemoglobin 15.4 g/dL (12.0-15.5) 14.9 g/dL (12.0-15.5) Hematocrit 45.2 % (36.0-47.0) 44.1 % (36.0-47.0) Mean Corpuscular Volume 98 fL (79-100) 99 fL (79-100) Mean Corpuscular Hemoglobin 33 pg (25-35) 33 pg (25-35) Mean Corpuscular Hemoglobin Concent 34 g/dL (31-37) 34 g/dL (31-37) Red Cell Distribution Width 13.5 % (11.5-14.5) 13.2 % (11.5-14.5) Platelet Count 161 x10^3/uL (140-400) 209 x10^3/uL (140-400) Neutrophils (%) (Auto) 91 % (31-73) 87 % (31-73) Lymphocytes (%) (Auto) 5 % (24-48) 7 % (24-48) Monocytes (%) (Auto) 4 % (0-9) 5 % (0-9) Eosinophils (%) (Auto) 0 % (0-3) 0 % (0-3) Basophils (%) (Auto) 0 % (0-3) 0 % (0-3) Neutrophils # (Auto) 7.5 x10^3/uL (1.8-7.7) 8.0 x10^3/uL (1.8-7.7) Lymphocytes # (Auto) 0.4 x10^3/uL (1.0-4.8) 0.7 x10^3/uL (1.0-4.8) Monocytes # (Auto) 0.3 x10^3/uL (0.0-1.1) 0.5 x10^3/uL (0.0-1.1) Eosinophils # (Auto) 0.0 x10^3/uL (0.0-0.7) 0.0 x10^3/uL (0.0-0.7) Basophils # (Auto) 0.0 x10^3/uL (0.0-0.2) 0.0 x10^3/uL (0.0-0.2) Segmented Neutrophils % 92 % (35-66) Band Neutrophils % 4 % (0-9) Lymphocytes % 4 % (24-48) Platelet Estimate Adequate (ADEQUATE) Sodium Level 136 mmol/L (136-145) 136 mmol/L (136-145) Potassium Level 3.8 mmol/L (3.5-5.1) 3.6 mmol/L (3.5-5.1) Chloride Level 105 mmol/L (98-107) 102 mmol/L (98-107) Carbon Dioxide Level 21 mmol/L (21-32) 23 mmol/L (21-32) Anion Gap 10 (6-14) 11 (6-14) Blood Urea Nitrogen 13 mg/dL (7-20) 9 mg/dL (7-20) Creatinine 0.7 mg/dL (0.6-1.0) 0.7 mg/dL (0.6-1.0) Estimated GFR (Cockcroft-Gault) 98.3 98.3 BUN/Creatinine Ratio 19 (6-20) 13 (6-20) Glucose Level 144 mg/dL (70-99) 140 mg/dL (70-99) Calcium Level 8.3 mg/dL (8.5-10.1) 8.4 mg/dL (8.5-10.1) Total Bilirubin 1.3 mg/dL (0.2-1.0) 1.3 mg/dL (0.2-1.0) Aspartate Amino Transf (AST/SGOT) 32 U/L (15-37) 35 U/L (15-37) Alanine Aminotransferase (ALT/SGPT) 45 U/L (14-59) 44 U/L (14-59) Alkaline Phosphatase 51 U/L (46-116) 50 U/L (46-116) Total Protein 6.7 g/dL (6.4-8.2) 6.8 g/dL (6.4-8.2) Albumin 2.8 g/dL (3.4-5.0) 2.9 g/dL (3.4-5.0) Albumin/Globulin Ratio 0.7 (1.0-1.7) 0.7 (1.0-1.7) Glucose (Fingerstick) 145 mg/dL (70-99) Comments CXR Impression: Faintly more pronounced haziness at the infrahilar right lung and basilar left lung. This could be in part technical though atelectasis or evolving infiltrates are possible as well. Impression . IMPRESSION: 1. Respiratory distress secondary to recent seizure, combination with swollen tongue, patient bit her tongue. She is currently not having any significant respiratory distress requiring intubation, no any additional measures. 2. Seizures. 3. History of polysubstance use. 4. Lactic acidosis secondary to seizures. 5. Fever, ?aspiration. resolved Plan . PLAN: Continue supplemental oxygen if needed, remains on room air avoid oversedation Monitor airway, tongue swelling decreased elevate hob Follow Neurology recs Seizure precautions Follow ID recs for ABX Wean precedex as tolerated DVT/GI PPX D/W PEARL CANNON MD Apr 12, 2020 07:21
[2020-04-12] MEDS: POTASSIUM CHLORIDE 20 MEQ TABLET.ER. PO SCH (07:26)
[2020-04-12] MEDS: DOCUSATE SODIUM 100 MG CAPSULE. PO SCH ×2 (07:26→19:54)
--- NOTE | 2020-04-12 08:01 | PDOC ---
Infectious Disease Note Subjective: Subjective Pt doing better no more seizuers Complains of headache no f/n/v tolerating meals well though complains of tongue pain Vital Signs: Vital Signs Vital Signs Date Time Temp Pulse Resp B/P (MAP) Pulse Ox O2 Delivery O2 Flow Rate FiO2 04/12/20 07:00 97.8 112 16 127/90 (102) 92 Room Air 97.8 04/11/20 23:47 6.0 Physical Exam: PHYSICAL EXAM GENERAL:alert awake comfortable HEENT: Pupils equally round. Oral cavity is pink, swollen tongue but less than yesterday. NECK: Supple. No nuchal rigidity. LUNGS: Mild congestion. No accessory muscle use. HEART: Normal S1 and S2 regular. ABDOMEN: Not distended, soft. No guarding. Bowel sounds present. EXTREMITIES: No gross edema or cyanosis. DERMATOLOGIC: Warm to touch. No signs of generalized rash. Some macular rash on the face , No open wounds, multiple tattoos. NEUROLOGIC: Drowsy , arousable, but does not answer all questions LINES: Peripheral IV looks okay. Medications: Inpatient Meds: Medications reviewed. Labs: Lab Laboratory Tests Test 04/11/20 16:05 04/11/20 17:34 04/12/20 04:45 White Blood Count 8.3 x10^3/uL (4.0-11.0) 9.2 x10^3/uL (4.0-11.0) Red Blood Count 4.62 x10^6/uL (3.50-5.40) 4.47 x10^6/uL (3.50-5.40) Hemoglobin 15.4 g/dL (12.0-15.5) 14.9 g/dL (12.0-15.5) Hematocrit 45.2 % (36.0-47.0) 44.1 % (36.0-47.0) Mean Corpuscular Volume 98 fL (79-100) 99 fL (79-100) Mean Corpuscular Hemoglobin 33 pg (25-35) 33 pg (25-35) Mean Corpuscular Hemoglobin Concent 34 g/dL (31-37) 34 g/dL (31-37) Red Cell Distribution Width 13.5 % (11.5-14.5) 13.2 % (11.5-14.5) Platelet Count 161 x10^3/uL (140-400) 209 x10^3/uL (140-400) Neutrophils (%) (Auto) 91 % (31-73) 87 % (31-73) Lymphocytes (%) (Auto) 5 % (24-48) 7 % (24-48) Monocytes (%) (Auto) 4 % (0-9) 5 % (0-9) Eosinophils (%) (Auto) 0 % (0-3) 0 % (0-3) Basophils (%) (Auto) 0 % (0-3) 0 % (0-3) Neutrophils # (Auto) 7.5 x10^3/uL (1.8-7.7) 8.0 x10^3/uL (1.8-7.7) Lymphocytes # (Auto) 0.4 x10^3/uL (1.0-4.8) 0.7 x10^3/uL (1.0-4.8) Monocytes # (Auto) 0.3 x10^3/uL (0.0-1.1) 0.5 x10^3/uL (0.0-1.1) Eosinophils # (Auto) 0.0 x10^3/uL (0.0-0.7) 0.0 x10^3/uL (0.0-0.7) Basophils # (Auto) 0.0 x10^3/uL (0.0-0.2) 0.0 x10^3/uL (0.0-0.2) Segmented Neutrophils % 92 % (35-66) Band Neutrophils % 4 % (0-9) Lymphocytes % 4 % (24-48) Platelet Estimate Adequate (ADEQUATE) Sodium Level 136 mmol/L (136-145) 136 mmol/L (136-145) Potassium Level 3.8 mmol/L (3.5-5.1) 3.6 mmol/L (3.5-5.1) Chloride Level 105 mmol/L (98-107) 102 mmol/L (98-107) Carbon Dioxide Level 21 mmol/L (21-32) 23 mmol/L (21-32) Anion Gap 10 (6-14) 11 (6-14) Blood Urea Nitrogen 13 mg/dL (7-20) 9 mg/dL (7-20) Creatinine 0.7 mg/dL (0.6-1.0) 0.7 mg/dL (0.6-1.0) Estimated GFR (Cockcroft-Gault) 98.3 98.3 BUN/Creatinine Ratio 19 (6-20) 13 (6-20) Glucose Level 144 mg/dL (70-99) 140 mg/dL (70-99) Calcium Level 8.3 mg/dL (8.5-10.1) 8.4 mg/dL (8.5-10.1) Total Bilirubin 1.3 mg/dL (0.2-1.0) 1.3 mg/dL (0.2-1.0) Aspartate Amino Transf (AST/SGOT) 32 U/L (15-37) 35 U/L (15-37) Alanine Aminotransferase (ALT/SGPT) 45 U/L (14-59) 44 U/L (14-59) Alkaline Phosphatase 51 U/L (46-116) 50 U/L (46-116) Total Protein 6.7 g/dL (6.4-8.2) 6.8 g/dL (6.4-8.2) Albumin 2.8 g/dL (3.4-5.0) 2.9 g/dL (3.4-5.0) Albumin/Globulin Ratio 0.7 (1.0-1.7) 0.7 (1.0-1.7) Glucose (Fingerstick) 145 mg/dL (70-99) Objective: Assessment: 1. Encephalopathy, postictal. Improving 2. New-onset seizure. Stable 3. Aspiration suspected. 4. Lactic acidosis. 5. Transaminitis. 6. Hypertension. 7. History of alcohol and drug abuse. Plan: Plan of Care Continue cefepime MRI of the brain noted Neurology following Maintain aspiration precaution Follow-up labs and cultures Discussed with PEPE BUNN MD Apr 12, 2020 08:01
[2020-04-12] MEDS: ACETAMINOPHEN 325 MG TABLET. PO PRN ×2 (08:34→19:55)
[2020-04-12] MEDS: THIAMINE IM 200 MG/2 ML VIAL. IM SCH (08:34)
[2020-04-12] MEDS: FAMOTIDINE 20 MG/2 ML VIAL IVP SCH ×2 (08:35→19:55)
[2020-04-12] MEDS: levETIRAcetam 500 MG in IV DEXTROSE 5% 100ML 100 ML IV SCH ×2 (08:35→19:55)
[2020-04-12] MEDS: IPRATRPIUM/ALBUTEROL 0.5/2.5MG 3 ML NEBU. NEB SCH ×4 (08:59→20:15)
[2020-04-12] MEDS: THIAMINE INJ 100 MG, FOLIC ACID INJ 1 MG in IV NORMAL SALINE 1000ML BAG 1,000 ML IV SCH (09:17)
--- NOTE | 2020-04-12 10:08 | PDOC ---
PROGRESS NOTES Date of Service: DATE: 04/12/20 TIME: 10:[address] Complaint CT head shows no fracture of the cervical spine. Ventricular system is within normal limits without compression or hydrocephalus. No vascular territory infarction is seen. No hemorrhage is identified. CTA of the neck shows negative C-spine for acute trauma. There is patent intracranial and cervical arterial vasculature without stenosis, occlusion or aneurysm. ASSESSMENT: 1. New-onset seizures. 2. History of polysubstance abuse. 3. History of psychiatric disease associated with stress. 4. fever and chills, rule out sepsis. 5. Disconjugate gaze. possible cva 6. Lactic acidosis, which could be from alcohol withdrawal. 7. Possible aspiration. 8. Binge drinking.by hx 9. HX COCAINE ABUSE Plan: Continue IV Keppra, Precedex, thiamine. MRI of the brain. Discussed the patient's initial care with Dr. Ward. plan icu bed consult ID consult Dr. Fitzpatrick, computer operations specialist. Blood cultures and urine culture. Initial covid rapid test is negative. await PCR. currently PUI. Prognosis is guarded with her disconjugate gaze. received Rocephin. , start iv cefipime, acyclovir add vancomycin pending ID consult. Sepsis bundle. Continue cefepime MRI of the brain TODAY, PENDING Neurology following 04/12 nasal trumpet out, more alert, much more alert, talking with friend in room Continue cefepime DC IV Vanco and acyclovir admits to drinking a "handle of vodka a day, sometimes, more:" can go to floor today Marked signal abnormalities in the subcortical white matter primarily in the occipital lobes is compatible with posterior reversible encephalopathy on mri head d/w rn 04/11 nasal trumpet out, more alert, but remains encephalopathic Continue cefepime DC IV Vanco and acyclovir restless night ativan haldol given MRI HEAD, CBC PENDING 37 MIN CC TIME TONNY FITZPATRICK MD,KRISHNA STODDARD ORDERED: BCULT Procedure Result BLOOD CULTURE Preliminary NO GROWTH AFTER 2 DAYS 33 min cc time 04/10 nasal trumpet out, more alert, but encephalopathic Continue cefepime DC IV Vanco and acyclovir 34 min cc time CLAUDINE BERG MD,TONNY CHAN,KRISHNA STODDARD ORDERED: BCULT ----- ------- Procedure Result BLOOD CULTURE Preliminary NO GROWTH AFTER 1 DAY History of Present Illness History of Present Illness HISTORY OF PRESENT ILLNESS: This 29-year-old female was brought to the ER in [place] with seizure activity. She apparently had been visiting a friend from [place] for a and consumed a lot of alcohol 4 days prior to admission. Her last drink was 04/07/2020. Yesterday, she complained of fever and chills and was found by the friend on the apartment floor with abnormal activity, which appeared to be due to seizures. The patient declined transfer initially and then had another seizure. She was confused in the Emergency Room and thought that she was in [place]. There was tongue swelling however. The patient had a [place] coma scale of 7. Intubation was considered, though instead a nasal trumpet was inserted. She was started on IV Keppra and a Precedex drip. She has had no further seizures. Apparently, family states that she has a history of binge alcohol consumption. PAST MEDICAL HISTORY: Significant for alcohol abuse. Other than that, no other past history is available. The patient is sedated and unable to give an adequate history. There are no family members present. She is hypertensive. FAMILY HISTORY: Positive for hypertension. SOCIAL HISTORY: High alcohol consumption. Occasional tobacco use. Occasional cocaine abuse. REVIEW OF SYSTEMS: less difficulty swallowing today Vitals Vitals Vital Signs Date Time Temp Pulse Resp B/P (MAP) Pulse Ox O2 Delivery O2 Flow Rate FiO2 04/12/20 09:24 108 160/117 04/12/20 09:00 18 95 Room Air 04/12/20 07:00 97.8 97.8 04/11/20 23:47 6.0 Physical Exam Physical Exam GENERAL:alert awake comfortable HEENT: Pupils equally round. Oral cavity is pink, swollen tongue but less than yesterday. NECK: Supple. No nuchal rigidity. LUNGS: Mild congestion. No accessory muscle use. HEART: Normal S1 and S2 regular. ABDOMEN: Not distended, soft. No guarding. Bowel sounds present. EXTREMITIES: No gross edema or cyanosis. DERMATOLOGIC: Warm to touch. No signs of generalized rash. Some macular rash on the face , No open wounds, multiple tattoos. NEUROLOGIC: Drowsy , arousable, but does not answer all questions LINES: Peripheral IV looks okay. General: Alert, Cooperative, No acute distress Heart: Regular rate (SR), Normal S1, Normal S2, No murmurs Lungs: Clear Abdomen: Normal bowel sounds, Soft Extremities: No clubbing, No cyanosis, No edema Skin: Other (tongue injury) Labs LABS PATIENT: ROSAURA GRIJALVA ACCT: [id number] LOC: 1 [facility] ICU U: [id number] AGE/SX: 29/F ROOM: [facility] RE04/08/[address]: KRISHNA CHAN MD : 1990 BED: 1 DIS: STATUS: ADM IN TLOC: SPEC #: [id number] JOSIAS: 04/09/20 STATUS: RES REQ #: [id number] RECD: 04/09/[address] [facility] [address]: BRISA GARRETT MD SOURCE: BLOOD ENTR: 04/09/20-[address]: RASHEED TRACY MD SPDESC: MAYLIN GALEANO MD, VENKAT R MD SISILLO, SABATO MD WU, KEVIN MD ORDERED: BCULT Procedure Result BLOOD CULTURE Preliminary NO GROWTH AFTER 3 DAYS PATIENT: ROSAURA GRIJALVA ACCOUNT: [id number] : 1990 LOCATION: [facility] ICU AGE: 29 SEX: F EXAM STATUS: ADM IN ORD. PHYSICIAN: RASHEED TRACY MD REASON: seizures, dysconjugate gaze PROCEDURE: BRAIN W/O CONTRAST EXAM: MRI Brain without IV contrast INDICATION: Reason: seizures, dysconjugate gaze / Spl. Instructions: / History: . TECHNIQUE: Sagittal and axial T1-w and axial T2-w, FLAIR, GRE, coronal T2-w, and diffusion-w images of the brain with ADC maps without IV contrast. COMPARISON: Noncontrast head CT of 04/08/2020 FINDINGS: BRAIN PARENCHYMA: No evidence of hyperacute, acute, or early subacute infarction. There is subcortical white matter FLAIR signal hyperintensity in the bilateral occipital lobes and to lesser extent in the parietal and posterior frontal lobes. VENTRICLES & EXTRA-AXIAL SPACES: Ventricles are within normal limits. Basilar cisterns are patent. No abnormal extra-axial fluid or mass. VESSELS: Normal signal voids in the larger intracranial vessels. ORBITS: Orbital contents are unremarkable. SINUSES: Paranasal sinuses are clear. Tympanic cavities and mastoid air cells are clear. OSSEOUS & SOFT TISSUES: Marrow signal is within normal limits. IMPRESSION: Marked signal abnormalities in the subcortical white matter primarily in the occipital lobes is compatible with posterior reversible encephalopathy in the appropriate clinical context. No evidence of acute infarct, hemorrhage or mass effect. Electronically signed by: Tucker Ramirez MD (04/11/2020 7:30 PM) [facility] [place] DICTATED and SIGNED BY: TUCKER RAMIREZ MD DATE: 04/11/20 [id number] Laboratory Tests Test 04/11/20 16:05 04/11/20 17:34 04/12/20 04:45 White Blood Count 8.3 x10^3/uL (4.0-11.0) 9.2 x10^3/uL (4.0-11.0) Red Blood Count 4.62 x10^6/uL (3.50-5.40) 4.47 x10^6/uL (3.50-5.40) Hemoglobin 15.4 g/dL (12.0-15.5) 14.9 g/dL (12.0-15.5) Hematocrit 45.2 % (36.0-47.0) 44.1 % (36.0-47.0) Mean Corpuscular Volume 98 fL (79-100) 99 fL (79-100) Mean Corpuscular Hemoglobin 33 pg (25-35) 33 pg (25-35) Mean Corpuscular Hemoglobin Concent 34 g/dL (31-37) 34 g/dL (31-37) Red Cell Distribution Width 13.5 % (11.5-14.5) 13.2 % (11.5-14.5) Platelet Count 161 x10^3/uL (140-400) 209 x10^3/uL (140-400) Neutrophils (%) (Auto) 91 % (31-73) 87 % (31-73) Lymphocytes (%) (Auto) 5 % (24-48) 7 % (24-48) Monocytes (%) (Auto) 4 % (0-9) 5 % (0-9) Eosinophils (%) (Auto) 0 % (0-3) 0 % (0-3) Basophils (%) (Auto) 0 % (0-3) 0 % (0-3) Neutrophils # (Auto) 7.5 x10^3/uL (1.8-7.7) 8.0 x10^3/uL (1.8-7.7) Lymphocytes # (Auto) 0.4 x10^3/uL (1.0-4.8) 0.7 x10^3/uL (1.0-4.8) Monocytes # (Auto) 0.3 x10^3/uL (0.0-1.1) 0.5 x10^3/uL (0.0-1.1) Eosinophils # (Auto) 0.0 x10^3/uL (0.0-0.7) 0.0 x10^3/uL (0.0-0.7) Basophils # (Auto) 0.0 x10^3/uL (0.0-0.2) 0.0 x10^3/uL (0.0-0.2) Segmented Neutrophils % 92 % (35-66) Band Neutrophils % 4 % (0-9) Lymphocytes % 4 % (24-48) Platelet Estimate Adequate (ADEQUATE) Sodium Level 136 mmol/L (136-145) 136 mmol/L (136-145) Potassium Level 3.8 mmol/L (3.5-5.1) 3.6 mmol/L (3.5-5.1) Chloride Level 105 mmol/L (98-107) 102 mmol/L (98-107) Carbon Dioxide Level 21 mmol/L (21-32) 23 mmol/L (21-32) Anion Gap 10 (6-14) 11 (6-14) Blood Urea Nitrogen 13 mg/dL (7-20) 9 mg/dL (7-20) Creatinine 0.7 mg/dL (0.6-1.0) 0.7 mg/dL (0.6-1.0) Estimated GFR (Cockcroft-Gault) 98.3 98.3 BUN/Creatinine Ratio 19 (6-20) 13 (6-20) Glucose Level 144 mg/dL (70-99) 140 mg/dL (70-99) Calcium Level 8.3 mg/dL (8.5-10.1) 8.4 mg/dL (8.5-10.1) Total Bilirubin 1.3 mg/dL (0.2-1.0) 1.3 mg/dL (0.2-1.0) Aspartate Amino Transf (AST/SGOT) 32 U/L (15-37) 35 U/L (15-37) Alanine Aminotransferase (ALT/SGPT) 45 U/L (14-59) 44 U/L (14-59) Alkaline Phosphatase 51 U/L (46-116) 50 U/L (46-116) Total Protein 6.7 g/dL (6.4-8.2) 6.8 g/dL (6.4-8.2) Albumin 2.8 g/dL (3.4-5.0) 2.9 g/dL (3.4-5.0) Albumin/Globulin Ratio 0.7 (1.0-1.7) 0.7 (1.0-1.7) Glucose (Fingerstick) 145 mg/dL (70-99) Comment Review of Relevant I have reviewed the following items celsa (where applicable) has been applied. Labs Laboratory Tests Test 04/10/20 11:40 04/10/20 13:54 04/10/20 17:58 04/11/20 04:00 Vancomycin Level Trough 12.3 mcg/mL (10.0-20.0) Vancomycin Last Dose Date 04/10/20 Vancomycin Last Dose Time 0400 Glucose (Fingerstick) 182 mg/dL (70-99) 151 mg/dL (70-99) 189 mg/dL (70-99) Test 04/11/20 06:39 04/11/20 16:05 04/11/20 17:34 04/12/20 04:45 Glucose (Fingerstick) 183 mg/dL (70-99) 145 mg/dL (70-99) White Blood Count 8.3 x10^3/uL (4.0-11.0) 9.2 x10^3/uL (4.0-11.0) Red Blood Count 4.62 x10^6/uL (3.50-5.40) 4.47 x10^6/uL (3.50-5.40) Hemoglobin 15.4 g/dL (12.0-15.5) 14.9 g/dL (12.0-15.5) Hematocrit 45.2 % (36.0-47.0) 44.1 % (36.0-47.0) Mean Corpuscular Volume 98 fL (79-100) 99 fL (79-100) Mean Corpuscular Hemoglobin 33 pg (25-35) 33 pg (25-35) Mean Corpuscular Hemoglobin Concent 34 g/dL (31-37) 34 g/dL (31-37) Red Cell Distribution Width 13.5 % (11.5-14.5) 13.2 % (11.5-14.5) Platelet Count 161 x10^3/uL (140-400) 209 x10^3/uL (140-400) Neutrophils (%) (Auto) 91 % (31-73) 87 % (31-73) Lymphocytes (%) (Auto) 5 % (24-48) 7 % (24-48) Monocytes (%) (Auto) 4 % (0-9) 5 % (0-9) Eosinophils (%) (Auto) 0 % (0-3) 0 % (0-3) Basophils (%) (Auto) 0 % (0-3) 0 % (0-3) Neutrophils # (Auto) 7.5 x10^3/uL (1.8-7.7) 8.0 x10^3/uL (1.8-7.7) Lymphocytes # (Auto) 0.4 x10^3/uL (1.0-4.8) 0.7 x10^3/uL (1.0-4.8) Monocytes # (Auto) 0.3 x10^3/uL (0.0-1.1) 0.5 x10^3/uL (0.0-1.1) Eosinophils # (Auto) 0.0 x10^3/uL (0.0-0.7) 0.0 x10^3/uL (0.0-0.7) Basophils # (Auto) 0.0 x10^3/uL (0.0-0.2) 0.0 x10^3/uL (0.0-0.2) Segmented Neutrophils % 92 % (35-66) Band Neutrophils % 4 % (0-9) Lymphocytes % 4 % (24-48) Platelet Estimate Adequate (ADEQUATE) Sodium Level 136 mmol/L (136-145) 136 mmol/L (136-145) Potassium Level 3.8 mmol/L (3.5-5.1) 3.6 mmol/L (3.5-5.1) Chloride Level 105 mmol/L (98-107) 102 mmol/L (98-107) Carbon Dioxide Level 21 mmol/L (21-32) 23 mmol/L (21-32) Anion Gap 10 (6-14) 11 (6-14) Blood Urea Nitrogen 13 mg/dL (7-20) 9 mg/dL (7-20) Creatinine 0.7 mg/dL (0.6-1.0) 0.7 mg/dL (0.6-1.0) Estimated GFR (Cockcroft-Gault) 98.3 98.3 BUN/Creatinine Ratio 19 (6-20) 13 (6-20) Glucose Level 144 mg/dL (70-99) 140 mg/dL (70-99) Calcium Level 8.3 mg/dL (8.5-10.1) 8.4 mg/dL (8.5-10.1) Total Bilirubin 1.3 mg/dL (0.2-1.0) 1.3 mg/dL (0.2-1.0) Aspartate Amino Transf (AST/SGOT) 32 U/L (15-37) 35 U/L (15-37) Alanine Aminotransferase (ALT/SGPT) 45 U/L (14-59) 44 U/L (14-59) Alkaline Phosphatase 51 U/L (46-116) 50 U/L (46-116) Total Protein 6.7 g/dL (6.4-8.2) 6.8 g/dL (6.4-8.2) Albumin 2.8 g/dL (3.4-5.0) 2.9 g/dL (3.4-5.0) Albumin/Globulin Ratio 0.7 (1.0-1.7) 0.7 (1.0-1.7) Laboratory Tests Test 04/11/20 16:05 04/11/20 17:34 04/12/20 04:45 White Blood Count 8.3 x10^3/uL (4.0-11.0) 9.2 x10^3/uL (4.0-11.0) Red Blood Count 4.62 x10^6/uL (3.50-5.40) 4.47 x10^6/uL (3.50-5.40) Hemoglobin 15.4 g/dL (12.0-15.5) 14.9 g/dL (12.0-15.5) Hematocrit 45.2 % (36.0-47.0) 44.1 % (36.0-47.0) Mean Corpuscular Volume 98 fL (79-100) 99 fL (79-100) Mean Corpuscular Hemoglobin 33 pg (25-35) 33 pg (25-35) Mean Corpuscular Hemoglobin Concent 34 g/dL (31-37) 34 g/dL (31-37) Red Cell Distribution Width 13.5 % (11.5-14.5) 13.2 % (11.5-14.5) Platelet Count 161 x10^3/uL (140-400) 209 x10^3/uL (140-400) Neutrophils (%) (Auto) 91 % (31-73) 87 % (31-73) Lymphocytes (%) (Auto) 5 % (24-48) 7 % (24-48) Monocytes (%) (Auto) 4 % (0-9) 5 % (0-9) Eosinophils (%) (Auto) 0 % (0-3) 0 % (0-3) Basophils (%) (Auto) 0 % (0-3) 0 % (0-3) Neutrophils # (Auto) 7.5 x10^3/uL (1.8-7.7) 8.0 x10^3/uL (1.8-7.7) Lymphocytes # (Auto) 0.4 x10^3/uL (1.0-4.8) 0.7 x10^3/uL (1.0-4.8) Monocytes # (Auto) 0.3 x10^3/uL (0.0-1.1) 0.5 x10^3/uL (0.0-1.1) Eosinophils # (Auto) 0.0 x10^3/uL (0.0-0.7) 0.0 x10^3/uL (0.0-0.7) Basophils # (Auto) 0.0 x10^3/uL (0.0-0.2) 0.0 x10^3/uL (0.0-0.2) Segmented Neutrophils % 92 % (35-66) Band Neutrophils % 4 % (0-9) Lymphocytes % 4 % (24-48) Platelet Estimate Adequate (ADEQUATE) Sodium Level 136 mmol/L (136-145) 136 mmol/L (136-145) Potassium Level 3.8 mmol/L (3.5-5.1) 3.6 mmol/L (3.5-5.1) Chloride Level 105 mmol/L (98-107) 102 mmol/L (98-107) Carbon Dioxide Level 21 mmol/L (21-32) 23 mmol/L (21-32) Anion Gap 10 (6-14) 11 (6-14) Blood Urea Nitrogen 13 mg/dL (7-20) 9 mg/dL (7-20) Creatinine 0.7 mg/dL (0.6-1.0) 0.7 mg/dL (0.6-1.0) Estimated GFR (Cockcroft-Gault) 98.3 98.3 BUN/Creatinine Ratio 19 (6-20) 13 (6-20) Glucose Level 144 mg/dL (70-99) 140 mg/dL (70-99) Calcium Level 8.3 mg/dL (8.5-10.1) 8.4 mg/dL (8.5-10.1) Total Bilirubin 1.3 mg/dL (0.2-1.0) 1.3 mg/dL (0.2-1.0) Aspartate Amino Transf (AST/SGOT) 32 U/L (15-37) 35 U/L (15-37) Alanine Aminotransferase (ALT/SGPT) 45 U/L (14-59) 44 U/L (14-59) Alkaline Phosphatase 51 U/L (46-116) 50 U/L (46-116) Total Protein 6.7 g/dL (6.4-8.2) 6.8 g/dL (6.4-8.2) Albumin 2.8 g/dL (3.4-5.0) 2.9 g/dL (3.4-5.0) Albumin/Globulin Ratio 0.7 (1.0-1.7) 0.7 (1.0-1.7) Glucose (Fingerstick) 145 mg/dL (70-99) Microbiology 04/09/20 Blood Culture - Preliminary, Resulted NO GROWTH AFTER 2 DAYS 04/09/20 Urine Culture - Final, Complete Medications Current Medications Lorazepam (Ativan) 4 mg PRN Q1HR PRN PO For CIWA 8-14; Start 04/08/20 at 23:30 Lorazepam (Ativan) 8 mg PRN Q1HR PRN PO For CIWA 15 or greater; Start 04/08/20 at 23:30 Lorazepam (Ativan Inj) 2 mg PRN Q1HR PRN IV For CIWA 8-14 Last administered on 04/11/20 20:43; Start 04/08/20 at 23:30 Lorazepam (Ativan Inj) 4 mg PRN Q1HR PRN IV For CIWA 15 or greater Last administered on 04/11/20at 23:33; Start 04/08/20 at 23:30 Haloperidol Lactate (Haldol Inj) 5 mg PRN Q4HRS PRN IVP Hallucinatns,Confusn,Delirium Last administered on 04/11/20at 14:53; Start 04/08/20 at 23:30 Clonidine HCl (Catapres) 0.1 mg PRN Q1HR PRN PO SBP > 180 OR DBP > 100, MRX3 Last administered on 04/09/20at 00:15; Start 04/08/20 at 23:30 Lorazepam (Ativan Inj) 2 mg PRN Q15MIN PRN IV SEE COMMENTS Last administered on 04/08/20at 23:48; Start 04/08/20 at 23:30 Lorazepam (Ativan Inj) 4 mg PRN Q15MIN PRN IV SEE COMMENTS Last administered on 04/09/20at 02:34; Start 04/08/20 at 23:30 Levetiracetam 500 mg/Dextrose 105 ml @ 420 mls/hr Q12HR IV Last administered on 04/12/20 08:35; Start 04/09/20 at 09:00 Ringer's Solution 1,000 ml @ 100 mls/hr Q10H IV Last administered on 04/09/20 08:57; Start 04/08/20 at 23:30; Stop 04/09/20 at 12:09; Status DC Labetalol HCl (Normodyne Iv Push) 10 mg PRN Q2HRS PRN IVP HYPERTENSION-1ST CHOICE Last administered on 04/10/20 13:03; Start 04/09/20 at 03:00 Dexmedetomidine HCl 400 mcg/ Sodium Chloride 100 ml @ 0 mls/hr CONT PRN IV PER PROTOCOL Last administered on 04/11/20at 12:56; Start 04/09/20 at 03:00 Sodium Chloride 500 ml @ 500 mls/hr 1X PRN PRN IV SEE COMMENTS; Start 04/09/20 at 03:00 Atropine Sulfate (ATROPINE 0.5mg SYRINGE) 0.5 mg PRN Q5MIN PRN IV SEE COMMENTS; Start 04/09/20 at 03:00 Sodium Chloride 1,000 ml @ 50 mls/hr Q20H IV ; Start 04/09/20 at 08:45; Stop 04/09/20 at 09:01; Status DC Thiamine HCl (Thiamine Im) 100 mg DAILY IM Last administered on 04/12/20at 08:34; Start 04/09/20 at 10:00 Hydralazine HCl (Apresoline Inj) 10 mg PRN Q4HRS PRN IVP ELEVATED BP, SEE COMMENTS Last administered on 04/12/20at 09:24; Start 04/09/20 at 10:15 Amlodipine Besylate (Norvasc) 5 mg DAILY PO ; Start 04/09/20 at 10:15 Ceftriaxone Sodium (Rocephin) 1 gm Q24H IVP Last administered on 04/09/20at 10:53; Start 04/09/20 at 11:00; Stop 04/09/20 at 12:06; Status DC Potassium Chloride (Klor-Con) 40 meq 1X ONCE PO ; Start 04/09/20 at 10:15; Stop 04/09/20 at 10:16; Status DC Potassium Chloride (Klor-Con) 20 meq DAILYWBKFT PO ; Start 04/10/20 at 08:00 Hydralazine HCl (Apresoline Inj) 10 mg PRN Q4HRS PRN IVP ELEVATED BP, SEE COMMENTS; Start 04/09/20 at 10:15; Status UNV Clonidine HCl (Catapres Tts-1) 1 patch WEEKLY TD Last administered on 04/09/20at 10:57; Start 04/09/20 at 11:00; Stop 04/10/20 at 16:49; Status DC Acetaminophen (Tylenol) 650 mg PRN Q6HRS PRN PO Headaches, Temp > 101.5' Last administered on 04/12/20at 08:34; Start 04/09/20 at 10:15 Lorazepam (Ativan Inj) 0.5 mg PRN Q6HRS PRN IVP ANXIETY / AGITATION; Start 04/09/20 at 10:15 Ondansetron HCl (Zofran) 4 mg PRN Q6HRS PRN IVP NAUSEA/VOMITING; Start 04/09/20 at 10:15 Prochlorperazine (Compazine) 25 mg PRN Q12HR PRN SC NAUSEA/VOMITING; Start 04/09/20 at 10:15 Al Hydroxide/Mg Hydroxide (Mylanta Plus Xs) 30 ml PRN Q3HRS PRN PO HEARTBURN / GAS; Start 04/09/20 at 10:15 Calcium Carbonate/ Glycine (Tums) 500 mg PRN Q3HRS PRN PO HEARTBURN / GAS; Start 04/09/20 at 10:15 Famotidine (Pepcid Vial) 20 mg BID IVP Last administered on 04/12/20at 08:35; Start 04/09/20 at 21:00 Heparin Sodium (Porcine) (Heparin Sodium) 5,000 unit Q8HRS SQ Last administered on 04/11/20at 13:19; Start 04/09/20 at 14:00 Sodium Chloride (Normal Saline Flush) 3 ml QSHIFT PRN IV AFTER MEDS AND BLOOD DRAWS; Start 04/09/20 at 10:15 Docusate Sodium (Colace) 100 mg BID PO ; Start 04/09/20 at 21:00 Magnesium Hydroxide (Milk Of Magnesia) 2,400 mg PRN Q12HR PRN PO CONSTIPATION; Start 04/09/20 at 10:15 Vancomycin HCl (Vanco Per Pharmacy) 1 each PRN DAILY PRN MC SEE COMMENTS Last administered on 04/09/20at 13:43; Start 04/09/20 at 11:15; Stop 04/10/20 at 13:16; Status DC Sodium Chloride 1,000 ml @ 1,710 mls/hr Q36M IV ; Start 04/09/20 at 11:30; Stop 04/09/20 at 11:27; Status DC Sodium Chloride 500 ml @ 1,000 mls/hr PRN Q30MIN PRN IV SEE COMMENTS; Start 04/09/20 at 11:30; Stop 04/09/20 at 12:13; Status DC Albuterol/ Ipratropium (Duoneb) 3 ml RTQID NEB Last administered on 04/12/20at 08:59; Start 04/09/20 at 12:00 Sodium Chloride 1,000 ml @ 1,710 mls/hr Q36M PRN IV SEE COMMENTS; Start 04/09/20 at 11:30 Vancomycin HCl 1.75 gm/Sodium Chloride 500 ml @ 250 mls/hr 1X ONCE IV Last administered on 04/09/20at 12:06; Start 04/09/20 at 12:00; Stop 04/09/20 at 13:59; Status DC Acyclovir Sodium 575 mg/Dextrose 111.5 ml @ 111.5 mls/ hr Q8HRS IV Last administered on 04/10/20at 06:44; Start 04/09/20 at 14:00; Stop 04/10/20 at 12:30; Status DC Cefepime HCl (Maxipime) 2 gm Q8HRS IVP Last administered on 04/12/20at 04:32; Start 04/09/20 at 14:00 Potassium Chloride/Sodium Chloride 1,000 ml @ 100 mls/hr Q10H IV Last ad ministered on 04/09/20at 13:08; Start 04/09/20 at 12:15; Stop 04/09/20 at 22:14; Status DC Ringer's Solution 1,000 ml @ 100 mls/hr Q10H IV ; Start 04/09/20 at 23:00; Stop 04/10/20 at 01:06; Status DC Methylprednisolone Sodium Succinate (SOLU-Medrol 125MG VIAL) 100 mg Q8HRS IV Last administered on 04/12/20at 04:32; Start 04/09/20 at 14:00 Vancomycin HCl 1 gm/Sodium Chloride 250 ml @ 250 mls/hr Q8H IV Last administered on 04/10/20at 04:57; Start 04/09/20 at 20:00; Stop 04/10/20 at 12:30; Status DC Vancomycin HCl (Vancomycin Trough Level) 1 each 1X ONCE MC Last administered on 04/10/20at 11:30; Start 04/10/20 at 11:30; Stop 04/10/20 at 11:31; Status DC Acetaminophen (Tylenol Supp) 650 mg PRN Q6HRS PRN SC MILD PAIN / TEMP > 100.3'F Last administered on 04/09/20at 19:42; Start 04/09/20 at 19:30 Fentanyl Citrate (Fentanyl 2ml Vial) 50 mcg PRN Q2HR PRN IVP SEVERE PAIN 7-10 Last administered on 04/11/20at 03:46; Start 04/09/20 at 22:45 Thiamine HCl 100 mg/Folic Acid 1 mg/Sodium Chloride 1,001.2 ml @ 100.012 mls/hr DAILY IV Last administered on 04/12/20at 09:17; Start 04/10/20 at 12:00 Succinylcholine Chloride (Anectine) 100 mg 1X ONCE IV ; Start 04/10/20 at 12:00; Stop 04/10/20 at 11:55; Status DC Etomidate (Amidate) 10 mg 1X ONCE IV ; Start 04/10/20 at 12:00; Stop 04/10/20 at 12:01; Status Cancel Linezolid/Dextrose 300 ml @ 300 mls/hr Q12HR IV Last administered on 04/12/20at 08:35; Start 04/10/20 at 13:00 Clonidine HCl (Catapres Tts-2) 1 patch Fr@0900 TD ; Start 04/17/20 at 09:00 Vitals/I & O Vital Sign - Last 24 Hours 04/11/20 04/11/20 04/11/20 04/11/20 11:00 11:11 12:00 12:03 Temp 97.6 97.6 97.6 97.6 Pulse 63 73 Resp 17 17 B/P (MAP) 124/78 (93) 124/78 (93) Pulse Ox 95 96 96 O2 Delivery Room Air Room Air Room Air Room Air 04/11/20 04/11/20 04/11/20 04/11/20 12:56 14:00 15:07 16:00 Pulse 82 63 69 Resp 17 17 17 B/P (MAP) 133/85 (101) 144/85 (104) 120/90 (100) Pulse Ox 96 95 95 O2 Delivery Room Air Room Air Room Air Room Air 04/11/20 04/11/20 04/11/20 04/11/20 16:08 16:24 17:00 18:01 Pulse 72 88 92 Resp 18 18 18 B/P (MAP) 111/85 (94) 120/87 (98) 140/82 (101) Pulse Ox 96 97 96 97 O2 Delivery Room Air Room Air Room Air Room Air 04/11/20 04/11/20 04/11/20 04/11/20 19:19 19:26 19:36 20:09 Temp 99.3 99.3 Pulse 108 Resp 18 B/P (MAP) 146/110 (122) 147/96 (113) Pulse Ox 97 98 O2 Delivery Room Air Room Air Room Air 04/11/20 04/11/20 04/11/20 04/11/20 21:00 22:14 23:02 23:47 Temp 98.0 98.0 Pulse 115 118 110 Resp 23 20 17 B/P (MAP) 164/111 (128) 142/66 (91) 154/100 (118) Pulse Ox 96 96 97 O2 Delivery Room Air Room Air Room Air Room Air O2 Flow Rate 6.0 04/12/20 04/12/20 04/12/20 04/12/20 01:10 01:17 02:02 03:06 Pulse 117 116 110 Resp 18 12 15 B/P (MAP) 172/106 172/106 (128) 144/84 (104) 145/87 (106) Pulse Ox 98 96 95 O2 Delivery Room Air Room Air Room Air 04/12/20 04/12/20 04/12/20 04/12/20 03:36 04:07 04:59 05:03 Pulse 114 127 Resp 17 21 B/P (MAP) 164/88 (113) 179/105 (129) 135/86 (102) Pulse Ox 95 95 O2 Delivery Room Air Room Air Room Air 04/12/20 04/12/20 04/12/20 04/12/20 07:00 08:00 08:00 08:59 Temp 97.8 97.8 Pulse 112 114 Resp 16 17 B/P (MAP) 127/90 (102) 127/86 (100) Pulse Ox 92 93 96 O2 Delivery Room Air Room Air Room Air Room Air 04/12/20 04/12/20 09:00 09:24 Pulse 113 108 Resp 18 B/P (MAP) 160/117 (131) 160/117 Pulse Ox 95 O2 Delivery Room Air Intake and Output 04/11/20 04/11/20 04/12/20 14:59 22:59 06:59 Intake Total 0 ml 0 ml 0 ml Output Total 300 ml 335 ml 500 ml Balance -300 ml -335 ml -500 ml Justicifation of Admission Dx: Justifications for Admission: Justification of Admission Dx: Yes BRISA GARRETT MD Apr 12, 2020 10:08
--- NOTE | 2020-04-12 17:04 | RAD ---
Chest PA and lateral 04/12/2020. Reason for exam: Pneumonitis. Comparison is made with a study of 04/10/2020. There is better inspiration. Haziness at the lung bases has cleared. There is some overlying breast t issue on the PA, but no infiltrate or effusion is seen. Heart size is normal. IMPRESSION: No apparent acute abnormality. Electronically signed by: Brandt Ziegler Jr., MD (04/12/2020 5:01 PM) [facility]
[2020-04-12] MEDS: LACTOBACILLUS RHAMNOSUS GG 1 CAPSULE. PO SCH (19:55)
[2020-04-13 02:07] LABS: HEMOGLOBIN A1C 5.6 % (4.8-5.6)
[2020-04-13 02:55] VITALS: BP 169/110
[2020-04-13] MEDS: CEFEPIME HCL IV Push 2 GM VIAL. IVP SCH (06:22)
[2020-04-13] MEDS: methylPREDNISolone SOD SUCC PF 125 MG/2 ML VIAL. IV SCH (06:23)
[2020-04-13] MEDS: HEPARIN for SUB-Q USE 5,000 UNIT/ML VIAL. SQ SCH (06:25)
[2020-04-13 07:00] VITALS: BP 180/119
[2020-04-13] MEDS: IPRATRPIUM/ALBUTEROL 0.5/2.5MG 3 ML NEBU. NEB SCH (07:24)
--- NOTE | 2020-04-13 07:40 | PDOC ---
Infectious Disease Note Subjective Subjective Pt doing better no more seizuers no f/n/v ROS ROS no n/v/d/fever Vital Sign Vital Signs Vital Signs Date Time Temp Pulse Resp B/P (MAP) Pulse Ox O2 Delivery O2 Flow Rate FiO2 04/13/20 02:55 98.3 77 18 169/110 (129) 95 Room Air 98.3 Physical Exam PHYSICAL EXAM GENERAL:alert awake comfortable HEENT: Pupils equally round. Oral cavity is pink, swollen tongue but less than yesterday. NECK: Supple. No nuchal rigidity. LUNGS: Mild congestion. No accessory muscle use. HEART: Normal S1 and S2 regular. ABDOMEN: Not distended, soft. No guarding. Bowel sounds present. EXTREMITIES: No gross edema or cyanosis. DERMATOLOGIC: Warm to touch. No signs of generalized rash. Some macular rash on the face , No open wounds, multiple tattoos. NEUROLOGIC: Drowsy , arousable, but does not answer all questions LINES: Peripheral IV looks okay. Labs Lab Laboratory Tests Test 04/12/20 12:25 Ammonia 12 mcmol/L (11-34) Micro Microbiology 04/09/20 Blood Culture - Preliminary, Resulted NO GROWTH AFTER 3 DAYS 04/09/20 Urine Culture - Final, Complete Objective Assessment 1. Encephalopathy, postictal. Improving 2. New-onset seizure. Stable 3. Aspiration suspected. 4. Lactic acidosis. 5. Transaminitis. 6. Hypertension. 7. History of alcohol and drug abuse. Plan Plan of Care MRI of the brain noted Neurology following Maintain aspiration precaution Follow-up labs and cultures Discussed with RN change antibiotics to po uniquein MAYLIN GALEANO MD Apr 13, 2020 07:40
--- NOTE | 2020-04-13 08:16 | PDOC ---
PULMONARY PROGRESS NOTES DATE: 04/13/20 TIME: 08:16 Subjective Patient on room air no shortness of air no chest pain no pressure Vitals Vital Signs Date Time Temp Pulse Resp B/P (MAP) Pulse Ox O2 Delivery O2 Flow Rate FiO2 04/13/20 02:55 98.3 77 18 169/110 (129) 95 Room Air 98.3 ROS: No Nausea, No Chest Pain, No Abdominal Pain, No Increase Cough General: Confused Lungs: Clear Cardiovascular: S1, S2 Abdomen: Soft, Non-tender Extremities: No Edema Skin: Warm, Dry Labs Laboratory Tests Test 04/11/20 11:57 04/11/20 16:05 04/11/20 17:34 04/12/20 04:45 Glucose (Fingerstick) 204 mg/dL (70-99) 145 mg/dL (70-99) White Blood Count 8.3 x10^3/uL (4.0-11.0) 9.2 x10^3/uL (4.0-11.0) Red Blood Count 4.62 x10^6/uL (3.50-5.40) 4.47 x10^6/uL (3.50-5.40) Hemoglobin 15.4 g/dL (12.0-15.5) 14.9 g/dL (12.0-15.5) Hematocrit 45.2 % (36.0-47.0) 44.1 % (36.0-47.0) Mean Corpuscular Volume 98 fL (79-100) 99 fL (79-100) Mean Corpuscular Hemoglobin 33 pg (25-35) 33 pg (25-35) Mean Corpuscular Hemoglobin Concent 34 g/dL (31-37) 34 g/dL (31-37) Red Cell Distribution Width 13.5 % (11.5-14.5) 13.2 % (11.5-14.5) Platelet Count 161 x10^3/uL (140-400) 209 x10^3/uL (140-400) Neutrophils (%) (Auto) 91 % (31-73) 87 % (31-73) Lymphocytes (%) (Auto) 5 % (24-48) 7 % (24-48) Monocytes (%) (Auto) 4 % (0-9) 5 % (0-9) Eosinophils (%) (Auto) 0 % (0-3) 0 % (0-3) Basophils (%) (Auto) 0 % (0-3) 0 % (0-3) Neutrophils # (Auto) 7.5 x10^3/uL (1.8-7.7) 8.0 x10^3/uL (1.8-7.7) Lymphocytes # (Auto) 0.4 x10^3/uL (1.0-4.8) 0.7 x10^3/uL (1.0-4.8) Monocytes # (Auto) 0.3 x10^3/uL (0.0-1.1) 0.5 x10^3/uL (0.0-1.1) Eosinophils # (Auto) 0.0 x10^3/uL (0.0-0.7) 0.0 x10^3/uL (0.0-0.7) Basophils # (Auto) 0.0 x10^3/uL (0.0-0.2) 0.0 x10^3/uL (0.0-0.2) Segmented Neutrophils % 92 % (35-66) Band Neutrophils % 4 % (0-9) Lymphocytes % 4 % (24-48) Platelet Estimate Adequate (ADEQUATE) Sodium Level 136 mmol/L (136-145) 136 mmol/L (136-145) Potassium Level 3.8 mmol/L (3.5-5.1) 3.6 mmol/L (3.5-5.1) Chloride Level 105 mmol/L (98-107) 102 mmol/L (98-107) Carbon Dioxide Level 21 mmol/L (21-32) 23 mmol/L (21-32) Anion Gap 10 (6-14) 11 (6-14) Blood Urea Nitrogen 13 mg/dL (7-20) 9 mg/dL (7-20) Creatinine 0.7 mg/dL (0.6-1.0) 0.7 mg/dL (0.6-1.0) Estimated GFR (Cockcroft-Gault) 98.3 98.3 BUN/Creatinine Ratio 19 (6-20) 13 (6-20) Glucose Level 144 mg/dL (70-99) 140 mg/dL (70-99) Hemoglobin A1c 5.6 % (4.8-5.6) Calcium Level 8.3 mg/dL (8.5-10.1) 8.4 mg/dL (8.5-10.1) Total Bilirubin 1.3 mg/dL (0.2-1.0) 1.3 mg/dL (0.2-1.0) Aspartate Amino Transf (AST/SGOT) 32 U/L (15-37) 35 U/L (15-37) Alanine Aminotransferase (ALT/SGPT) 45 U/L (14-59) 44 U/L (14-59) Alkaline Phosphatase 51 U/L (46-116) 50 U/L (46-116) Total Protein 6.7 g/dL (6.4-8.2) 6.8 g/dL (6.4-8.2) Albumin 2.8 g/dL (3.4-5.0) 2.9 g/dL (3.4-5.0) Albumin/Globulin Ratio 0.7 (1.0-1.7) 0.7 (1.0-1.7) Test 04/12/20 12:25 Ammonia 12 mcmol/L (11-34) Laboratory Tests Test 04/12/20 12:25 Ammonia 12 mcmol/L (11-34) Comments CXR Impression: Faintly more pronounced haziness at the infrahilar right lung and basilar left lung. This could be in part technical though atelectasis or evolving infiltrates are possible as well. Impression . IMPRESSION: 1. Respiratory distress secondary to recent seizure, combination with swollen tongue, patient bit her tongue. She is currently not having any significant respiratory distress requiring intubation, no any additional measures. 2. Seizures. 3. History of polysubstance use. 4. Lactic acidosis secondary to seizures. 5. Fever, ?aspiration. resolved Plan . Patient on room air in no respiratory distress We will sign off Patient visiting with psychiatry intake personnel TONNY PYLE MD Apr 13, 2020 08:16
--- NOTE | 2020-04-13 08:25 | PDOC ---
[facility] PROGRESS NOTE Date of Service DOS: DATE: 04/13/20 TIME: 08:14 Chief Complaint Chief Complaint A/P: New-onset seizures. History of polysubstance abuse. History of psychiatric disease associated with stress. Fever and chills, rule out sepsis. Disconjugate gaze. possible cva Lactic acidosis, which could be from alcohol withdrawal. Possible aspiration. Binge drinking.by hx HX COCAINE ABUSE Plan: Continue IV Keppra, Precedex, thiamine. MRI of the brain. Discussed the patient's initial care with Dr. Ward. icu bed consult ID consult Dr. Fitzpatrick, associate application developer. Blood cultures and urine culture. Initial covid rapid test is negative. await PCR. currently PUI. Prognosis is guarded with her disconjugate gaze. received Rocephin. , start iv cefipime, acyclovir add vancomycin pending ID consult. Sepsis bundle. Neurology following History of Present Illness History of Present Illness Ms Berrios is a 29-year-old female was brought to the ER in [place] with seizure activity. She apparently had been visiting a friend from [place] for a and consumed a lot of alcohol 4 days prior to admission. Her last drink was 04/07/2020. She complained of fever and chills and was found by the friend on the apartment floor with abnormal activity, which appeared to be due to seizures. The patient declined transfer initially and then had another seizure. She was confused in the Emergency Room and thought that she was in [place]. There was tongue swelling however. The patient had a Yg coma scale of 7. Intubation was considered, though instead a nasal trumpet was inserted. She was started on IV Keppra and a Precedex drip. She has had no further seizures. Apparently, family states that she has a history of binge alcohol consumption. Lactate > 7 on admit. Transferred to [place] from [place] for further care. CT head shows no fracture of the cervical spine. Ventricular system is within normal limits without compression or hydrocephalus. No vascular territory infarction is seen. No hemorrhage is identified. CTA of the neck shows negative C-spine for acute trauma. There is patent intracranial and cervical arterial vasculature without stenosis, occlusion or aneurysm. 04/10: Nasal trumpet out, more alert, but encephalopathic. Continue cefepime. DC IV Vanco and acyclovir 2/27: Nasal trumpet out, more alert, but remains encephalopathic. Continue cefepime. DC IV Vanco and acyclovir. Restless night ativan haldol given. MRI HEAD appears to be PRES 04/12: Nasal trumpet out, more alert, much more alert, talking with friend in room. Admits to drinking a "handle of vodka a day, sometimes, more:" Marked signal abnormalities in the subcortical white matter primarily in the occipital lobes is compatible with posterior reversible encephalopathy No further seizures. Ambulated the unit. Is tearful noting she just came here to help a friend mitigate bedbugs and parents house. She is very active normally and has been "partying too hard". She has multiple questions about PRES. BP control. Discussed with neurology okay to discharge on Keppra taper. Vitals/I&O Vitals/I&O: Vital Signs Date Time Temp Pulse Resp B/P (MAP) Pulse Ox O2 Delivery O2 Flow Rate FiO2 04/13/20 02:55 98.3 77 18 169/110 (129) 95 Room Air 98.3 I & O 04/12/20 04/12/20 04/13/20 15:00 23:00 07:00 Intake Total 620 ml 360 ml 400 ml Balance 620 ml 360 ml 400 ml Physical Exam Physical Exam: GENERAL:alert awake comfortable HEENT: Pupils equally round. Oral cavity is pink, swollen tongue but less than yesterday. NECK: Supple. No nuchal rigidity. LUNGS: Mild congestion. No accessory muscle use. HEART: Normal S1 and S2 regular. ABDOMEN: Not distended, soft. No guarding. Bowel sounds present. EXTREMITIES: No gross edema or cyanosis. DERMATOLOGIC: Warm to touch. No signs of generalized rash. Some macular rash on the face , No open wounds, multiple tattoos. NEUROLOGIC: Drowsy , arousable, but does not answer all questions LINES: Peripheral IV looks okay. General: Alert, Cooperative, No acute distress Heart: Regular rate (SR), Normal S1, Normal S2, No murmurs Lungs: Clear Abdomen: Normal bowel sounds, Soft Extremities: No clubbing, No cyanosis, No edema Skin: Other (tongue injury) Labs Labs: Laboratory Tests Test 04/12/20 12:25 Ammonia 12 mcmol/L (11-34) Comment Review of Relevant I have reviewed the following items celsa (where applicable) has been applied. Medications: Current Medications Medications (Trade) Dose Ordered Sig/Stephanie Route PRN Reason Start Time Stop Time Status Last Admin Dose Admin Lactobacillus Rhamnosus (Culturelle) 1 cap BID PO 04/12/20 21:00 04/12/20 19:55 Justifications for Admission Other Justification ALCOHOL WITHDRAWAL SEIZURE JEANNA STEPHENSON MD Apr 13, 2020 08:25
[2020-04-13] MEDS: POTASSIUM CHLORIDE 20 MEQ TABLET.ER. PO SCH (08:26)
[2020-04-13] MEDS: THIAMINE IM 200 MG/2 ML VIAL. IM SCH (08:26)
[2020-04-13 08:39] VITALS: BP 187/119
[2020-04-13] MEDS: hydrALAZINE 20 MG/ML VIAL. IVP PRN (08:39)
--- NOTE | 2020-04-13 08:59 | PDOC ---
PROGRESS NOTES Date of Service DATE: 04/13/20 TIME: 08:56 Assessment Posterior reversible encephalopathy syndrome New seizures in a patient with drug and substance abuse, psychiatric disease, stress from friend's , but she also had some fevers and chills raising the possibility of infection. Electroencephalogram normal Disconjugate gaze has resolved Initially had lactic acidosis Plan Continue levetiracetam, instructed patient to taper off of it after 3-6 months. If she cannot find a supervising physician, she could take just at night for 2 weeks, then every other night for 2 weeks, then stop Okay for discharge Follow-up with me as needed Subjective No complaints, tongue is better, wants to go home Objective Vital Signs Date Time Temp Pulse Resp B/P (MAP) Pulse Ox O2 Delivery O2 Flow Rate FiO2 04/13/20 08:39 87 187/119 04/13/20 08:00 Room Air 04/13/20 07:00 97.5 18 95 97.5 Intake and Output 04/13/20 07:00 Intake Total 1380 ml Balance 1380 ml Intake Oral 1380 ml # Voids 7 # Bowel Movements 2 PHYSICAL EXAM Alert. Follows commands, speech much clearer PERRL. EOMI. CN: no focal findings. Muscle tone: normal. Muscle strength: 5/5 DTR: 2+ Plantar reflex: Flexor. Gait: not examined in bed. Sensory exam: no abnormal findings. Cerebellar: No cerebellar findings No tremulousness Review of Relevant I have reviewed the following items celsa (where applicable) has been applied. Labs Laboratory Tests Test 04/11/20 11:57 04/11/20 16:05 04/11/20 17:34 04/12/20 04:45 Glucose (Fingerstick) 204 mg/dL (70-99) 145 mg/dL (70-99) White Blood Count 8.3 x10^3/uL (4.0-11.0) 9.2 x10^3/uL (4.0-11.0) Red Blood Count 4.62 x10^6/uL (3.50-5.40) 4.47 x10^6/uL (3.50-5.40) Hemoglobin 15.4 g/dL (12.0-15.5) 14.9 g/dL (12.0-15.5) Hematocrit 45.2 % (36.0-47.0) 44.1 % (36.0-47.0) Mean Corpuscular Volume 98 fL (79-100) 99 fL (79-100) Mean Corpuscular Hemoglobin 33 pg (25-35) 33 pg (25-35) Mean Corpuscular Hemoglobin Concent 34 g/dL (31-37) 34 g/dL (31-37) Red Cell Distribution Width 13.5 % (11.5-14.5) 13.2 % (11.5-14.5) Platelet Count 161 x10^3/uL (140-400) 209 x10^3/uL (140-400) Neutrophils (%) (Auto) 91 % (31-73) 87 % (31-73) Lymphocytes (%) (Auto) 5 % (24-48) 7 % (24-48) Monocytes (%) (Auto) 4 % (0-9) 5 % (0-9) Eosinophils (%) (Auto) 0 % (0-3) 0 % (0-3) Basophils (%) (Auto) 0 % (0-3) 0 % (0-3) Neutrophils # (Auto) 7.5 x10^3/uL (1.8-7.7) 8.0 x10^3/uL (1.8-7.7) Lymphocytes # (Auto) 0.4 x10^3/uL (1.0-4.8) 0.7 x10^3/uL (1.0-4.8) Monocytes # (Auto) 0.3 x10^3/uL (0.0-1.1) 0.5 x10^3/uL (0.0-1.1) Eosinophils # (Auto) 0.0 x10^3/uL (0.0-0.7) 0.0 x10^3/uL (0.0-0.7) Basophils # (Auto) 0.0 x10^3/uL (0.0-0.2) 0.0 x10^3/uL (0.0-0.2) Segmented Neutrophils % 92 % (35-66) Band Neutrophils % 4 % (0-9) Lymphocytes % 4 % (24-48) Platelet Estimate Adequate (ADEQUATE) Sodium Level 136 mmol/L (136-145) 136 mmol/L (136-145) Potassium Level 3.8 mmol/L (3.5-5.1) 3.6 mmol/L (3.5-5.1) Chloride Level 105 mmol/L (98-107) 102 mmol/L (98-107) Carbon Dioxide Level 21 mmol/L (21-32) 23 mmol/L (21-32) Anion Gap 10 (6-14) 11 (6-14) Blood Urea Nitrogen 13 mg/dL (7-20) 9 mg/dL (7-20) Creatinine 0.7 mg/dL (0.6-1.0) 0.7 mg/dL (0.6-1.0) Estimated GFR (Cockcroft-Gault) 98.3 98.3 BUN/Creatinine Ratio 19 (6-20) 13 (6-20) Glucose Level 144 mg/dL (70-99) 140 mg/dL (70-99) Hemoglobin A1c 5.6 % (4.8-5.6) Calcium Level 8.3 mg/dL (8.5-10.1) 8.4 mg/dL (8.5-10.1) Total Bilirubin 1.3 mg/dL (0.2-1.0) 1.3 mg/dL (0.2-1.0) Aspartate Amino Transf (AST/SGOT) 32 U/L (15-37) 35 U/L (15-37) Alanine Aminotransferase (ALT/SGPT) 45 U/L (14-59) 44 U/L (14-59) Alkaline Phosphatase 51 U/L (46-116) 50 U/L (46-116) Total Protein 6.7 g/dL (6.4-8.2) 6.8 g/dL (6.4-8.2) Albumin 2.8 g/dL (3.4-5.0) 2.9 g/dL (3.4-5.0) Albumin/Globulin Ratio 0.7 (1.0-1.7) 0.7 (1.0-1.7) Test 04/12/20 12:25 Ammonia 12 mcmol/L (11-34) Laboratory Tests Test 04/12/20 12:25 Ammonia 12 mcmol/L (11-34) Microbiology 04/09/20 Blood Culture - Preliminary, Resulted NO GROWTH AFTER 3 DAYS 04/09/20 Urine Culture - Final, Complete Medications Current Medications Lorazepam (Ativan) 4 mg PRN Q1HR PRN PO For CIWA 8-14 Last administered on 04/12/20at 22:04; Start 04/08/20 at 23:30 Lorazepam (Ativan) 8 mg PRN Q1HR PRN PO For CIWA 15 or greater; Start 04/08/20 at 23:30 Lorazepam (Ativan Inj) 2 mg PRN Q1HR PRN IV For CIWA 8-14 Last administered on 04/13/20at 02:32; Start 04/08/20 at 23:30 Lorazepam (Ativan Inj) 4 mg PRN Q1HR PRN IV For CIWA 15 or greater Last administered on 04/12/20at 10:42; Start 04/08/20 at 23:30 Haloperidol Lactate (Haldol Inj) 5 mg PRN Q4HRS PRN IVP Hallucinatns,Confusn,Delirium Last administered on 04/11/20at 14:53; Start 04/08/20 at 23:30 Clonidine HCl (Catapres) 0.1 mg PRN Q1HR PRN PO SBP > 180 OR DBP > 100, MRX3 Last administered on 04/09/20at 00:15; Start 04/08/20 at 23:30 Lorazepam (Ativan Inj) 2 mg PRN Q15MIN PRN IV SEE COMMENTS Last administered on 04/08/20at 23:48; Start 04/08/20 at 23:30 Lorazepam (Ativan Inj) 4 mg PRN Q15MIN PRN IV SEE COMMENTS Last administered on 04/09/20at 02:34; Start 04/08/20 at 23:30 Levetiracetam 500 mg/Dextrose 105 ml @ 420 mls/hr Q12HR IV Last administered on 04/12/20at 19:55; Start 04/09/20 at 09:00; Stop 04/13/20 at 08:18; Status DC Ringer's Solution 1,000 ml @ 100 mls/hr Q10H IV Last administered on 04/09/20at 08:57; Start 04/08/20 at 23:30; Stop 04/09/20 at 12:09; Status DC Labetalol HCl (Normodyne Iv Push) 10 mg PRN Q2HRS PRN IVP HYPERTENSION-1ST CHOICE Last administered on 04/10/20at 13:03; Start 04/09/20 at 03:00 Dexmedetomidine HCl 400 mcg/ Sodium Chloride 100 ml @ 0 mls/hr CONT PRN IV PER PROTOCOL Last administered on 04/11/20at 12:56; Start 04/09/20 at 03:00; Stop 04/13/20 at 08:18; Status DC Sodium Chloride 500 ml @ 500 mls/hr 1X PRN PRN IV SEE COMMENTS; Start 04/09/20 at 03:00 Atropine Sulfate (ATROPINE 0.5mg SYRINGE) 0.5 mg PRN Q5MIN PRN IV SEE COMMENTS; Start 04/09/20 at 03:00 Sodium Chloride 1,000 ml @ 50 mls/hr Q20H IV ; Start 04/09/20 at 08:45; Stop 04/09/20 at 09:01; Status DC Thiamine HCl (Thiamine Im) 100 mg DAILY IM Last administered on 04/13/20at 08:26; Start 04/09/20 at 10:00 Hydralazine HCl (Apresoline Inj) 10 mg PRN Q4HRS PRN IVP ELEVATED BP, SEE COMMENTS Last administered on 04/13/20at 08:39; Start 04/09/20 at 10:15 Amlodipine Besylate (Norvasc) 5 mg DAILY PO Last administered on 04/13/20at 08:38; Start 04/09/20 at 10:15 Ceftriaxone Sodium (Rocephin) 1 gm Q24H IVP Last administered on 04/09/20at 10:53; Start 04/09/20 at 11:00; Stop 04/09/20 at 12:06; Status DC Potassium Chloride (Klor-Con) 40 meq 1X ONCE PO ; Start 04/09/20 at 10:15; St op 04/09/20 at 10:16; Status DC Potassium Chloride (Klor-Con) 20 meq DAILYWBKFT PO Last administered on 04/13/20at 08:26; Start 04/10/20 at 08:00 Hydralazine HCl (Apresoline Inj) 10 mg PRN Q4HRS PRN IVP ELEVATED BP, SEE COMMENTS; Start 04/09/20 at 10:15; Status UNV Clonidine HCl (Catapres Tts-1) 1 patch WEEKLY TD Last administered on 04/09/20at 10:57; Start 04/09/20 at 11:00; Stop 04/10/20 at 16:49; Status DC Acetaminophen (Tylenol) 650 mg PRN Q6HRS PRN PO Headaches, Temp > 101.5' Last administered on 04/12/20at 19:55; Start 04/09/20 at 10:15 Lorazepam (Ativan Inj) 0.5 mg PRN Q6HRS PRN IVP ANXIETY / AGITATION; Start 04/09/20 at 10:15 Ondansetron HCl (Zofran) 4 mg PRN Q6HRS PRN IVP NAUSEA/VOMITING; Start 04/09/20 at 10:15 Prochlorperazine (Compazine) 25 mg PRN Q12HR PRN ID NAUSEA/VOMITING; Start 04/09/20 at 10:15 Al Hydroxide/Mg Hydroxide (Mylanta Plus Xs) 30 ml PRN Q3HRS PRN PO HEARTBURN / GAS; Start 04/09/20 at 10:15 Calcium Carbonate/ Glycine (Tums) 500 mg PRN Q3HRS PRN PO HEARTBURN / GAS; Start 04/09/20 at 10:15 Famotidine (Pepcid Vial) 20 mg BID IVP Last administered on 04/12/20at 19:55; Start 04/09/20 at 21:00; Stop 04/13/20 at 08:18; Status DC Heparin Sodium (Porcine) (Heparin Sodium) 5,000 unit Q8HRS SQ Last administered on 04/13/20at 06:25; Start 04/09/20 at 14:00 Sodium Chloride (Normal Saline Flush) 3 ml QSHIFT PRN IV AFTER MEDS AND BLOOD DRAWS; Start 04/09/20 at 10:15 Docusate Sodium (Colace) 100 mg BID PO Last administered on 04/12/20at 19:54; Start 04/09/20 at 21:00 Magnesium Hydroxide (Milk Of Magnesia) 2,400 mg PRN Q12HR PRN PO CONSTIPATION; Start 04/09/20 at 10:15 Vancomycin HCl (Vanco Per Pharmacy) 1 each PRN DAILY PRN MC SEE COMMENTS Last administered on 04/09/20at 13:43; Start 04/09/20 at 11:15; Stop 04/10/20 at 13:16; Status DC Sodium Chloride 1,000 ml @ 1,710 mls/hr Q36M IV ; Start 04/09/20 at 11:30; Stop 04/09/20 at 11:27; Status DC Sodium Chloride 500 ml @ 1,000 mls/hr PRN Q30MIN PRN IV SEE COMMENTS; Start 04/09/20 at 11:30; Stop 04/09/20 at 12:13; Status DC Albuterol/ Ipratropium (Duoneb) 3 ml RTQID NEB Last administered on 04/12/20at 20:15; Start 04/09/20 at 12:00 Sodium Chloride 1,000 ml @ 1,710 mls/hr Q36M PRN IV SEE COMMENTS; Start 04/09/20 at 11:30; Stop 04/13/20 at 08:18; Status DC Vancomycin HCl 1.75 gm/Sodium Chloride 500 ml @ 250 mls/hr 1X ONCE IV Last administered on 04/09/20at 12:06; Start 04/09/20 at 12:00; Stop 04/09/20 at 13:59; Status DC Acyclovir Sodium 575 mg/Dextrose 111.5 ml @ 111.5 mls/ hr Q8HRS IV Last administered on 04/10/20at 06:44; Start 04/09/20 at 14:00; Stop 04/10/20 at 12:30; Status DC Cefepime HCl (Maxipime) 2 gm Q8HRS IVP Last administered on 04/13/20at 06:22; Start 04/09/20 at 14:00; Stop 04/13/20 at 07:39; Status DC Potassium Chloride/Sodium Chloride 1,000 ml @ 100 mls/hr Q10H IV Last admi nistered on 04/09/20at 13:08; Start 04/09/20 at 12:15; Stop 04/09/20 at 22:14; Status DC Ringer's Solution 1,000 ml @ 100 mls/hr Q10H IV ; Start 04/09/20 at 23:00; Stop 04/10/20 at 01:06; Status DC Methylprednisolone Sodium Succinate (SOLU-Medrol 125MG VIAL) 100 mg Q8HRS IV Last administered on 04/13/20at 06:23; Start 04/09/20 at 14:00; Stop 04/13/20 at 08:18; Status DC Vancomycin HCl 1 gm/Sodium Chloride 250 ml @ 250 mls/hr Q8H IV Last administered on 04/10/20at 04:57; Start 04/09/20 at 20:00; Stop 04/10/20 at 12:30; Status DC Vancomycin HCl (Vancomycin Trough Level) 1 each 1X ONCE MC Last administered on 04/10/20at 11:30; Start 04/10/20 at 11:30; Stop 04/10/20 at 11:31; Status DC Acetaminophen (Tylenol Supp) 650 mg PRN Q6HRS PRN ID MILD PAIN / TEMP > 100.3'F Last administered on 04/09/20at 19:42; Start 04/09/20 at 19:30; Stop 04/13/20 at 08:18; Status DC Fentanyl Citrate (Fentanyl 2ml Vial) 50 mcg PRN Q2HR PRN IVP SEVERE PAIN 7-10 Last administered on 04/11/20at 03:46; Start 04/09/20 at 22:45; Stop 04/13/20 at 08:18; Status DC Thiamine HCl 100 mg/Folic Acid 1 mg/Sodium Chloride 1,001.2 ml @ 100.012 mls/hr DAILY IV Last administered on 04/12/20at 09:17; Start 04/10/20 at 12:00; Stop 04/13/20 at 08:18; Status DC Succinylcholine Chloride (Anectine) 100 mg 1X ONCE IV ; Start 04/10/20 at 12:00; Stop 04/10/20 at 11:55; Status DC Etomidate (Amidate) 10 mg 1X ONCE IV ; Start 04/10/20 at 12:00; Stop 04/10/20 at 12:01; Status Cancel Linezolid/Dextrose 300 ml @ 300 mls/hr Q12HR IV Last administered on 04/12/20at 19:55; Start 04/10/20 at 13:00; Stop 04/13/20 at 07:39; Status DC Clonidine HCl (Catapres Tts-2) 1 patch Fr@0900 TD ; Start 04/17/20 at 09:00; Stop 04/13/20 at 08:18; Status DC Lactobacillus Rhamnosus (Culturelle) 1 cap BID PO Last administered on 04/12at 19:55; Start 04/12/20 at 21:00 Amoxicillin/ Clavulanate Potassium (Augmentin 875/ 125mg) 1 tab BID PO Last administered on 04/13/20at 08:26; Start 04/13/20 at 09:00 Levetiracetam (Keppra) 500 mg BID PO Last administered on 04/13/20at 08:30; Start 04/13/20 at 09:00 Famotidine (Pepcid) 20 mg BID PO Last administered on 04/13/20at 08:29; Start 04/13/20 at 09:00 Prednisone (Prednisone) 20 mg DAILY PO Last administered on 04/13/20at 08:29; Start 04/13/20 at 09:00 Vitals/I & O Vital Sign - Last 24 Hours 04/12/20 04/12/20 04/12/20 04/12/20 08:59 09:00 09:24 10:00 Pulse 113 108 108 Resp 18 17 B/P (MAP) 160/117 (131) 160/117 178/97 (124) Pulse Ox 96 95 92 O2 Delivery Room Air Room Air Room Air 04/12/20 04/12/20 04/12/20 04/12/20 11:00 12:00 12:00 12:07 Temp 98.0 98.0 Pulse 106 112 Resp 16 17 B/P (MAP) 166/102 (123) 110/78 (89) Pulse Ox 93 96 95 O2 Delivery Room Air Room Air Room Air Room Air 04/12/20 04/12/20 04/12/20 04/12/20 13:00 14:00 16:23 20:00 Pulse 118 107 Resp 18 16 B/P (MAP) 150/99 (116) 156/95 (115) Pulse Ox 96 97 O2 Delivery Room Air Room Air Room Air Room Air 04/12/20 04/12/20 04/12/20 04/12/20 20:16 20:19 21:22 23:14 Temp 98.5 97.7 98.5 97.7 Pulse 89 89 87 Resp 20 17 B/P (MAP) 172/118 (136) 172/118 171/115 (133) Pulse Ox 95 95 96 O2 Delivery Room Air Room Air Room Air 3/03/0504/13/20 04/13/20 04/13/20 02:55 07:00 08:00 08:38 Temp 98.3 97.5 98.3 97.5 Pulse 77 100 87 Resp 18 18 B/P (MAP) 169/110 (129) 180/119 (139) 187/119 Pulse Ox 95 95 O2 Delivery Room Air Room Air Room Air 04/13/20 08:39 Pulse 87 B/P (MAP) 187/119 Intake and Output 04/12/20 04/12/20 04/13/20 15:00 23:00 07:00 Intake Total 620 ml 360 ml 400 ml Balance 620 ml 360 ml 400 ml Images MRI Brain without IV contrast, 04/11 INDICATION: Reason: seizures, dysconjugate gaze / Spl. Instructions: / History: . TECHNIQUE: Sagittal and axial T1-w and axial T2-w, FLAIR, GRE, coronal T2-w, and diffusion-w images of the brain with ADC maps without IV contrast. COMPARISON: Noncontrast head CT of 04/08/2020 FINDINGS: BRAIN PARENCHYMA: No evidence of hyperacute, acute, or early subacute infarction. There is subcortical white matter FLAIR signal hyperintensity in the bilateral occipital lobes and to lesser extent in the parietal and posterior frontal lobes. VENTRICLES & EXTRA-AXIAL SPACES: Ventricles are within normal limits. Basilar cisterns are patent. No abnormal extra-axial fluid or mass. VESSELS: Normal signal voids in the larger intracranial vessels. ORBITS: Orbital contents are unremarkable. SINUSES: Paranasal sinuses are clear. Tympanic cavities and mastoid air cells are clear. OSSEOUS & SOFT TISSUES: Marrow signal is within normal limits. IMPRESSION: Marked signal abnormalities in the subcortical white matter primarily in the occipital lobes is compatible with posterior reversible encephalopathy in the appropriate clinical context. No evidence of acute infarct, hemorrhage or mass effect. Justicifation of Admission Dx: Justifications for Admission: Justification of Admission Dx: Yes RASHEED TRACY MD Apr 13, 2020 08:59
[2020-04-13] MEDS: LACTOBACILLUS RHAMNOSUS GG 1 CAPSULE. PO SCH (09:00)
[2020-04-13] MEDS ORDERED: levETIRAcetam 500 MG TABLET PO SCH (09:00)
[2020-04-13] MEDS ORDERED: predniSONE 20 MG TABLET PO SCH (09:00)
[2020-04-13] MEDS: DOCUSATE SODIUM 100 MG CAPSULE. PO SCH (09:00)
[2020-04-13] MEDS ORDERED: AMOXICILLIN/K CLAV 875/125MG TABLET. PO SCH (09:00)
[2020-04-13] MEDS ORDERED: FAMOTIDINE 20 MG TABLET. PO SCH (09:00)
[2020-04-13] MEDS ORDERED: LEVE500T56 PO (09:45)
[2020-04-13] MEDS ORDERED: PRED20TA PO (09:45)
[2020-04-13] MEDS ORDERED: AMOX1TAB11 PO (09:45)
--- NOTE | 2020-04-13 09:45 | NUR ---
SS following up with discharge planning. SS reviewed pt chart and discussed with RN. Pt is currently on room air. COVID19 negative. PAT team coming this morning to meet with pt regarding ETOH. PT/OT recommended acute rehabilitation. Pt wanting to return to home at this time. SS will continue to follow for discharge planning.
[2020-04-13] MEDS ORDERED: AMLO-186 PO (09:55)
--- NOTE | 2020-04-13 09:58 | PDOC3 ---
Discharge Summary Visit Information Date of Admission: Apr 08, 2020 Date of Discharge: Apr 13, 2020 Admitting Diagnosis: New onset seizures Final Diagnosis New onset seizures Brief Hospital Course Allergies Allergies Coded Allergies Type Severity Reaction Last Updated Verified No Known Drug Allergies 04/08/20 No Vital Signs Vital Signs Date Time Temp Pulse Resp B/P (MAP) Pulse Ox O2 Delivery O2 Flow Rate FiO2 04/13/20 08:39 87 187/119 04/13/20 08:00 Room Air 04/13/20 07:00 97.5 18 95 97.5 Lab Results Laboratory Tests Test 04/11/20 11:57 04/11/20 16:05 04/11/20 17:34 04/12/20 04:45 Glucose (Fingerstick) 204 mg/dL (70-99) 145 mg/dL (70-99) White Blood Count 8.3 x10^3/uL (4.0-11.0) 9.2 x10^3/uL (4.0-11.0) Red Blood Count 4.62 x10^6/uL (3.50-5.40) 4.47 x10^6/uL (3.50-5.40) Hemoglobin 15.4 g/dL (12.0-15.5) 14.9 g/dL (12.0-15.5) Hematocrit 45.2 % (36.0-47.0) 44.1 % (36.0-47.0) Mean Corpuscular Volume 98 fL (79-100) 99 fL (79-100) Mean Corpuscular Hemoglobin 33 pg (25-35) 33 pg (25-35) Mean Corpuscular Hemoglobin Concent 34 g/dL (31-37) 34 g/dL (31-37) Red Cell Distribution Width 13.5 % (11.5-14.5) 13.2 % (11.5-14.5) Platelet Count 161 x10^3/uL (140-400) 209 x10^3/uL (140-400) Neutrophils (%) (Auto) 91 % (31-73) 87 % (31-73) Lymphocytes (%) (Auto) 5 % (24-48) 7 % (24-48) Monocytes (%) (Auto) 4 % (0-9) 5 % (0-9) Eosinophils (%) (Auto) 0 % (0-3) 0 % (0-3) Basophils (%) (Auto) 0 % (0-3) 0 % (0-3) Neutrophils # (Auto) 7.5 x10^3/uL (1.8-7.7) 8.0 x10^3/uL (1.8-7.7) Lymphocytes # (Auto) 0.4 x10^3/uL (1.0-4.8) 0.7 x10^3/uL (1.0-4.8) Monocytes # (Auto) 0.3 x10^3/uL (0.0-1.1) 0.5 x10^3/uL (0.0-1.1) Eosinophils # (Auto) 0.0 x10^3/uL (0.0-0.7) 0.0 x10^3/uL (0.0-0.7) Basophils # (Auto) 0.0 x10^3/uL (0.0-0.2) 0.0 x10^3/uL (0.0-0.2) Segmented Neutrophils % 92 % (35-66) Band Neutrophils % 4 % (0-9) Lymphocytes % 4 % (24-48) Platelet Estimate Adequate (ADEQUATE) Sodium Level 136 mmol/L (136-145) 136 mmol/L (136-145) Potassium Level 3.8 mmol/L (3.5-5.1) 3.6 mmol/L (3.5-5.1) Chloride Level 105 mmol/L (98-107) 102 mmol/L (98-107) Carbon Dioxide Level 21 mmol/L (21-32) 23 mmol/L (21-32) Anion Gap 10 (6-14) 11 (6-14) Blood Urea Nitrogen 13 mg/dL (7-20) 9 mg/dL (7-20) Creatinine 0.7 mg/dL (0.6-1.0) 0.7 mg/dL (0.6-1.0) Estimated GFR (Cockcroft-Gault) 98.3 98.3 BUN/Creatinine Ratio 19 (6-20) 13 (6-20) Glucose Level 144 mg/dL (70-99) 140 mg/dL (70-99) Hemoglobin A1c 5.6 % (4.8-5.6) Calcium Level 8.3 mg/dL (8.5-10.1) 8.4 mg/dL (8.5-10.1) Total Bilirubin 1.3 mg/dL (0.2-1.0) 1.3 mg/dL (0.2-1.0) Aspartate Amino Transf (AST/SGOT) 32 U/L (15-37) 35 U/L (15-37) Alanine Aminotransferase (ALT/SGPT) 45 U/L (14-59) 44 U/L (14-59) Alkaline Phosphatase 51 U/L (46-116) 50 U/L (46-116) Total Protein 6.7 g/dL (6.4-8.2) 6.8 g/dL (6.4-8.2) Albumin 2.8 g/dL (3.4-5.0) 2.9 g/dL (3.4-5.0) Albumin/Globulin Ratio 0.7 (1.0-1.7) 0.7 (1.0-1.7) Test 04/12/20 12:25 Ammonia 12 mcmol/L (11-34) Laboratory Tests Test 04/12/20 12:25 Ammonia 12 mcmol/L (11-34) Brief Hospital Course Ms Berrios is a 29-year-old female was brought to the ER in [place] with seizure activity. She apparently had been visiting a friend from [place] for a and consumed a lot of alcohol 4 days prior to admission. Her last drink was 04/07/2020. She complained of fever and chills and was found by the friend on the apartment floor with abnormal activity, which appeared to be due to seizures. The patient declined transfer initially and then had another seizure. She was confused in the Emergency Room and thought that she was in [place]. There was tongue swelling however. The patient had a Yg coma scale of 7. Intubation was considered, though instead a nasal trumpet was inserted. She was started on IV Keppra and a Precedex drip. She has had no further seizures. Apparently, family states that she has a history of binge alcohol consumption. Lactate > 7 on admit. Transferred to [facility] from [place] for further care. CT head shows no fracture of the cervical spine. Ventricular system is within normal limits without compression or hydrocephalus. No vascular territory infarction is seen. No hemorrhage is identified. CTA of the neck shows negative C-spine for acute trauma. There is patent intracranial and cervical arterial vasculature without stenosis, occlusion or aneurysm. 04/10: Nasal trumpet out, more alert, but encephalopathic. Continue cefepime. DC IV Vanco and acyclovir 04/11: Nasal trumpet out, more alert, but remains encephalopathic. Continue cefe pime. DC IV Vanco and acyclovir. Restless night ativan haldol given. MRI HEAD appears to be PRES 04/12: Nasal trumpet out, more alert, much more alert, talking with friend in room. Admits to drinking a "handle of vodka a day, sometimes, more:" Marked signal abnormalities in the subcortical white matter primarily in the occipital lobes is compatible with posterior reversible encephalopathy No further seizures. Ambulated the unit. Is tearful noting she just came here to help a friend mitigate bedbugs and parents house. She is very active normally and has been "partying too hard". She has multiple questions about PRES. BP control. Discussed with neurology okay to discharge on Keppra taper. Problem list: New-onset seizures History of polysubstance abuse History of psychiatric disease associated with stress Fever and chills, rule out sepsis Disconjugate gaze. possible cva Lactic acidosis, which could be from alcohol withdrawal Possible aspiration. Binge drinking.by hx HX COCAINE ABUSE Plan: Greater than 30 minutes spent on d/c home with self care. Discharge Information Condition at Discharge: Improved Follow Up: Weeks Disposition/Orders: D/C to Home Scheduled Amoxicillin/Potassium Clav (Amox Tr-K Clv 875-125 Mg Tab) 1 Each Tablet, 1 TAB P O BID for Aspiration Pneumonia for 5 Days, #10 Prescribed by: JEANNA STEPHENSON MD on 04/13/20 0945 Levetiracetam (Keppra) 500 Mg Tablet, 500 MG PO BID for Seizures for 30 Days, #60 Ref 2 Prescribed by: JEANNA STEPHENSON MD on 04/13/20 0945 Prednisone (Prednisone) 20 Mg Tablet, 20 MG PO DAILY for Bronchitis for 5 Days, #5 Prescribed by: JEANNA STEPHENSON MD on 04/13/20 0945 Justicifation of Admission Dx: Justifications for Admission: Justification of Admission Dx: Yes JEANNA STEPHENSON MD Apr 13, 2020 09:58
[2020-04-17] MEDS ORDERED: cloNIDine TTS-2 1 PATCH PATCH TD SCH (09:00)
== END 2020-04-13 11:30 | disposition home or self-care (01) | DRG 100 ==
LOC: 1 WEST ICU 22:27
PROVIDERS: ADMIT Internal Medicine; ATTEND Internal Medicine
DX: G40.89 Other seizures (principal); I67.83 Posterior reversible encephalopathy syndrome; G92 Toxic encephalopathy; F10.239 Alcohol dependence with withdrawal, unspecified; E87.2 Acidosis; F14.10 Cocaine abuse, uncomplicated; I16.0 Hypertensive urgency; K14.6 Glossodynia; E83.42 Hypomagnesemia; E87.6 Hypokalemia; F32.9 Major depressive disorder, single episode, unspecified; F41.9 Anxiety disorder, unspecified; F99 Mental disorder, not otherwise specified; I10 Essential (primary) hypertension; R06.03 Acute respiratory distress; F43.9 Reaction to severe stress, unspecified; R74.01 Elevation of levels of liver transaminase levels; R40.2430 Glasgow coma scale score 3-8, unspecified time; Y90.0 Blood alcohol level of less than 20 mg/100 ml; F17.210 Nicotine dependence, cigarettes, uncomplicated; Z20.822 Contact with and (suspected) exposure to COVID-19; Z82.49 Family history of ischemic heart disease and other diseases of the circulatory system
CPT/HCPCS: 36415; 36600; 70551; 71045; 71046; 80048; 80053; 80202; 80307; 81001; 82140; 82805; 82962; 83036; 83605; 83615; 83735; 84145; 84443; 85007; 85025; 85379; 85384; 85610; 85730; 86140; 87040; 87086; 87426; 93005; 94640; 94760; 95816; 99406; G0480; J0133; J0360; J0692; J0696; J1630; J1644; J1953; J2020; J2060; J2930; J3010; J3370; J3411; J3480; J3490; J7030; J7040; J7050; J7060; J7120; J7512; 92610-GN; 97530-GP; 97535-GO; G0378